=== PATIENT | female | born 1965 | race Caucasian/White ===

== ENCOUNTER 2022-08-02 10:55 | Inpatient (IN) | payer BC ==
[2022-08-02] MEDS ORDERED: CEFTRIAXONE 1000 MG/VIAL ONE (11:46)
[2022-08-02] MEDS ORDERED: NA CHLORIDE 0.9% 1,000 ML ONE (11:46)
[2022-08-02 12:02] LABS: Absolute Lymphocytes (CBC) 0.6 K/uL (0.7-4.9); Hematocrit 34.9 % (36.0-45.0); MCV 92.2 fL (80-100); MPV 7.7 fL (7.6-11.3); Protime INR 1.17; RBC Red Blood Cell Count 3.79 M/uL (3.86-4.86)
[2022-08-02] MEDS ORDERED: NA CHLORIDE 0.9% 2,000 ML ONE (12:09)
--- NOTE | 2022-08-02 12:09 | RAD REPORT ---
EXAM DESCRIPTION: RAD - Chest Single View - 08/02/2022 11:42 am CLINICAL HISTORY: CHEST PAIN COMPARISON: February 05 examination TECHNIQUE: AP portable chest image was obtained 08/02/2022 11:42 am . FINDINGS: Lung volumes are low. No peripheral mass or consolidations seen. Failure and volume overlo ad are not suspected. Heart size is magnified by shallow inspiration portable imaging. A mild cardiom egaly is suspected. No vascular engorgement seen. No measurable pleural effusion and no pneumothorax. No acute bony abnormality seen. No acute aortic findings suspected. IMPRESSION: Limited portable study without acute cardiopulmonary finding.
[2022-08-02] MEDS ORDERED: NA CHLORIDE 0.9% 100 ML IV ONE (12:10)
[2022-08-02] MEDS ORDERED: PIPERACIL/TAZO 3.375 GM VIAL IV ONE (12:10)
[2022-08-02 12:24] LABS: Urine Blood Trace-lysed (Negative); Urine Glucose Negative (Negative); Urine Protein 2+ (Negative); Urine Specific Gravity 1.025 (1.005-1.030); Urine pH 5.5 (5.0-7.0)
[2022-08-02 12:33] LABS: Blood Morphology Comment NOT SEEN (NOT SEEN); Platelet Estimate ADEQ
[2022-08-02] MEDS ORDERED: ERTAPENEM NA 1 GM in NA CHLORIDE 0.9% 100 ML IVPB ONE (13:00)
[2022-08-02 13:13] LABS: Albumin 2.3 g/dL (3.4-5.0); Bilirubin Direct 0.4 mg/dL (0-0.2); Bilirubin Total 0.7 mg/dL (0.2-1.0); Magnesium 2.3 mg/dL (1.6-2.4); Potassium 3.7 mmol/L (3.5-5.1); Protein, Total 6.6 g/dL (6.4-8.2); Troponin High Sensitivity 12.7 pg/mL (<58.9)
--- NOTE | 2022-08-02 13:28 | ER ---
Nurse's Notes [facility] Name: Marcie Da Silva Age: 57 yrs Sex: Female : 1965 Arrival Date: 08/02/2022 Time: 11:00 Bed 3 Private MD: Diagnosis: Morbid (severe) obesity with alveolar hypoventilation;Hypotension, unspecified-sepsis;Severe sepsis with septic shock;Other and unspecified ventral hernia with gangrene-and perforated viscus;Elevated white blood cell count;Acute kidney failure, unspecified Presentation: 08/02 11:20 Chief complaint: Pt's states "We saw Dr. Ricketts this morning because she's been aa5 sick since before and she was taking prednisone per the telemedicine doctor; Dr. Ricketts said to bring her in because her blood pressure was 70/40". Pt's states "she's coughing up phlegm and her stomach started hurting after having coughing episodes and the stomach pain hasn't gone away". 11:20 Coronavirus screen: cough unrelated to allergies. Ebola Screen: Patient denies travel aa5 to an Ebola-affected area in the 21 days before illness onset. Initial Sepsis Screen: Does the patient meet any 2 criteria? HR > 90 bpm. Does the patient have a suspected source of infection? Yes: Productive cough/pneumonia. Risk Assessment: Do you want to hurt yourself or someone else? Patient reports no desire to harm self or others. Onset of symptoms was 2021. 11:20 Acuity: LEISEO 3 aa5 11:20 Method Of Arrival: Wheelchair aa5 Historical: - Allergies: 11:29 PENICILLINS; aa5 - PMHx: 11:29 Hypertensive disorder; Hypercholesterolemia; Borderline Diabetes; aa5 - PSHx: 11:29 Hernia Sx; aa5 - Immunization history:: Adult Immunizations unknown. - Social history:: Smoking status: Patient denies any tobacco usage or history of. Screenin:04 [facility] ED Fall Risk Assessment (Adult) History of falling in the last 3 months, ld1 including since admission No falls in past 3 months (0 pts). Abuse screen: Denies threats or abuse. Denies injuries from another. Nutritional screening: No deficits noted. Tuberculosis screening: No symptoms or risk factors identified. Assessment: 11:48 Reassessment: Code sepsis called at 1138. General: Appears in no apparent distress. ld1 comfortable, Behavior is calm, cooperative, appropriate for age. Pain: Complains of pain in abdomen Pain does not radiate. Pain currently is 8 out of 10 on a pain scale. Quality of pain is described as sharp, throbbing. Neuro: Level of Consciousness is awake, alert, obeys commands, Oriented to person, place, time, situation. Cardiovascular: Capillary refill < 3 seconds Patient's skin is warm and dry. Cardiovascular: Rhythm is sinus tachycardia. Respiratory: Respiratory: Airway is patent Respiratory effort is even, unlabored. GI: Abdomen is round non-distended, Bowel sounds present X 4 quads. Abd is soft Abdomen is tender to palpation X 4 quads. : No signs and/or symptoms were reported regarding the genitourinary system. EENT: No signs and/or symptoms were reported regarding the EENT system. Derm: No signs and/or symptoms reported regarding the dermatologic system. Musculoskeletal: No signs and/or symptoms reported regarding the musculoskeletal system. 11:55 Reassessment: Notified ERP of VS. Pressure bag applied to fluids. 2nd line in place to ld1 left wrist. See MAR for orders. 12:10 Reassessment: ERP at bedside providing care. Patient states symptoms have not improved. ld1 12:43 Reassessment: Pt taken to CT via stretcher. chasidy 14:03 Reassessment: OR team at bedside discussing care. OR team transporting to OR. ld1 Vital Signs: 11:20 BP 93 / 53; Pulse 114; Resp 18 S; Temp 98.1(TE); Pulse Ox 98% on R/A; Weight 104.33 kg aa5 (R); Height 5 ft. 2 in. (157.48 cm) (R); 11:41 BP 72 / 53; Pulse 111; ld1 11:48 BP 67 / 49; Pulse 110; Resp 24; Pulse Ox 96% on R/A; ld1 12:45 BP 84 / 40; Pulse 109; Resp 18; Pulse Ox 97% on R/A; ld1 13:18 BP 89 / 52; Pulse 108; Resp 26; Pulse Ox 100% on R/A; mb9 13:47 BP 95 / 61; Pulse 108; Resp 28; Pulse Ox 98% on R/A; ld1 14:03 BP 104 / 67; Pulse 109; Resp 18; Pulse Ox 97% on R/A; ld1 11:20 Body Mass Index 42.07 (104.33 kg, 157.48 cm) aa5 ED Course: 11:00 Patient arrived in ED. mr 11:03 Dimitri Stinson MD is Attending Physician. sd 11:24 Arm band placed on. aa5 11:29 Triage completed. aa5 11:35 Sil Benito, ANIA is Primary Nurse. ld1 11:43 XRAY Chest (1 view) In Process Unspecified. EDMS 11:45 Patient has correct armband on for positive identification. Placed in gown. Bed in low ld1 position. Call light in reach. Side rails up X2. laboratory monitor on. Pulse ox on. NIBP on. Door closed. Noise minimized. 11:45 No provider procedures requiring assistance completed. Patient admitted, IV remains in ld1 place. 11:53 Inserted saline lock: 20 gauge in left wrist, using aseptic technique. zm 11:55 Inserted saline lock: 20 gauge in right wrist, using aseptic technique. Blood collected.zm 11:56 Lactate w/ 2H reflex if indic. Sent. zm 11:56 Lipase Sent. zm 11:56 Blood Culture Adult (2) Sent. zm 11:56 Basic Metabolic Panel Sent. zm 11:56 CBC with Diff Sent. zm 11:56 LFT's Sent. zm 11:56 Magnesium Sent. zm 11:56 NT PRO-BNP Sent. zm 11:56 PT-INR Sent. zm 11:56 Troponin HS Sent. zm 12:28 COVID-19/FLU A+B Sent. ld1 12:59 Chest Abd Pelvis Wo Con In Process Unspecified. EDMS 13:19 Kilo Bae MD is Hospitalizing Provider. [facility] Administered Medications: 11:56 Drug: NS 0.9% 1000 ml Route: IV; Rate: 1 bolus; Site: right wrist; ld1 11:56 Drug: Rocephin (cefTRIAXone) 1 grams Route: IV; Rate: per protocol; Site: left wrist; ld1 13:46 Drug: InvANZ (ertapenem) 1 grams Route: IVPB; Infused Over: 30 mins; Site: right wrist; ld1 Medication: 14:05 VIS not applicable for this client. ld1 Outcome: 13:27 Decision to Hospitalize by Provider. sd 14:04 Admitted to OR accompanied by nurse, via stretcher, with chart. ld1 14:04 Condition: stable 14:04 Instructed on the need for admit. 14:05 Patient left the ED. ld1 Signatures: Dispatcher [employer] EDDimitri Bradley MD MD cha Rivera, Mary mr Frey, Audra RN RN aa5 Sil Benito RN RN ld1 Gisselle Campa, Preethi Jara, RN RN mb9 Corrections: (The following items were deleted from the chart) 11:31 11:20 BP 93 / 53; Pulse 114bpm; Resp 18bpm; Spontaneous; Pulse Ox 98% RA; Temp 98.1F aa5 Temporal; aa5 11:31 11:29 Allergies: No Known Allergies; aa5 aa5
--- NOTE | 2022-08-02 13:28 | EDPHYS ---
Physician Documentation [facility] Name: Marcie Da Silva Age: 57 yrs Sex: Female : 1965 Arrival Date: 08/02/2022 Time: 11:00 Bed 3 Private MD: ED Physician Dimitri Stinson HPI: 08/02 12:19 This 57 yrs old Female presents to ER via Wheelchair with complaints of sd Abdominal Pain, Decreased Appetite, Shortness Of Breath, Low BP. 12:19 This 57 yrs old Female presents to ER via Wheelchair with complaints of sd Abdominal Pain, Decreased Appetite, Shortness Of Breath, Low BP. 12:19 The patient has shortness of breath at rest, with light activity. sd 12:19 Onset: The symptoms/episode began/occurred 5 day(s) ago. Duration: The symptoms are sd continuous, and are steadily getting worse. The patient's shortness of breath is aggravated by nothing, is alleviated by sitting up. Associated signs and symptoms: Pertinent positives:. 12:20 The patient presents with abdominal pain in the upper abdomen, in the lower abdomen. sd Severity of symptoms: At their worst the symptoms were moderate in the emergency department the symptoms are unchanged. The symptoms do not radiate. Associated signs and symptoms: none. The symptoms are described as constant. Historical: - Allergies: 11:29 PENICILLINS; aa5 - PMHx: 11:29 Hypertensive disorder; Hypercholesterolemia; Borderline Diabetes; aa5 - PSHx: 11:29 Hernia Sx; aa5 - Immunization history:: Adult Immunizations unknown. - Social history:: Smoking status: Patient denies any tobacco usage or history of. ROS: 12:21 Constitutional: Negative for fever, chills, and weight loss, Eyes: Negative for injury, sd pain, redness, and discharge, ENT: Negative for injury, pain, and discharge, Neck: Negative for injury, pain, and swelling, Cardiovascular: Negative for chest pain, palpitations, and edema, Back: Negative for injury and pain, : Negative for injury, bleeding, discharge, and swelling, MS/Extremity: Negative for injury and deformity, Skin: Negative for injury, rash, and discoloration, Neuro: Negative for headache, weakness, numbness, tingling, and seizure, Psych: Negative for depression, anxiety, suicide ideation, homicidal ideation, and hallucinations, Allergy/Immunology: Negative for hives, rash, and allergies, Endocrine: Negative for neck swelling, polydipsia, polyuria, polyphagia, and marked weight changes, Hematologic/Lymphatic: Negative for swollen nodes, abnormal bleeding, and unusual bruising. 12:21 Respiratory: Positive for cough, shortness of breath. 12:21 Abdomen/GI: Positive for abdominal pain, nausea and vomiting, of the right upper quadrant, left upper quadrant, right lower quadrant and left lower quadrant. Exam: 12:21 Constitutional: This is a well developed, well nourished patient who is awake, alert, sd and in no acute distress. Head/Face: Normocephalic, atraumatic. Eyes: Pupils equal round and reactive to light, extra-ocular motions intact. Lids and lashes normal. Conjunctiva and sclera are non-icteric and not injected. Cornea within normal limits. Periorbital areas with no swelling, redness, or edema. ENT: Nares patent. No nasal discharge, no septal abnormalities noted. Tympanic membranes are normal and external auditory canals are clear. Oropharynx with no redness, swelling, or masses, exudates, or evidence of obstruction, uvula midline. Mucous membranes moist. Neck: Trachea midline, no thyromegaly or masses palpated, and no cervical lymphadenopathy. Supple, full range of motion without nuchal rigidity, or vertebral point tenderness. No Meningismus. Chest/axilla: Normal chest wall appearance and motion. Nontender with no deformity. No lesions are appreciated. Cardiovascular: Regular rate and rhythm with a normal S1 and S2. No gallops, murmurs, or rubs. Normal PMI, no JVD. No pulse deficits. Respiratory: Lungs have equal breath sounds bilaterally, clear to auscultation and percussion. No rales, rhonchi or wheezes noted. No increased work of breathing, no retractions or nasal flaring. Back: No spinal tenderness. No costovertebral tenderness. Full range of motion. Female : Normal external genitalia. Skin: Warm, dry with normal turgor. Normal color with no rashes, no lesions, and no evidence of cellulitis. MS/ Extremity: Pulses equal, no cyanosis. Neurovascular intact. Full, normal range of motion. Neuro: Awake and alert, GCS 15, oriented to person, place, time, and situation. Cranial nerves II-XII grossly intact. Motor strength 5/5 in all extremities. Sensory grossly intact. Cerebellar exam normal. Normal gait. Psych: Awake, alert, with orientation to person, place and time. Behavior, mood, and affect are within normal limits. 12:21 ECG was reviewed by the Attending Physician. 12:21 Abdomen/GI: Inspection: distension, Bowel sounds: absent, Palpation: moderate abdominal tenderness, severe abdominal tenderness, in the right upper quadrant, left upper quadrant, right lower quadrant and left lower quadrant, Liver: no appreciated palpable abnormalities, Hernia: not appreciated. Vital Signs: 11:20 BP 93 / 53; Pulse 114; Resp 18 S; Temp 98.1(TE); Pulse Ox 98% on R/A; Weight 104.33 kg aa5 (R); Height 5 ft. 2 in. (157.48 cm) (R); 11:41 BP 72 / 53; Pulse 111; ld1 11:48 BP 67 / 49; Pulse 110; Resp 24; Pulse Ox 96% on R/A; ld1 12:45 BP 84 / 40; Pulse 109; Resp 18; Pulse Ox 97% on R/A; ld1 13:18 BP 89 / 52; Pulse 108; Resp 26; Pulse Ox 100% on R/A; mb9 13:47 BP 95 / 61; Pulse 108; Resp 28; Pulse Ox 98% on R/A; ld1 14:03 BP 104 / 67; Pulse 109; Resp 18; Pulse Ox 97% on R/A; ld1 11:20 Body Mass Index 42.07 (104.33 kg, 157.48 cm) aa MDM: 11:07 Patient medically screened. sd 12:22 Differential diagnosis: Anemia CHF exacerbation, Myocardial Infarction pneumonia, sd Sepsis bowel obstruction, Cholelithiasis, diverticulitis, gastritis, GI Bleed, Irritable bowel syndrome, sympomatic leaking abdominal aortic aneurysm, non-specific abd pain, pancreatitis, Peptic Ulcer Disease, Pyelonephritis, urinary tract infection. Antibiotic administration: zosyn. The patient's Wells Deep Vein Thrombosis Score was calculated as follows: Heart Rate >100 BPM (1.5 Pts) Total Score: 0-2 Pts- Low Risk. The patient's pulmonary embolism risk score was calculated as follows: the patients heart rate is greater than 100 beats per minute (1.5 Pts) Total Score: 0-2 points. This patient was found to be at low risk for a pulmonary embolism by using the Well's assessment criteria. Immunization status: Influenza vaccine: Data reviewed: vital signs, nurses notes, lab test result(s), EKG, radiologic studies, CT scan, plain films. Data interpreted: field education coordinator: rate is 110 beats/min, rhythm is regular, Pulse oximetry: on room air is 96 %. Test interpretation: by ED physician or midlevel provider: ECG, plain radiologic studies. 08/02 11:05 Order name: Basic Metabolic Panel; Complete Time: 13:16 [facility] 08/02 11:05 Order name: CBC with Diff; Complete Time: 12:48 [facility] 08/02 11:05 Order name: LFT's; Complete Time: 13:16 [facility] 08/02 11:05 Order name: Magnesium; Complete Time: 13:16 [facility] 08/02 11:05 Order name: NT PRO-BNP; Complete Time: 13:16 [facility] 08/02 11:05 Order name: PT-INR; Complete Time: 12:17 [facility] 08/02 11:05 Order name: Troponin HS; Complete Time: 13:16 [facility] 08/02 11:05 Order name: Blood Culture Adult (2) [facility] 08/02 11:05 Order name: Lipase; Complete Time: 13:16 [facility] 08/02 11:05 Order name: Lactate w/ 2H reflex if indic.; Complete Time: 12:48 [facility] 08/02 11:05 Order name: Urine Microscopic Only [facility] 08/02 12:18 Order name: COVID-19/FLU A+B; Complete Time: 13:48 [facility] 08/02 12:25 Order name: Urine Dipstick-Ancillary; Complete Time: 12:48 [facility] 08/02 12:27 Order name: Urine Dipstick-Ancillary [facility] 08/02 11:05 Order name: XRAY Chest (1 view); Complete Time: 12:17 [facility] 08/02 11:05 Order name: EKG; Complete Time: 11:06 [facility] 08/02 11:05 Order name: Cardiac monitoring; Complete Time: 11:48 [facility] 08/02 11:05 Order name: EKG - Nurse/Tech; Complete Time: 11:48 [facility] 08/02 11:05 Order name: IV Saline Lock; Complete Time: 11:48 sd 01/04 11:05 Order name: Labs collected and sent; Complete Time: 11:48 sd 08/02 11:05 Order name: O2 Per Protocol; Complete Time: 11:48 sd 08/02 11:05 Order name: O2 Sat Monitoring; Complete Time: 11:48 sd 08/02 12:33 Order name: Manual Differential; Complete Time: 12:48 EDMS 08/02 12:58 Order name: Chest Abd Pelvis Wo Con; Complete Time: 13:48 EDMS 08/02 13:15 Order name: CREATININE WHOLE BLOOD; Complete Time: 13:16 EDMS 08/02 13:49 Order name: Type And Screen; Complete Time: 02:53 bd 08/02 11:05 Order name: Urine Dipstick-Ancillary (obtain specimen); Complete Time: 12:28 sd 08/02 11:58 Order name: IV Saline Lock - Large Bore; Complete Time: 12:05 sd 08/02 12:07 Order name: Labs - recollect needed: recollect green top; Complete Time: 12:42 bd EC:21 Rate is 113 beats/min. Rhythm is regular. QRS Kevin is Normal. ND interval is normal. sd QRS interval is normal. QT interval is normal. No Q waves. T waves are Normal. No ST changes noted. Clinical impression: Sinus tachycardia. Interpreted by me. Reviewed by me. Administered Medications: 11:56 Drug: NS 0.9% 1000 ml Route: IV; Rate: 1 bolus; Site: right wrist; ld1 11:56 Drug: Rocephin (cefTRIAXone) 1 grams Route: IV; Rate: per protocol; Site: left wrist; ld1 13:46 Drug: InvANZ (ertapenem) 1 grams Route: IVPB; Infused Over: 30 mins; Site: right wrist; ld1 Disposition: 13:28 Critical Care:. sd Disposition Summary: 08/02/22 13:27 Hospitalization Ordered Hospitalization Status: Inpatient Admission sd Provider: Kilo Bae cha Location: Operating Room sd Condition: Guarded sd Problem: new sd Symptoms: have improved sd Bed/Room Type: Standard sd Room Assignment: sd Diagnosis - Morbid (severe) obesity with alveolar hypoventilation sd - Hypotension, unspecified - sepsis sd - Severe sepsis with septic shock sd - Other and unspecified ventral hernia with gangrene - and perforated viscus sd - Elevated white blood cell count sd - Acute kidney failure, unspecified sd Forms: - Medication Reconciliation Form sd - SBAR form sd Critical care time excluding procedures: 13:28 Critical care time: Bedside Care: 35 minutes, Consultation: 10 minutes, Family sd Intervention: 10 minutes. Total time: 55 minutes Signatures: Dispatcher [employer] EDMS Marcie Santiago Corey, MD MD cha Mickail, Joel, PA PA jmm Calderon, Audri RN RN aa5 [place], PATIENT SERVICE REPRESENTATIVE-C PATIENT SERVICE REPRESENTATIVE-Cla1 Sil Benito RN RN ld1 Corrections: (The following items were deleted from the chart) 11:31 11:29 Allergies: No Known Allergies; aa5 aa5 12:58 11:07 Abdomen Pelvis W Con+CT.RAD.BRZ ordered. EDMT EDMT
--- NOTE | 2022-08-02 13:33 | RAD REPORT ---
EXAM DESCRIPTION: CT - Chest Abd Pelvis Wo Con - 08/02/2022 12:58 pm CLINICAL HISTORY: Abdominal pain, acute, nonlocalized COMPARISON: Chest Single View dated 08/02/2022 TECHNIQUE: Axial 5 millimeter thick images of the chest, abdomen and pelvis were obtained without IV contrast. Oral contrast was administered. All CT scans are performed using dose optimization technique as appropriate and may include automated exposure control or mA/KV adjustment according to patient size. FINDINGS: The lungs are clear of mass and infiltrate. There is a 3.5 centimeter air-filled cystic c avity in the medial superior left upper lobe. No pneumothorax or pleural effusion. No chest wall mas s or abnormal axillary lymphadenopathy seen. Mediastinal and hilar regions show no mass or lymphaden opathy. No pericardial thickening or effusion. Heart size is upper normal to slightly enlarged. The liver, spleen and pancreas show no significant findings for non contrast imaging. Gallbladder an d biliary tree are normal. No hydronephrosis or obstructing calculus in either kidney. No nonobstructing calculi seen. There is an exophytic 2 centimeter low-density mass anterior upper pole left kidney that is probably an incide ntal cyst. Both kidneys appear mildly edematous, slightly worse on the right. There is perinephric st randing present. Right adrenal gland is unremarkable. The left adrenal gland contains a 3.0 centimete r low-density mass with a 6 HU attenuation value. There is an additional 4.6 centimeter fatty left ad renal mass with a -72 HU attenuation value. Neither is regarded as significant. Urinary bladder is co ntracted around a Huynh catheter. A 2.5 centimeter calcified uterine fibroid is present. Ovarian abno rmality is not suspected. No gastric dilatation or wall thickening. No suspicious gastric finding seen. Duodenum is normal size . Multiple dilated small bowel loops are present up to 3.7 cm in diameter from the ligament of Treitz to the approximately proximal ileum level. Distal most small bowel loops are not herniated. No dilat ion of the colon. The patient has a very complex ventral hernia with multiple abdominal wall defects from the umbilical to suprapubic region of the abdominal wall. There are numerous herniated small bow el loops in the more inferior intra umbilical portion of the hernia. The small bowel loops are not di lated. Area of greatest concern is at the superior aspect of the hernia at the level of the umbilicus . The mid transverse colon herniates through 1 of the small defects in the abdominal wall. There is a butting dilated small bowel. Moderately prominent extraluminal free air is present clustered in this area where the mid transverse colon herniates. Exact site of perforation is not seen. The colon perfo ration would be more common and a small bowel perforation. A separate mass of the small bowel is not seen. The small bowel anastomosis is present within the herniated small bowel in the inferior right p ortion of the hernia. The rutledge at the anastomosis are not thickened or edematous. No acute or pathologic bone process seen. Patient has very pronounced degenerative change near the rossy mbosacral junction. IMPRESSION: Bowel perforation is present and favored to be in the mid transverse colon where the col on herniates through 1 of the many small hernia defects in the periumbilical region. Moderate amount of free intraperitoneal air is present. Small bowel perforation is possible as well. Small bowel obstruction is present with numerous dilated small bowel loops from the ligament of Treitz to the proximal ileum level. A discrete small bowel ma ss is not seen. No disruption of the distal small bowel anastomosis identifiable. Patient has a very large and complex ventral hernia that extends from the umbilical to the suprapubic region. There are numerous defects in the abdominal wall. Inferiorly the complex hernia contains num erous nondilated small bowel loops. No hydronephrosis of either kidney. No obstructing calculi. Both kidneys do appear slightly edematous . Isodense masses and pyelonephritis are not excluded. No abscess.
[2022-08-02 13:35] LABS: SARS-COV-2 RT PCR NEGATIVE (NEGATIVE)
[2022-08-02] MEDS ORDERED: Ringers Lactate 1,000 ML IV ONE (14:06)
[2022-08-02] MEDS ORDERED: BUPIVACAINE 0.25% PF 30 ML VIAL ONE (14:11)
[2022-08-02] MEDS ORDERED: SUCCINYLCHOLINE 20 MG/ML (10 ML) IV ONE ×2 (14:34→14:39)
[2022-08-02] MEDS ORDERED: propofoL 200 MG/20 ML VIAL IV ONE (14:36)
[2022-08-02] MEDS ORDERED: FENTANYL CITR 100 MCG/2 ML ONE ×3 (14:36→18:41)
[2022-08-02] MEDS ORDERED: LIDOCAINE 2% MPF 5 ML VIAL ONE (14:37)
[2022-08-02] MEDS ORDERED: ROCURONIUM 50 MG/5 ML VIAL IV ONE ×2 (14:37→15:35)
[2022-08-02] MEDS ORDERED: ONDANSETRON 4 MG/2 ML VIAL IV PRN ×2 (14:37→20:09)
[2022-08-02] MEDS ORDERED: ONDANSETRON 4 MG/2 ML VIAL ONE (14:39)
--- NOTE | 2022-08-02 14:47 | P.HP ---
Certification for Inpatient Patient admitted to: Inpatient With expected LOS: >2 Midnights Patient will require the following post-hospital care: None Practitioner: I am a practitioner with admitting privileges, knowledge of patient current condition, hospital course, and medical plan of care. Services: Services provided to patient in accordance with Admission requirements found in Title 42 Section 412.3 of the Code of Federal Regulations <Ayan Snow - Last Filed: 08/02/22 18:01> Patient History Date of Service: 08/02/22 Reason for admission: Abdominal pain History of Present Illness: Patient is a 57-year-old female with a past medical history significant for hypertension, HLD, DM2, obesity who presents with complaint of abdominal distention and abdominal pain. Patient reported that she has been having abdominal distention for more than a year but started having generalized abdominal pain 3 days ago. Patient rated pain as 10/10 in severity and described pain as sharp in quality. Patient reported associated signs and symptoms of nausea, vomiting, shortness of breath, dizziness and generalized mal aise. Patient denies any other signs and symptoms. Patient reported that she initially went to see her PCP where her blood pressure was noted to be very low in the 70s\40s. Patient was referred to the ER for medical management by her PCP. While in the ER imaging indicated a bowel perforation. Patient was subsequently admitted to the hospital service. - Past Medical/Surgical History -: Hypertension -: Hyperlipidemia -: DM2 -: Morbid obesity Past Surgical History: Reviewed- Non-Contributory - Family History Family History: Reviewed- Non-Contributory - Social History Smoking Status: Unknown if ever smoked Alcohol use: No CD- Drugs: No Caffeine use: Yes Place of Residence: Home <Anne-MarieakshatAyan laurent John - Last Filed: 08/02/22 18:01> Date of Service: 08/02/22 <Kilo Bae - Last Filed: 08/02/22 20:10> Allergies Penicillins Allergy (Verified 08/02/22 14:16) Itching/Hives/Rash Review of Systems General: Malaise Eyes: Unremarkable ENT: Unremarkable Respiratory: Shortness of Breath Cardiovascular: Unremarkable Gastrointestinal: Nausea, Vomiting, Abdominal Pain, Distention Genitourinary: Unremarkable Musculoskeletal: Unremarkable Integumentary: Unremarkable Neurological: Other (Dizziness ) Lymphatics: Unremarkable <Ayan Snow - Last Filed: 08/02/22 18:01> Physical Examination - Vital Signs Temperature: 98.1 F Blood Pressure: 104/67 Pulse: 109 Respirations: 18 - Physical Exam General: Alert, In no apparent distress, Oriented x3, Cooperative HEENT: Atraumatic, PERRLA, Mucous membr. moist/pink, EOMI, Sclerae nonicteric Neck: Supple, 2+ carotid pulse no bruit, No LAD, Without JVD or thyroid abnormality Respiratory: Diminished Cardiovascular: No edema, Regular rate/rhythm, Normal S1 S2 Capillary refill: <2 Seconds Gastrointestinal: Hypoactive, Distended, Tenderness Musculoskeletal: No clubbing, No swelling, No contractures, No tenderness Integumentary: No rashes, No breakdown, No significant lesion Neurological: Normal speech, Normal tone, Normal affect Lymphatics: No axilla or inguinal lymphadenopathy - Studies Laboratory Data (last 24 hrs) 08/02/22 12:41: Sodium 135 L, Potassium 3.7, BUN 72 H, Creatinine 5.51 H*, Glucose 141 H, Magnesium 2.3, Total Bilirubin 0.7, AST 26, ALT 20, Alkaline Phosphatase 66, Lipase 76 08/02/22 11:49: PT 12.9 H, INR 1.17 08/02/22 11:49: WBC 30.80 H*, Hgb 11.9 L, Hct 34.9 L, Plt Count 389 <HenokAyan laurent John - Last Filed: 08/02/22 18:01> - Studies Laboratory Data (last 24 hrs) 08/02/22 12:41: Sodium 135 L, Potassium 3.7, BUN 72 H, Creatinine 5.51 H*, Glucose 141 H, Magnesium 2.3, Total Bilirubin 0.7, AST 26, ALT 20, Alkaline Phosphatase 66, Lipase 76 08/02/22 11:49: PT 12.9 H, INR 1.17 08/02/22 11:49: WBC 30.80 H*, Hgb 11.9 L, Hct 34.9 L, Plt Count 389 <Kilo Bae - Last Filed: 08/02/22 20:10> Assessment and Plan - Plan --Abdominal pain. CT imaging indicates bowel perforation in the mid transverse colon as well as small bowel obstruction and a very large and complex ventral hernia. Surgeon consulted. Surgeon plans to take patient to the OR. Continue supportive care. --Acute pain. We will manage pain on current pain medication regimen. --DM2. BS monitoring with sliding scale insulin. --Hyperlipidemia. Continue home medication when appropriate. --Hypertension. Patient currently hypotensive. We will hold off on BP meds. --Leukocytosis. Blood cultures pending. Continue antibiotics. --Sepsis POA. Blood cultures pending. Continue antibiotics. --UTI POA. Continue antibiotics. Urine cultures pending. --ARF. Nephrology consulted. Will await further recommendations. --Anemia of chronic disease. H&H pending. We will continue to monitor hemoglobin and transfuse if less than 7.0. --Class III obesity. Likely secondary to excess calories intake. Patient counseled on weight reduction, diet and exercise therapy. --DVT prophylaxis with SCDs. Discharge Plan: Home Plan to discharge in: Greater than 2 days - Advance Directives Does patient have a Living Will: No Does patient have a Durable POA for Healthcare: No - Code Status/Comfort Care Code Status Assessed: Yes Physician Review: Patient Assessed, Agree with Above Assessment and Plan Critical Care: No <Ayan Snow - Last Filed: 08/02/22 18:01> Physician Review: Patient Assessed, Agree with Above Assessment and Plan <Kilo Bae - Last Filed: 08/02/22 20:10>
[2022-08-02] MEDS: NOREPINEPHRINE BITARTRATE/D5W 4 MG/250 ML BAG IV ONE (15:10)
--- NOTE | 2022-08-02 15:38 | CON ---
Date of Consultation: 08/02/2022 Brief History Of Present Illness: Patient is a 57-year-old female known to me from previou s clinic encounters whereby she has a history of multiple ventral abdominal hernias. They are incisi onal recurrent ventral hernias from the past. She had opted to try nonoperative management at that t princess and tried to arrange surgery as an outpatient at later date. However, approximately 5 days ago, she developed worsening abdominal pain and some nausea and severe abdominal pain, which progressively got significantly worse to the point where she could not tolerate any more. They thought this was r elated to the gastrointestinal infection that she had been experiencing 2 weeks prior. However, she developed coughing, sneezing and significant abdominal pain approximately 5 days ago, as described ab alexandra, which exacerbated all of her symptoms, and as such, she came to the emergency room with the abov e-stated complaints. Past Medical History: Significant for hypertension, hypercholesterolemia, borderline diabetes. Past Surgical History: Includes a and a ventral abdominal hernia repair. Allergies: TO PENICILLIN. Social History: She denies smoking, alcohol, or recreational drug use. Review of Systems: A 10-point review of systems other than HPI, she has a subjective heat, but no objective fever. Othe rwise negative. Physical Examination: Vital Signs: At the time of my examination, her pulse is 114, respiratory rate 18, temper ature 98.1. She is saturating 98% on nasal cannula oxygen. Laboratory Data: Revealed a white blood cell count of 30.8, hemoglobin 11.9, hematocrit of 34.9, khang telet count was 389, neutrophils are 93%. Her PT was 12.9, INR 1.17. Her sodium is 135, potassium 3 .7, chloride 98, carbon dioxide 26, BUN 72, creatinine 5.51. Her whole blood creatinine was 6.3. He r glucose is 141. Her lactic acid was 2.4, direct bilirubin was 0.4, total bilirubin 0.7, AST 26, AL T 20, alkaline phosphatase 66, lipase 76. UA showed 2+ proteins, 1+ leukocyte esterase. She had a C T scan performed of the abdomen and pelvis, officially read by Dr. Elmore as bowel perforation is pr esent and favored to be in the midtransverse colon where the colon herniates through one of the many small hernia defects in the periumbilical region. Moderate amount of free intraperitoneal air is pre sent. Small bowel perforation is possible as well. Small bowel obstruction is present with numerous dilated small bowel loops from the ligament of Treitz to the proximal ileum. A discrete small bowel mass is not seen. No disruption of the distal small bowel anastomosis identifiable. Patient has a very large complex ventral hernia that extends from the umbilical to the suprapubic region. There ar e numerous defects in the abdominal wall inferiorly. The complex hernia contains numerous nondilated small bowel loops. No hydronephrosis on either kidney. No obstructing renal calculi. Both kidneys do appear slightly edematous. Isodense mass and pyelonephritis are not excluded. No abscesses. 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 There is a 3 cm low-density mass with 6 Hounsfield unit at tenuation value on the left adrenal. Assessment And Plan: This is a 57-year-old female who comes in with a complex abdominal wall hernia and evidence of perforation from an intestinal source. 1.IV fluid hydration. 2.Antibiotic coverage Invanz 1 g given. 3.Patient has evidence of septic shock with multiorgan dysfunction. 4.Continue sepsis treatment protocol with IV fluid hydration, medications. 5.I have explained that the patient has a perforated intraabdominal catastrophe likely with perforat ed colon and/or small bowel. As such, I have recommended exploratory laparotomy, possible likely bow el resection and indicated procedures including but not limited to partial colectomy and abdominal ly sis of adhesions. I have explained the risks, benefits, and alternatives including, but not limited to, bleeding, infection, damage to surrounding tissues, need for further operation and procedures. S he might have temporary abdominal closure. She might have a protracted course in the ICU. She might require multiple abdominal surgeries and perhaps her abdomen might necessitate a closure at a second janeen date due to her complex abdominal wall pathology and preexisting abdominal wall defects. 6.The patient and her agreed to proceed as indicated. We will continue critical care in the interim, and she will be followed in the ICU postoperatively. Thank you for this interesting consult. NEAL/FRANCESCO Voice ID: [id number] Report ID: [id number]
[2022-08-02 15:46] LABS: Magnesium 2.3 mg/dL (1.6-2.4); Phosphorus 5.8 mg/dL (2.5-4.9)
[2022-08-02] MEDS: Ringers Lactate 1,000 ML IV ONE ×10 (15:54→18:30)
[2022-08-02] MEDS ORDERED: GLUCAGON 1 MG/VIAL IM PRN (17:54)
[2022-08-02] MEDS ORDERED: VECURONIUM 10 MG/VIAL IV ONE (18:04)
--- NOTE | 2022-08-02 18:07 | RAD REPORT ---
EXAM DESCRIPTION: Romy Single View08/02/2022 6:00 pm CLINICAL HISTORY: Device placement/central venous catheter placement IMPRESSION: Central venous catheter with its tip in the superior vena cava No pneumothorax Endotracheal tube with its tip 1.5 centimeters above the top of the aortic arch. NG tube within the s tomach
[2022-08-02] MEDS ORDERED: MIDAZOLAM HCL 2 MG/2 ML INJ ONE (18:37)
[2022-08-02] MEDS ORDERED: D10W 250 ML BAG IV PRN (18:40)
[2022-08-02] MEDS: HETASTARCH/NACL (HESPAN) 1,000 ML IV ONE ×2 (18:45→18:57)
--- NOTE | 2022-08-02 19:19 | P.OP ---
Best Worker: Nathalia Cordero Preoperative diagnosis: Intestinal Perforation Postoperative diagnosis: Intestinal Perforation with necrosis Primary procedure: Exploratory Laparotomy, Small Bowel Resection, Partial omentectomy Secondary procedure: Primary small bowel anastamosis, Extensive Adhesiolysis >2 hours Other procedure(s): Primary abdominal closure Anesthesia: GETA Estimated blood loss: ~ 20cc Specimen: Small Bowel Findings: Multiple incarcerated hernias, strangulated necrotic small bowel Complications: None Drain(s): BERNARDINO drain (10 mm Flat BERNARDINO) Transferred to: ICU Condition: Critical
[2022-08-02] MEDS ORDERED: D5 0.45 NS 1,000 ML IV SCH (20:09)
[2022-08-02] MEDS ORDERED: ERTAPENEM SODIUM 1 GM VIAL IVPB SCH (20:09)
--- NOTE | 2022-08-02 20:44 | OP ---
Date of Procedure: 08/02/2022 Surgeon: Atilio Velasquez MD, Brief History Of Present Illness: The patient is a 57-year-old female, who presents the hospital wit h an acute surgical abdomen. CT scan was suspicious for perforation of intestines with free air. I explained the risks, benefits, alternatives of exploratory laparotomy, possible bowel resection indic ated procedure. The patient agreed to proceed as indicated. Preoperative Diagnosis: Therefore was small bowel obstruction/intestinal obstruction with intestinal perforation and free air. Postoperative Diagnosis: small bowel obstruction/intestinal obstruction with intestinal perforation and free air. Procedures Performed: 1.Exploratory laparotomy. 2.Small bowel resection. 3.Partial omentectomy. 4.Primary small bowel anastomosis. 5.Extensive adhesiolysis greater than 2 hours. 6.Primary abdominal closure. Anesthesia: General endotracheal. Estimated Blood Loss: 20 cc. Specimen: Small bowel. Findings: 1.Multiple abdominal hernias with incarcerated small bowel as well as omentum and multiple segments of the abdomen with a Burkinan cheese abdomen type appearance. 2.Strangulated necrotic small bowel contained within a hernia in the left lower quadrant of the abdo men. 3.The patient's abdominal wall was challenging due to the Burkinan cheese type consistency of the abdom inal wall due to the multiple hernias. Complications: None. Drains: 10 mm flat BERNARDINO drain. Disposition: The patient was transferred to ICU in critical condition. Procedure In Detail: After informed consent was obtained as described above, the patient was prepped and draped in the usual fashion with SCDs in place prior to induction. The patient remained supine. I then performed an upper midline laparotomy incision down to the periumbilical region down to the subcutaneous tissues with a 10 blade. I dissected down using electrocautery to enter the abdomen in the epigastric area. There were significant intraabdominal adhesions making entry to the abdomen elena y challenging and multiple abdominal hernias were encountered throughout the entire procedure. The e xtensive adhesiolysis was performed for approximately 2.5 hours to allow safe entry into the abdomen as there were multiple areas of difficulty accessing the abdomen. This was taken down using a combin ation of primarily sharp dissection with Metzenbaum scissors circumferentially down. After this was performed, loops of small bowel which were obviously necrotic were encountered in the left lower quad rant. These were firmly entrenched within hernias with a strangulated small bowel necrosis appearanc e. There was feculent material in the abdomen as well in this area consistent with perforation. In addition, there were multiple abscesses throughout the entire abdominal compartment. These were inte rloop as well as in multiple other positions. Some perihepatic, perisplenic, deep pelvis, space of r etzius and essentially throughout most of the abdominal compartment, there were multiple small absces ses encountered. Inflammatory necrotic fat liquid was encountered as well with a foul odor. After t he small bowel, finally adhesiolysis performed for an inspection of the bowel from the ligament of Tr eitz to the ileocecal valve. The distal approximately 80 cm of small bowel approximately 15 cm from the ileocecal valve was found to be concerning with ischemic changes and obvious necrosis. There wer e significant adhesions to the area and the adhesiolysis was extensive, and the bowel had an ischemic type appearance and as such I opted to remove the approximately 80 cm of small bowel in this area. I first created a mesenteric window, fired on the proximal distal sides of the 80 cm of distal small bowel. I fired a JADE 55 across the small bowel on the proximal and distal aspects. I then used the LigaSure device to take down the mesentery and take partial omentectomy which was obviously entrapped and necrotic within this same hernia and appeared to be irrecoverably necrotic. These segment of sm all bowel was sent off for pathologic examination after mesentery was ligated using the LigaSure luis ce and the omental necrosis was also sent off for pathological examination. I then copiously irrigat ed the abdomen after changing our gloves and gowns and ensuring the area was cleansed properly. I us ed approximately 3.5 to 4 L of sterile saline to irrigate all of the abdominal compartment and the pe rihepatic, perisplenic spaces posteriorly and abutting the kidneys and all the way down in the pelvis , both right and left lower quadrant as well as the pelvic structures in the space of Retzius and in the perirectal space. These were all irrigated copiously and suctioned out until completely clear. All effluent was clear after all multiple abscesses were irrigated out and cleansed properly. At thi s point, I palpated the OG tube, which was found to be in the stomach and functioning well. The [facility] thesia team was unable to pass nasogastric tube due to difficult anatomy by their description and as such, an orogastric tube remained in place and I palpated the position, which was found to be in the midportion of the stomach. At this point, no more adhesiolysis was necessary. I inspected the abdom inal wall. Multiple abscesses were encountered and multiple of these Burkinan cheese type abdominal her nias. I could not repair these abdominal hernias at this time and as such, the patient remained hemo dynamically labile throughout the procedure and I opted to perform a primary abdominal closure at thi s time as she was stable enough from a surgical standpoint at this time. I then brought the bowel in a [id number] peristaltic manner. I placed a proximal and distal 3-0 silk stay suture after aligni ng the mesenteric border of the small bowel. I then created a sterile field around this and created an enterotomy in the proximal distal aspect of the small bowel and fired the JADE 55 across this prima ry connection. The channel was patent and inspected and suctioned out. No hemostatic maneuvers were required and the channel remained widely patent. At this point, I then closed the common channel en terotomy using a running 3-0 PDS suture and a [place] type stitch. I then palpated the area once aga in and found to be good and watertight at this point. I then placed a second layer of Lembert suture s which were 3-0 silk sutures with good apposition of the tissues. I then irrigated the area locally and was found to be widely patent the anastomosis by palpation. I then closed the mesenteric defect using a 3-0 Vicryl suture in a running fashion with good closure of the mesenteric defect. I then w rapped with little omentum that was left around this area and inspected the abdomen one last time. N o hemostatic maneuvers were required and I additionally brought the 10 mm BERNARDINO drain onto the field renny ing a left upper quadrant stab incision with a 10 blade. I then passed the 10 mm flat BERNARDINO drain into the pelvic space and by the anastomosis and secured it with a 3-0 nylon suture at the skin level. At this point, I placed an abdominal fish in place and closed the abdomen in a running #1 looped PDS gordon ture stopping to place intermittent [id number] internal retention sutures of 1-0 Vicryl fashion. Approximately 4 of those were used in the entirety as I ran the #1 looped PDS suture to close the f ascia primarily. At this point, the skin level was irrigated copiously and closed with interrupted s taples and a sterile dressing placed over top. The patient tolerated the procedure well without evid ence of complication, was transferred to the ICU in serious/critical condition. All counts were pedro ect at the end of the case. NEAL/MODL Voice ID: [id number] Report ID: [id number]
[2022-08-02 20:48] LABS: Prealbumin 9.7 mg/dL (20-40)
[2022-08-02] MEDS ORDERED: INSULIN -REGULAR HUMAN 50 UNIT/0.5 ML ML SQ SCH ×2 (21:00)
[2022-08-02] MEDS: HYDROMORPHONE HCL 1 MG/ML INJ IV PRN (21:41)
[2022-08-02 23:05] LABS: Specific Gravity 1.023 (1.005-1.030); Urine Bacteria 20-50 /HPF (<20); Urine Bilirubin NEGATIVE (Negative); Urine Blood 2+ (Negative); Urine Clarity Extremely Turbid (Clear); Urine Color Yellow (Yellow); Urine Glucose NEGATIVE (Negative); Urine Mucus Slight /HPF (None Seen); Urine Protein 2+ (Negative); Urine RBC <5 /HPF (None Seen); Urine Urobilinogen 1+ (Normal); Urine pH 5.5 (5.0-7.0)
[2022-08-02 23:55] LABS: CKMB Creatine Kinase MB 4.3 ng/mL (1.0-3.6); Potassium 4.1 mmol/L (3.5-5.1); Uric Acid 7.7 mg/dL (2.6-6.0)
[2022-08-03] MEDS: NA CHLORIDE 0.9% 1,000 ML IV SCH ×4 (00:14→23:32)
[2022-08-03] MEDS: HEPARIN 5000 UNIT/ML 1 ML VIAL SQ SCH ×3 (00:14→17:25)
[2022-08-03] MEDS: INSULIN -REGULAR HUMAN 50 UNIT/0.5 ML ML SQ SCH ×5 (00:26→17:25)
[2022-08-03] MEDS ORDERED: PIPER TAZO 3.375 GM in NA CHLORIDE 0.9% 100 ML IV SCH (01:00)
[2022-08-03] MEDS: FENTANYL CITR 100 MCG/2 ML IV PRN (01:44)
[2022-08-03] MEDS: MIDAZOLAM HCL 2 MG/2 ML INJ IV PRN (02:02)
[2022-08-03] MEDS: NOREPINEPHRINE 4 MG in D5W 250 ML IV SCH ×5 (03:00→05:25)
[2022-08-03] MEDS ORDERED: NOREPINEPHRINE BITARTRATE/D5W 4 MG/250 ML BAG IV ONE (05:39)
[2022-08-03 05:53] LABS: Blood Gas Oxyhemoglobin 92.8 % (94-97); Blood O2 Saturation 95.2 % (92-98.5)
[2022-08-03 05:54] LABS: Arterial Blood Carboxyhemoglob 0.7 % (0-1.5)
[2022-08-03 06:02] LABS: Absolute Lymphocytes (CBC) 0.3 K/uL (0.7-4.9); Hematocrit 31.7 % (36.0-45.0); Lymphocytes % 1.4 % (15.3-44.8); MPV 8.4 fL (7.6-11.3); RBC Red Blood Cell Count 3.38 M/uL (3.86-4.86)
[2022-08-03 06:23] LABS: Magnesium 2.1 mg/dL (1.6-2.4); Phosphorus 7.4 mg/dL (2.5-4.9); Potassium 4.3 mmol/L (3.5-5.1)
[2022-08-03] MEDS: NOREPINEPHRINE BITARTRATE/D5W 4 MG/250 ML BAG IV ONE ×3 (06:58→12:38)
[2022-08-03] MEDS: NOREPINEPHRINE BITARTRATE/D5W 4 MG/250 ML BAG IV SCH ×3 (07:00→10:34)
--- NOTE | 2022-08-03 08:11 | RAD REPORT ---
EXAM DESCRIPTION: RAD - Chest Single View - 08/03/2022 5:23 am CLINICAL HISTORY: Tube placement COMPARISON: Chest Single View dated 08/02/2022; Chest Single View dated 08/02/2022; CHEST PA AND LAT 2 V IEW dated 02/02/2010; Chest Abd Pelvis Wo Con dated 08/02/2022 FINDINGS: Lines: Endotracheal tube in satisfactory position approximately 1 cm above the keny. The neck is also in a flexed position. Enteric tube below the diaphragm. Right IJ approach central venou s line with tip overlying the right atrium. Lungs: Decreased lung volumes with increasing bilateral interstitial airspace disease. Pleural: No significant pleural effusions or pneumothorax. Cardiac: The heart size is within normal limits. Mediastinum: Within normal limits. Bones: No acute fractures. Other: None IMPRESSION: 1. Support apparatus in satisfactory position. 2. Decreased lung volumes could reflect atelectasis, aspiration, and/or edema.
[2022-08-03] MEDS: HYDROMORPHONE HCL 1 MG/ML INJ IV PRN ×2 (10:42→19:27)
[2022-08-03] MEDS ORDERED: SODIUM CHLORIDE 0.9% 10ML INJ IV PRN (11:17)
[2022-08-03] MEDS ORDERED: VASOPRESSIN 80 UNIT in NA CHLORIDE 0.9% 250 ML IV PRN ×2 (12:02→13:48)
[2022-08-03] MEDS ORDERED: D50W 25 GM/50 ML SYRINGE IV PRN (12:16)
[2022-08-03] MEDS ORDERED: GLUCAGON 1 MG/VIAL IM PRN (12:16)
--- NOTE | 2022-08-03 12:20 | P.PN ---
Subjective Date of Service: 08/03/22 Chief Complaint: Abdominal pain Subjective: New changes (Patient remains intubated / sedation on Vent, but responsive with non-verbal responses. Denies pain or breathing issues.) Physical Examination - Vital Signs Temperature: 97 F Blood Pressure: 92/56 Pulse: 118 Respirations: 25 Pulse Ox (%): 93 - Physical Exam General: Alert, In no apparent distress, Cooperative HEENT: Other Neck: Supple Respiratory: Diminished, Crackles/rales Cardiovascular: Other (tachycardic, ) Capillary refill: Brisk Gastrointestinal: Other (soft, mild appropriate TTP, ND, jose alfredo in place, serousanguanous output, reinier in place) Musculoskeletal: Swelling Integumentary: No rashes Urinary: Fisher catheter - Studies Laboratory Data (last 24 hrs) 08/02/22 12:41: Sodium 135 L, Potassium 3.7, BUN 72 H, Creatinine 5.51 H*, Glucose 141 H, Magnesium 2.3, Total Bilirubin 0.7, AST 26, ALT 20, Alkaline Phosphatase 66, Lipase 76 08/02/22 11:49: WBC 30.80 H*, Hgb 11.9 L, Hct 34.9 L, Plt Count 389 Assessment And Plan - Plan 57 year old woman s/p Exploratory laparotomy, small bowel resection, drainage of multiple intra-abdominal abscesses, primary closure on 08-02-2022 for Small bowel obstruction with necrosis. Gen: Pain currently controlled with Fentanyl - recommend minimize dilaudid, benzodiazepines as much as possible CVS: Remains hemodynamically unstable with tachy-arrhythmia with hypotension requiring pressor support, currently on levophed, will add minimal vasopressin @ 0.02 u/min and titrate to 0.04 u/min as needed, likely all due to multiple factors including septic shock, pain, ect. Pulm: Remains ventilated, will keep ventilated today, peak pressures on vent remain elevated, but other parameters are adequate on Assist Control. recommend tidal volume 5-7cc/kg, pulmonary toilet to continue, NT suctioning, Dr. Glass consulted. Daily chest x-rays GI: await bowel function - anticipate ileus due to significant intra-abdominal pathology and surgery, NGT in place FEN: NS @ 125cc/hr, electrolyte replacement protocol, nutrition - TPN ordered, pending start ID: continue Invanz, patient is pen-allergic, has septic shock Renal: profound oliguria likely due to septic shock, Dr. Jasso following, pressors likely contributing minimally, continue to monitor acid base status / Lactate Heme: hemoglobin stable Prophylaxis: on Heparin 5k SQ, continue SCDs, will start PPI prophylaxis, NGT somewhat reddish Placement : will see how patient responds to treatment, but may need rehab Tubes / Line: Intubated, Orogastric tube, fisher catheter, central line in RIGHT IJ, JOSE ALFREDO in place in LLQ. PT/OT - will suspend consult for now, but when extubated will restart when more stable. Endo: hyperglycemia - will change to moderated dose insulin sliding scale, will likely transition to high scale and possible drip if TPN initiated. Direct Patient Critical Care Time: 45 minutes Physician Review: Patient Assessed, Agree with Above Assessment and Plan
[2022-08-03] MEDS ORDERED: INSULIN -REGULAR HUMAN 50 UNIT/0.5 ML ML SQ SCH (12:30)
[2022-08-03] MEDS: PANTOPRAZOLE 40 MG INJ IVP SCH (12:31)
[2022-08-03] MEDS: ERTAPENEM NA 0.5 GM in NA CHLORIDE 0.9% 100 ML IVPB SCH (12:32)
--- NOTE | 2022-08-03 12:33 | P.CNS ---
Date of Consult: 08/03/22 Reason for Consult: Patient on a ventilator Chief Complaint: Abdominal pain History of Present Illness: Patient is 57 years of age she just recently underwent expiratory laparotomy small bowel resection partial bowel anastomosis and lysis of adhesions is curre ntly on a ventilator. Patient's condition is stable however she appears to have a GI bleed dynamically stable Allergies Penicillins Allergy (Verified 08/02/22 14:16) Itching/Hives/Rash - Past Medical/Surgical History Diabetic: Yes -: Hypertension -: Hyperlipidemia -: DM2 -: Morbid obesity -: incarcerated Hernia repair -: x1 - Family History Mother Medical History: Heart disease, Cancer Father Medical History: Heart disease, Hypertension Sister Medical History: Cancer - Social History Alcohol use: No CD- Drugs: No Caffeine use: Yes Place of Residence: Home Review of Systems is unable to be obtained Physical Examination Temp Pulse Resp BP Pulse Ox 97 F 118 H 25 H 92/56 L 93 08/03/22 12:19 08/03/22 12:19 08/03/22 12:19 08/03/22 12:19 08/03/22 12:19 General: Alert Respiratory: Clear to auscultation bilaterally, Diminished Cardiovascular: No edema, Regular rate/rhythm Gastrointestinal: Hypoactive, Soft and benign Laboratory Data (last 24 hrs) 08/02/22 12:41: Sodium 135 L, Potassium 3.7, BUN 72 H, Creatinine 5.51 H*, Glucose 141 H, Magnesium 2.3, Total Bilirubin 0.7, AST 26, ALT 20, Alkaline Phosphatase 66, Lipase 76 08/02/22 11:49: WBC 30.80 H*, Hgb 11.9 L, Hct 34.9 L, Plt Count 389 - Problems (1) Respiratory failure Current Visit: Yes Status: Acute Plan: Patient is 57 years of age admitted with bowel per surgery done appears to have some GI bleeding NG aspirate is bloody dynamically stable oxygenation satisfactory chest x-ray shows cardiomegaly endotracheal tube in satisfactory position patient appears to have chronic renal failure count is elevated and is declining patient is on assist control FiO2 50% await for general surgery recommendations whenever patient is ready should be able to wean off and extubated patient is also hypotensive on Levophed we will also started on vas opressin patient is a Protonix IV Qualifiers: Chronicity: acute
[2022-08-03] MEDS ORDERED: FUROSEMIDE 40 MG/4 ML VIAL IV ONE (14:00)
[2022-08-03] MEDS: NOREPINEPHRINE 8 MG in Dextrose 5%-Water 500 ML IV SCH ×3 (14:02→21:05)
--- NOTE | 2022-08-03 14:16 | P.PN ---
Subjective Date of Service: 08/03/22 Chief Complaint: Abdominal pain POD # 1 from exploratory laparotomy, small bowel resection, drainage of multiple intra-abdominal abscesses, partial omentectomy, primary small bowel anastomosis, extensive adhesiolysis greater than 2 hours, primary abdominal closure. She was seen on rounds this morning. She is currently intubated and sedated. Family members at bedside. She remains tachycardic in the 110s-120s. Despite norepinephrine, her blood pressures have remained soft. Discussed with Dr. Velasquez, will start vasopressin. Review of Systems is unable to be obtained Physical Examination - Vital Signs Temperature: 97 F Blood Pressure: 92/56 Pulse: 118 Respirations: 25 Pulse Ox (%): 93 - Physical Exam General: Other (intubated, sedated) HEENT: Atraumatic, Sclerae nonicteric Neck: JVD not distended Respiratory: Clear to auscultation bilaterally, Normal air movement Cardiovascular: No gallops, No rubs, No murmurs, Other (tachycardic rate), Edema (trace BLE) Gastrointestinal: Hypoactive, Other (surgical site covered in clean surgical dressing) Musculoskeletal: No clubbing Integumentary: No rashes Neurological: Other (sedated) Assessment And Plan - Plan # Septic Shock likely secondary to Multiple Intra-Abdominal Abscesses and Possible Acute Pyelonephritis # Complex Ventral Hernia with Bowel Obstruction and Transverse Colon Perforation # Multiple Herniated Small Bowel Loops She met sepsis criteria based on HR > 90 bpm, RR > 20 breaths/min, and WBC > 12,000 and the suspected source is an intra-abdominal abscess vs pyelonephritis. Severe sepsis is suspected due to concern for tissue hypoperfusion/organ dysfunction based on acute respiratory failure requiring intubation, hypotension (SBP < 90, MAP < 65), creatinine >2.0 mg/dL (without ESRD), lactic acid > 2 mmol/L. Septic shock is suspected due to SBP < 90 mmHg , MAP <65. - Sepsis order set was initiated - Lactate trend = 2.4 -> 1.5 - Per Dr. Velasquez, obtain daily lactate levels for the purpose of monitoring for ischemia/hypoperfusion of bowel - Blood cultures drawn before antibiotics were given - Broad spectrum antibiotics started: Ertepenem - In regards to fluids: - 30 mL/kg of IV fluids was given based on patient's actual body weight - Despite fluids, she remained hypotensive - she has been started on norepinephrine and vasopression drips - Consulted General Surgery and spoke with Dr. Velasquez - recommendations appreciated - S/P Exploratory laparotomy, small bowel resection, partial omentectomy, intra-abdominal abscess drainage, primary small bowel anastomosis, extensive adhesiolysis greater than 2 hours, and primary abdominal closure (08/02/2022) # KDIGO Stage III Acute Kidney Injury # Left Renal Cyst (2 cm) Suspect acute tubular necrosis in the setting of septic shock. - Consulted Nephrology and spoke with Dr. Jasso - recommendations appreciated - Creatinine = 5.51 -> 4.90 -> 4.97 - Urinalysis = 2+ blood, 250 leukocyte esterase, >50 WBCs, 20-50 bacteria, 2+ protein - Ordered renal ultrasound - Monitor creatinine and urine output - Renally dose medications # Left Upper Lobe Cavitary Lesion (3.5 cm) - Pulmonary Medicine consulted and spoke with Dr. 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
[2022-08-03] MEDS ORDERED: FUROSEMIDE 40 MG in NA CHLORIDE 0.9% 50 ML IV ONE (15:00)
--- NOTE | 2022-08-03 15:24 | EKG ---
Test Date: 2022-08-02 Test Time: 11:40:46 Radiology Clerk: LIZ MEASUREMENT RESULTS: Intervals: Rate: 0 [place]: QRSD: 0 QT: 0 QTc: 0 [place]: P: [place]: QRS: 0 T: 0 INTERPRETIVE STATEMENTS: No QRS complexes found, no ECG analysis possible Electronically Signed On 08-03-22 15:21:56 WAIVER ANALYST by Bandar Stanton
--- NOTE | 2022-08-03 15:24 | EKG ---
Test Date: 2022-08-02 Test Time: 11:40:19 Director Global Strategic Publisher Sales: LIZ MEASUREMENT RESULTS: Intervals: Rate: 113 [place]: 144 QRSD: 88 QT: 330 QTc: 452 [place]: P: 57 [place]: 144 QRS: -35 T: 33 INTERPRETIVE STATEMENTS: Sinus tachycardia Possible Left atrial enlargement Left axis deviation Left ventricular hypertrophy Abnormal ECG Compared to ECG 02/02/2010 08:10:37 Left-axis deviation now present Left ventricular hypertrophy now present Sinus rhythm no longer present Electronically Signed On 08-03-22 15:22:01 RECOATING MACHINE OPERATOR by Bandar Stanton
[2022-08-03] MEDS ORDERED: NOREPINEPHRINE 4 MG/4 ML VIAL ONE (17:42)
--- NOTE | 2022-08-03 22:50 | CON ---
Date of Consultation: 08/03/2022 Reason For Consultation: Elevated BUN and creatinine and fluid management. History Of Present Illness: All the information has been obtained from the patient and the daughter by bedside. This is a pleasant unfortunate 57-year-old female with significant past medical history of borderline diabetes, hypertension, hyperlipidemia. The patient was in her regular state of health up to [place], around [place] the patient started feeling sick with nausea with abdominal pain. The patient started having nausea and vomiting and for that reason, reported to her primary care. U julianne arrival to the primary care's office, the patient was found to have hypotension, blood pressure w as down to the 70. For that reason, patient was referred to the hospital. Upon arrival to the [facility], the patient continued to have low blood pressure. Workup including CT found to have multiple sm all bowel perforations. CT was done without any contrast. The patient was taken to the OR emergentl y. In the ER, the patient received 2 L and then in the OR to maintain the blood pressure, the patien t received another 5 L with colloid fluid another L. In the last 24 hours, the patient had only arou nd 150 to 175 mL of urine. When we questioned the patient, the patient apparently was taking a blood pressure medication, but does not know the name. Also the patient had been taking ibuprofen 200 mg daily for the last 2 weeks. The patient denied any history of kidney disease before. Upon arrival t o the hospital, creatinine was 5.1 and today it is 4.7, but this is after giving almost 9 L. The pat ient continued to be intubated and anuric. Past Medical History: 1.Hypertension. 2.Diabetes. 3.Hyperlipidemia. 4.Obesity. Past Surgical History: Small bowel resection secondary to perforation. Family History: Positive for hypertension. Social History: Denied smoking. Denied drinking. Denied drug abuse. Allergies: PENICILLIN. Review of Systems: Head and Neck: No red eye. No ear pain. GI: Has abdominal pain. Has nausea and vomiting. : The patient anuric. Sand Conditioner Machine: No vaginal discharge. Respiratory: The patient intubated. Cardiovascular: No chest pain, but low blood pressure. Endocrine: No polydipsia. Skin: No rash. Neuro: Has neuropathy. Musculoskeletal: Generalized fatigue. Physical Examination: Vital Signs: When I saw the patient blood pressure was 92/56, pulse of 118, afebrile. Chest: Decreased entry at bilateral base. Heart: S1, S2. Regular. Abdomen: Tender with dressing. No guarding or rebound. Extremities: +2 edema. Neuro: Alert, understands, opened eyes spontaneously. No focality. Laboratory Data: CT done yesterday did not show any hydronephrosis, no obstruction, but severe perin ephric stranding. Sodium 135, potassium 4.3, bicarb 22, BUN 78, creatinine 4.9, calcium 7.9, phospho darshana 7.4, and magnesium 2.1. CK 251. Cortisol 111. Urinalysis: WBC more than 50, specific gravity 1.023, and PC ratio is 1.5. WBC 21.3, hemoglobin 10.7, and platelets 420. Current Medications: The patient on include ertapenem, Levophed, Zofran, and vasopressin. Assessment: 1.Acute kidney injury multifactorial secondary to toxic acute tubular necrosis secondary to sepsis. 2.Interstitial nephritis secondary to nonsteroidal antiinflammatory drug use including ibuprofen. 3.Poor perfusion, acute tubular necrosis secondary to shock. Currently, patient over volume anuric. The patient received enough fluid resuscitation. a.Obstructive uropathy has been ruled out. b.I am going to decrease IV fluid to 100 per hour and I am going to give the patient 40 mg of Lasix on slow infusion to try to convert the patient from oliguric to nonoliguric or normal urine output as the patient does not have any hyperkalemia or acidosis currently, except for fluid status and the pa tient already intubated. If we manage to convert that, the patient will not need any renal replaceme nt therapy, but if the patient continued to be anuric or her electrolyte balance has worsening, at th at time we will initiate renal replacement therapy. I had long discussion with the patient with the presence of the daughter by the bedside about the treatment plan and both verbalized understanding. 4.Hypertension with the presence of low blood pressure and acute kidney injury. Hold all blood pres sure medication. 5.Sepsis and septic shock. Currently patient on optimal antibiotic cover, appropriate dose. Contin ue supportive care with pressor. 6.Respiratory failure secondary to over volume. We will try with diuresis. If failed, we will star t dialysis. 7.Perforated bowel. Follow up with Surgery. Continue current antibiotic. 8.Mild rhabdomyolysis. The patient is anuric. The patient received hydration. The patient may nee d renal replacement therapy. We will follow up. Thank you Dr. Bae for allowing us to participate in the care of your patient. Time spent examining the patient, [id number], placing order, reviewing data, lab and radiology, dis cussing the case with the patient and family by bedside, discussing the case with the field marketing team leader inc amishing nursing in the ICU and hospitalist is more than 65 minutes. ANKUR Voice ID: [id number] Report ID: [id number]
[2022-08-04] MEDS: HEPARIN 5000 UNIT/ML 1 ML VIAL SQ SCH ×3 (00:33→17:02)
[2022-08-04] MEDS: INSULIN -REGULAR HUMAN 50 UNIT/0.5 ML ML SQ SCH ×5 (00:34→17:32)
[2022-08-04] MEDS: NOREPINEPHRINE 8 MG in Dextrose 5%-Water 500 ML IV SCH ×3 (04:00→21:07)
[2022-08-04] MEDS: MIDAZOLAM HCL 2 MG/2 ML INJ IV PRN ×2 (04:25→07:47)
[2022-08-04] MEDS: FENTANYL CITR 100 MCG/2 ML IV PRN ×2 (04:25→21:33)
[2022-08-04 04:51] LABS: Absolute Lymphocytes (CBC) 0.5 K/uL (0.7-4.9); Hematocrit 26.2 % (36.0-45.0); Lymphocytes % 2.6 % (15.3-44.8); MCV 92.5 fL (80-100); MPV 7.5 fL (7.6-11.3); RBC Red Blood Cell Count 2.83 M/uL (3.86-4.86)
[2022-08-04 05:08] LABS: Albumin 1.3 g/dL (3.4-5.0); Bilirubin Total 0.4 mg/dL (0.2-1.0); Magnesium 2.1 mg/dL (1.6-2.4); Phosphorus 6.3 mg/dL (2.5-4.9); Potassium 3.3 mmol/L (3.5-5.1); Protein, Total 4.8 g/dL (6.4-8.2)
[2022-08-04] MEDS: PANTOPRAZOLE 40 MG INJ IVP SCH (07:17)
[2022-08-04] MEDS: NA CHLORIDE 0.9% 1,000 ML IV SCH (07:17)
--- NOTE | 2022-08-04 07:31 | RAD REPORT ---
EXAM DESCRIPTION: RAD - Chest Single View - 08/04/2022 4:46 am CLINICAL HISTORY: intubated on MV COMPARISON: Chest Single View dated 08/03/2022; Chest Single View dated 08/02/2022; Chest Single View da bhumi 08/02/2022; CHEST PA AND LAT 2 VIEW dated 02/02/2010 FINDINGS: Lines: Endotracheal tube at the aortic arch. NG tube below the diaphragm. Right IJ approac h central line with tip overlying the right atrium. Lungs: The lung volumes are slightly improved. Bilateral hazy opacities. Pleural: Difficult to exclude small effusions. Linear atelectasis in the left upper lobe. Cardiac: Cardiomegaly. Mediastinum: Within normal limits. Bones: No acute fractures. Other: None IMPRESSION: Mild improved lung volumes but persistent hazy opacities bilaterally that could reflect combination of atelectasis, edema, and/or aspiration. Support apparatus in satisfactory position.
--- NOTE | 2022-08-04 07:55 | RAD REPORT ---
EXAM DESCRIPTION: US - Renal Ultrasound-Complete - 08/03/2022 11:52 pm CLINICAL HISTORY: PANDA COMPARISON: HEPATOBILIARY DUCTAL IMAGING dated 01/19/2010; Chest Abd Pelvis Wo Con dated 08/02/2022 FINDINGS: Both kidneys are normal in size, shape and echotexture. The right kidney measures 13.7 cm. Right-sided perinephric fluid is present. No hydronephrosis. The left kidney measures 13.2 cm. Hypoechoic structure along the upper pole of the left kidney consis tent with a cyst better characterized on the CT dated 08/02/2022. No hydronephrosis. IMPRESSION: No hydronephrosis. Small volume of right perinephric fluid. Left upper pole renal cyst.
[2022-08-04] MEDS ORDERED: NA CHLORIDE 0.9% 1,000 ML IV SCH (08:12)
[2022-08-04] MEDS ORDERED: GLUCAGON 1 MG/VIAL IM PRN ×2 (08:24→17:29)
[2022-08-04] MEDS ORDERED: D50W 25 GM/50 ML SYRINGE IV PRN ×2 (08:24→17:29)
[2022-08-04 08:58] LABS: Hepatitis B Core Ab, Total Nonreactive (Nonreactive); Hepatitis B surface AG Interp. Nonreactive (Nonreactive)
[2022-08-04 08:59] LABS: Hepatitis B Surface Ab - Quant < 3.10 mIU/mL (<8.0)
--- NOTE | 2022-08-04 09:47 | P.PN ---
Subjective Date of Service: 08/04/22 Chief Complaint: Abdominal pain Subjective: Improving (Patient remains intubated on vent, continues to have high peak pressures but trending down overall, NT suctioning performed. Pressors have weaned but not stopped @ this time, she has some continued recurrent arrhythmia, but did not coorelate with hypotension.) Physical Examination - Vital Signs Temperature: 96.9 F Blood Pressure: 87/55 Pulse: 107 Respirations: 26 Pulse Ox (%): 96 - Physical Exam General: Alert, In no apparent distress, Cooperative HEENT: Mucous membr. moist/pink Neck: Supple Respiratory: Diminished, Crackles/rales Cardiovascular: Irregular heart rate/rhythm Gastrointestinal: Other (soft, mild appropriate TTP, ND, incision clean, and dry, BERNARDINO serous today, ) Musculoskeletal: Swelling Integumentary: No rashes, No breakdown Urinary: Fisher catheter External genitalia: No edema Assessment And Plan - Plan 57 year old woman s/p Exploratory laparotomy, small bowel resection, drainage of multiple intra-abdominal abscesses, primary closure on 08-02-2022 for Small bowel obstruction with necrosis. Gen: Pain currently controlled with Fentanyl - Hold dilaudid, benzodiazepines as much as possible CVS: Remains hemodynamically unstable with tachy-arrhythmia with hypotension requiring pressor support, currently on levophed, will continue minimal vasopressin, likely all due to multiple factors including septic shock, pain, ect. Has more irregular rhythm today, I have consulted and spoken with Dr. Stanton for recommendations - had a brief 7 beat run of Ventricular Tachycardia. Levophed is weaning down. Pulm: Remains ventilated,peak pressures on vent remain elevated, but other parameters are adequate on Assist Control. recommend tidal volume 5-7cc/kg, pulmonary toilet to continue, NT suctioning, Dr. Glass consulted. Daily chest x-rays, wean to extubate as tolerated GI: await bowel function - anticipate ileus due to significant intra-abdominal pathology and surgery, NGT in place, BERNARDINO remains serous today, FEN: NS @ 100 cc/hr, electrolyte replacement protocol, nutrition - TPN ordered, pending start - will reduce IVF when TPN started. ID: continue Invanz, patient is pen-allergic, has septic shock, Renal: profound oliguria likely due to septic shock, Dr. Jasso following, pressors likely contributing minimally, continue to monitor acid base status / Lactate, patient responded to lasix, but recommend holding any further diuresis while Hemodynamically labile. Heme: hemoglobin trending down, leukocytosis continues to improve. Prophylaxis: on Heparin 5k SQ, continue SCDs, continue protonix PPI prophylaxis, OG tube improving. Placement : will see how patient responds to treatment, but may need rehab Tubes / Line: Intubated, Orogastric tube, fisher catheter, central line in RIGHT IJ, BERNARDINO in place in LLQ. PT/OT - will suspend consult for now, but when extubated will restart when more stable. Endo: hyperglycemia - will change to High dose insulin sliding scale, will likely transition to high scale and possible drip when TPN started and will add insulin to TPN as needed Direct Patient Critical Care Time: 45 minutes Physician Review: Patient Assessed, Agree with Above Assessment and Plan
[2022-08-04] MEDS ORDERED: POTASSIUM CL 40 MEQ in NA CHLORIDE 0.9% 500 ML IV SCH (12:00)
[2022-08-04] MEDS: ERTAPENEM NA 0.5 GM in NA CHLORIDE 0.9% 100 ML IVPB SCH (12:32)
--- NOTE | 2022-08-04 14:01 | P.PN ---
Subjective Date of Service: 08/04/22 Chief Complaint: Abdominal pain Subjective: Other (Remains bed bound) Physical Examination - Vital Signs Temperature: 96.9 F Blood Pressure: 112/62 Pulse: 104 Respirations: 22 Pulse Ox (%): 97 - Physical Exam General: Other (Appears as her stated age) HEENT: Atraumatic, Normocephalic Neck: Supple Respiratory: Other (Symmetric chest expansion) Cardiovascular: No rubs, No murmurs Gastrointestinal: Soft and benign, No guarding Musculoskeletal: No clubbing Integumentary: No warmth Neurological: Normal tone External genitalia: Deferred Rectal: Deferred Assessment And Plan - Plan 1. Acute kidney injury multifactorial secondary to toxic acute tubular necrosis secondary to sepsis, r/o Interstitial nephritis secondary to nonsteroidal antiinflammatory drug use including ibuprofen. SCr improving. Received IV fluids. For TPN. 2. Hx of hypertension with the presence of low blood pressure and acute kidney injury. Hold BP meds. 3. Sepsis, SBO w/ necrosis. Per surgery service. On Abx. 4. Acute respiratory failure secondary to over volume. Intubated. Keep fluid balance net even per day. 5. HyperPO4. Improving, monitor. Physician Review: Patient Assessed, Agree with Above Assessment and Plan
[2022-08-04] MEDS ORDERED: VASOPRESSIN 80 UNIT in NA CHLORIDE 0.9% 250 ML IV PRN (17:00)
[2022-08-04] MEDS ORDERED: AA 5%/D20W/ELECTROLYTES-TPN 2,000 ML, Lipids 20% 250 ML with MULTIVITAMINS INJ 10 ML IV SCH ×3 (17:00)
[2022-08-04] MEDS ORDERED: INSULIN -REGULAR HUMAN 50 UNIT/0.5 ML ML SQ SCH (17:29)
[2022-08-04] MEDS ORDERED: VASOPRESSIN 80 UNIT in NA CHLORIDE 0.9% 250 ML IV SCH (18:00)
--- NOTE | 2022-08-04 19:56 | P.PN ---
Subjective Date of Service: 08/04/22 Chief Complaint: Abdominal pain POD # 2 from exploratory laparotomy, small bowel resection, drainage of multiple intra-abdominal abscesses, partial omentectomy, primary small bowel anastomosis, extensive adhesiolysis greater than 2 hours, primary abdominal closure. She was seen on rounds this morning. She is currently intubated and sedated. Family members at bedside. She remains tachycardic, but heart rates have improved to low 100s. Blood pressures have remained stable on norepinephrine and vasopressin drips. Review of Systems is unable to be obtained Physical Examination - Vital Signs Temperature: 98.9 F Blood Pressure: 126/61 Pulse: 104 Respirations: 26 Pulse Ox (%): 96 Assessment And Plan - Plan - Physical Exam General: Other (intubated, sedated) HEENT: Atraumatic, Sclerae nonicteric Neck: JVD not distended Respiratory: Clear to auscultation bilaterally, Normal air movement Cardiovascular: No gallops, No rubs, No murmurs, Other (tachycardic rate), Edema (trace BLE) Gastrointestinal: Hypoactive, Other (surgical site covered in clean surgical dressing) Musculoskeletal: No clubbing Integumentary: No rashes Neurological: Other (sedated) # Septic Shock likely secondary to Multiple Intra-Abdominal Abscesses and Possible Acute Pyelonephritis # Complex Ventral Hernia with Bowel Obstruction and Transverse Colon Perforation # Multiple Herniated Small Bowel Loops She met sepsis criteria based on HR > 90 bpm, RR > 20 breaths/min, and WBC > 12,000 and the suspected source is an intra-abdominal abscess vs pyelonephritis. Severe sepsis is suspected due to concern for tissue hypoperfusion/organ dysfunction based on acute respiratory failure requiring intubation, hypotension (SBP < 90, MAP < 65), creatinine >2.0 mg/dL (without ESRD), lactic acid > 2 mmol/L. Septic shock is suspected due to SBP < 90 mmHg , MAP <65. - Sepsis order set was initiated - Lactate trend = 2.4 -> 1.5 - Per Dr. Velasquez, obtain daily lactate levels for the purpose of monitoring for ischemia/hypoperfusion of bowel - Blood cultures drawn before antibiotics were given - Broad spectrum antibiotics started: Ertepenem - In regards to fluids: - 30 mL/kg of IV fluids was given based on patient's actual body weight - Despite fluids, she remained hypotensive - she has been started on norepinephrine and vasopression drips - Consulted General Surgery and spoke with Dr. Velasquez - recommendations appreciated - S/P Exploratory laparotomy, small bowel resection, partial omentectomy, intra-abdominal abscess drainage, primary small bowel anastomosis, extensive adhesiolysis greater than 2 hours, and primary abdominal closure (08/02/2022) # KDIGO Stage III Acute Kidney Injury # Left Renal Cyst (2 cm) Suspect acute tubular necrosis in the setting of septic shock. - Consulted Nephrology and spoke with Dr. Jasso - recommendations appreciated - Creatinine = 5.51 -> 4.90 -> 4.97 -> 3.47 - Urinalysis = 2+ blood, 250 leukocyte esterase, >50 WBCs, 20-50 bacteria, 2+ protein - Renal ultrasound = "No hydronephrosis. Small volume of right perinephric fluid. Left upper pole renal cyst." - Monitor creatinine and urine output - Renally dose medications # Left Upper Lobe Cavitary Lesion (3.5 cm) - Pulmonary Medicine consulted and spoke with Dr. 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
--- NOTE | 2022-08-04 20:12 | CON ---
Date of Consultation: 08/04/2022 Reason For Consultation: Short runs of ventricular tachycardia and bigeminies and PVCs. History Of Present Illness: This is a 57-year-old female, history of diabetes, hypertension, dyslipi demia, morbid obesity, who presented with an ischemic bowel and status post surgical intervention. I n the post surgery course in the ICU, she has been having a monomorphic ventricular tachycardia, shor t runs and she had few episodes only. Currently is in sinus rhythm without any PVCs or bigeminies. As per family, there is no history of cardiac disease. The patient is hypotensive, requiring pressor s and no other reported problems. Past Medical History: As outlined above in the HPI. Medications: Refer reconciliation sheet for detailed list. Allergies: PENICILLIN. Family History: No premature coronary artery disease, cancer. Social History: She does not smoke or drink. Does not use any drugs. Review of Systems: All systems reviewed are negative except for mentioned in HPI. Physical Examination: Vital Signs: Reviewed. Head and Neck: Pupils are equal, reactive to light. Intact eye movements. No JVD. No cervical lym phadenopathy. Neck is supple. Thyroid is not enlarged. Lungs: Clear to auscultation bilaterally. No rhonchi, rales, or crackles. No accessory muscle use. Heart: Regular rate and rhythm, sinus, and no extra sounds. Abdomen: Soft, nontender. Bowel sounds positive. No organomegaly. No masses or hernia. No rigidi ty or rebound. Extremities: No edema, clubbing, or cyanosis. Intact pulses. Skin: No rashes. Neurologic: Alert, awake, oriented x3. No acute events appreciated. Investigations: BUN 74, creatinine 3.47, and hemoglobin is 8.9, white blood cell count is 18.5. Assessment And Recommendation: 1.Short runs of ventricular tachycardia. This is a monomorphic ventricular tachycardia. This is li samantha not ischemic in nature. Please make sure that her potassium is above 4 and magnesium is above 2 and do one set of troponin today and obtain an echocardiogram. At this point, this also can be pres sors induced. I will monitor as she had only just very short runs and like limited number of episode s. If this becomes more repetitive and gets longer periods of ventricular tachycardia episodes, then I will recommend IV amiodarone load. Obtain an echo and troponin. Further recommendations accordin gly. 2.Perforated bowel, status post surgery and on antibiotics. 3.Hypertension. Blood pressure is on the low side due to sepsis and currently is on pressors. SR/MODL Voice ID: [id number] Report ID: [id number]
[2022-08-04] MEDS ORDERED: dexAMETHasone 4 MG/ML VIAL IV ONE (20:28)
[2022-08-04] MEDS: KCL 20 MEQ/100 mL IVPB 20 MEQ/100 ML BAG IV SCH ×2 (21:49→23:40)
[2022-08-05] MEDS: HEPARIN 5000 UNIT/ML 1 ML VIAL SQ SCH ×3 (02:10→17:52)
[2022-08-05] MEDS: INSULIN -REGULAR HUMAN 50 UNIT/0.5 ML ML SQ SCH ×4 (02:10→17:52)
[2022-08-05 05:14] LABS: Absolute Lymphocytes (CBC) 0.3 K/uL (0.7-4.9); Hematocrit 23.8 % (36.0-45.0); Lymphocytes % 1.4 % (15.3-44.8); MCV 93.1 fL (80-100); MPV 7.5 fL (7.6-11.3); RBC Red Blood Cell Count 2.55 M/uL (3.86-4.86)
[2022-08-05 05:32] LABS: Albumin 1.3 g/dL (3.4-5.0); Bilirubin Total 0.3 mg/dL (0.2-1.0); Magnesium 2.3 mg/dL (1.6-2.4); Phosphorus 3.9 mg/dL (2.5-4.9); Potassium 3.8 mmol/L (3.5-5.1); Protein, Total 5.1 g/dL (6.4-8.2)
[2022-08-05 05:49] LABS: Blood Morphology Comment NOT SEEN (NOT SEEN); Platelet Estimate ADEQ; White Blood Cell Scan OK (OK)
[2022-08-05 05:50] LABS: Toxic Granulation 1+
[2022-08-05] MEDS ORDERED: KCL 20 MEQ/100 mL IVPB 20 MEQ/100 ML BAG IV SCH (06:00)
--- NOTE | 2022-08-05 07:47 | RAD REPORT ---
EXAM DESCRIPTION: RAD - Chest Single View - 08/05/2022 7:08 am CLINICAL HISTORY: intubated on MV COMPARISON: Chest Single View dated 08/04/2022; Chest Single View dated 08/03/2022; Chest Single View da bhumi 08/02/2022; Chest Single View dated 08/02/2022 FINDINGS: Lines: Endotracheal tube above the keny in satisfactory position. Enteric tube overlying the stomach. Central line in similar position at the right atrium. Lungs: Linear opacity left lung. Widespread hazy opacities but which are increasing at the right lung base. . Pleural: Small effusions difficult to exclude Cardiac: Cardiomegaly Mediastinum: Within normal limits. Bones: No acute fractures. Other: Defibrillator pad now overlies the right hemithorax. IMPRESSION: 1. Support apparatus in stable positioning. 2. Bilateral interstitial airspace disease with worsening at the right lung base. This could reflect increasing pneumonia/pneumonitis. Suspect increasing edema as well.
[2022-08-05] MEDS: PANTOPRAZOLE 40 MG INJ IVP SCH (08:13)
[2022-08-05] MEDS ORDERED: FUROSEMIDE 40 MG/4 ML VIAL IV ONE (09:46)
--- NOTE | 2022-08-05 09:51 | P.PN ---
Subjective Date of Service: 08/05/22 Chief Complaint: Respiratory failure Subjective: Improving (Patient is improving doing well very alert responsive cooperative currently just on vasopressin Levophed has been weaned off) Review of Systems is unable to be obtained Physical Examination - Vital Signs Temperature: 97 F Blood Pressure: 126/68 Pulse: 95 Respirations: 28 Pulse Ox (%): 93 - Physical Exam General: Alert, Cooperative Respiratory: Clear to auscultation bilaterally, Diminished Cardiovascular: No edema, Regular rate/rhythm Assessment And Plan - Current Problems (Diagnosis) (1) Respiratory failure Current Visit: Yes Status: Acute Plan: Patient is currently on a ventilator doing well and function is improving currently off Levophed and vasopressin plan to wean her off from vasopressors White count is still mildly elevated may be from the steroids got 1 dose of Dec adron yesterday resolved level was around 50 but pressure is more stable plan to wean off and extubate discussed with Dr. Andrew Qualifiers: Chronicity: acute Physician Review: Patient Assessed, Agree with Above Assessment and Plan
[2022-08-05] MEDS ORDERED: POTASSIUM CL 40 MEQ in NA CHLORIDE 0.9% 500 ML IV SCH (10:00)
[2022-08-05] MEDS ORDERED: FUROSEMIDE 40 MG in NA CHLORIDE 0.9% 50 ML IV ONE (10:00)
--- NOTE | 2022-08-05 10:15 | PN ---
Date of Progress Note: 08/05/2022 Subjective: The patient was admitted with acute kidney injury, small bowel perforation status post small bowel resection. The patient had septic shock, started on pressor and antibiotic. Had acute kidney injury, multifactorial, secondary to nonsteroidal use, poor perfusion, ATN, and MCKAY inhibitor, blood pressure medication. The patient did not have any hyperkalemia or significant acidosis. The patient did not require any renal replacement therapy. The patient being over volume, managed with p.r.n. Lasix. The patient started weaning from pressor. Physical Examination: Vital Signs: When I saw the patient; blood pressure 126/68, pulse of 95, afebrile. The patient had good urine output of 1900, but still positive of 900. Chest: Crackles bilateral. Heart: S1, S2. Systolic murmur. Abdomen: Dressing with wrap tenderness. No guarding or rebound. Extremities: +3 edema. Neurologic: Awake, opens eyes, responds to verbal. No focality. Laboratory Data: Chest x-ray; cardiomegaly with congestion. WBC 21, H and H 8/23.8. Sodium 137, potassium 3.8, bicarb 24, BUN 77, creatinine 1.9, calcium 8.3, phosphorus 3.9, magnesium 2.3, albumin 1.3, corrected calcium is 10.3. Current Medications: The patient on include; 1. Ertapenem half a g every day. 2. Levophed. 3. Dexamethasone, received 1 dose. 4. Vasopressin. 5. TPN. Assessment And Plan: 1. Acute kidney injury, multifactorial, toxic ATN, poor perfusion, ATN, and nonsteroidal use, superimposed with blood pressure medication, over volume, still vent dependent. I am going to go ahead and give another dose of Lasix to establish better volume control. We will follow up with the patient in the afternoon. If the patient's blood pressure stays stable, maybe we need to give another dose in the evening and we will follow up. 2. Hypokalemia. I am going to replace the potassium to avoid any cardiac arrhythmia given the history of the patient of V-tach and PVCs. 3. Hypercalcemia. Continue diuresis. We will follow up. 4. Hypertension, currently hypotension, keep holding all blood pressure medications. 5. Rhabdomyolysis, on the recovery. 6. Small bowel perforation, status post small bowel resection. The patient antibiotic. I am going to adjust the ertapenem to 1 g given the recovery of the kidney function. 7. Respiratory failure, multifactorial, secondary to pneumonia/over volume. As I mentioned, we will continue antibiotic as above and we will start Lasix to establish better volume control and we will follow up. Time spent examining the patient [id number] reviewing data lab and radiology discussing the case with the patient placing order discussing the case with the sports team manager including nursing discussing the case with the hospitalist more than 35-minute PHILIP/FRANCESCO Voice ID: [id number] Report ID: [id number] JANIA
[2022-08-05] MEDS: ERTAPENEM NA 1 GM in NA CHLORIDE 0.9% 100 ML IVPB SCH (12:37)
[2022-08-05] MEDS: FENTANYL CITR 100 MCG/2 ML IV PRN ×2 (16:30→21:37)
[2022-08-05] MEDS: AA 5%/D20W/ELECTROLYTES-TPN 2,000 ML IV SCH (17:51)
--- NOTE | 2022-08-05 18:00 | P.PN ---
Subjective Date of Service: 08/05/22 Chief Complaint: Respiratory failure POD # 3 from exploratory laparotomy, small bowel resection, drainage of multiple intra-abdominal abscesses, partial omentectomy, primary small bowel anastomosis, extensive adhesiolysis greater than 2 hours, primary abdominal closure. She was seen on rounds this morning. She is currently intubated. Family members at bedside. She continues to improve daily and is following commands. She has been weaned off of norepinephrine and vasopressin drips. Working towards extubation once cleared by Pulmonary and Surgery services. Review of Systems is unable to be obtained Physical Examination - Vital Signs Temperature: 97.9 F Blood Pressure: 141/68 Pulse: 97 Respirations: 23 Pulse Ox (%): 93 Assessment And Plan - Plan - Physical Exam General: Alert, following commands, Other (intubated) HEENT: Atraumatic, Sclerae nonicteric Neck: JVD not distended Respiratory: Clear to auscultation bilaterally, Normal air movement Cardiovascular: No gallops, No rubs, No murmurs, Other (tachycardic rate), Edema (trace BLE) Gastrointestinal: Hypoactive, Other (surgical site covered in clean surgical dressing) Musculoskeletal: No clubbing Integumentary: No rashes Neurological: Alert, following commands, intubated # Septic Shock likely secondary to Multiple Intra-Abdominal Abscesses and Possible Acute Pyelonephritis # Complex Ventral Hernia with Bowel Obstruction and Transverse Colon Perforation # Multiple Herniated Small Bowel Loops She met sepsis criteria based on HR > 90 bpm, RR > 20 breaths/min, and WBC > 12,000 and the suspected source is an intra-abdominal abscess vs pyelonephritis. Severe sepsis is suspected due to concern for tissue hypoperfusion/organ dysfunction based on acute respiratory failure requiring intubation, hypotension (SBP < 90, MAP < 65), creatinine >2.0 mg/dL (without ESRD), lactic acid > 2 mmol/L. Septic shock is suspected due to SBP < 90 mmHg , MAP <65. - Sepsis order set was initiated - Lactate trend = 2.4 -> 1.5 - Per Dr. Velasquez, obtain daily lactate levels for the purpose of monitoring for ischemia/hypoperfusion of bowel - Blood cultures drawn before antibiotics were given - Broad spectrum antibiotics started: Ertepenem - In regards to fluids: - 30 mL/kg of IV fluids was given based on patient's actual body weight - Despite fluids, she remained hypotensive - she has been started on norepinephrine and vasopression drips - Vasopressors weaned off this morning - Consulted General Surgery and spoke with Dr. Velasquez - recommendations appreciated - S/P Exploratory laparotomy, small bowel resection, partial omentectomy, intra-abdominal abscess drainage, primary small bowel anastomosis, extensive adhesiolysis greater than 2 hours, and primary abdominal closure (08/02/2022) # KDIGO Stage III Acute Kidney Injury # Left Renal Cyst (2 cm) Suspect acute tubular necrosis in the setting of septic shock. - Consulted Nephrology and spoke with Dr. Jasso - recommendations appreciated - Creatinine = 5.51 -> 4.90 -> 4.97 -> 3.47 -> 1.96 - Urinalysis = 2+ blood, 250 leukocyte esterase, >50 WBCs, 20-50 bacteria, 2+ protein - Renal ultrasound = "No hydronephrosis. Small volume of right perinephric fluid. Left upper pole renal cyst." - Monitor creatinine and urine output - Renally dose medications # Left Upper Lobe Cavitary Lesion (3.5 cm) - Pulmonary Medicine consulted and spoke with Dr. 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
--- NOTE | 2022-08-05 22:40 | PN ---
Date of Progress Note: 08/05/2022 Subjective: Seen by bedside. Doing clinically the same. She is breathing comfortably on the vent, having some trigeminies, but there is no ventricular tachycardia anymore. Review of Systems: No ventricular tachycardia episodes. She is intubated. No diarrhea or skin rash. No fever. All ot her systems reviewed are negative. Physical Examination: Vital Signs: Temperature is 98.4, pulse is 103, breathing at 30, blood pressure is 126/59, saturatin g 94% on the ventilator. General: This is a middle-aged female, obese, in no apparent distress. Head and Neck: Pupils are reactive to light bilaterally. No cervical lymphadenopathy. Neck is supp le. Thyroid is not enlarged. Lungs: Bilateral air entry with rhonchi. No accessory muscle use or muscle retraction. Heart: Irregular. No extra sounds. Abdomen: Slightly distended. No rigidity or rebound. Extremities: Trace edema bilaterally. No clubbing, cyanosis. Intact pulses. Skin: No rash. Neurologic: Sedated on the vent. Lymph nodes: No cervical or axillary lymphadenopathy. Investigations: BUN 77, creatinine is 1.96. Assessment And Recommendations: 1.Short runs of monomorphic ventricular tachycardia and frequent premature ventricular contractions. She is off the pressors. She was septic which was likely the cause of cardiac rhythm abnormalities . At this point, I will monitor her clinically as she is hemodynamically stable. If further runs of ventricular tachycardia happen, then we might consider amiodarone drip, but at this point, I do not see any necessity to do it. I will plan to maintain potassium above 4 and magnesium above 2 and plan to introduce beta-heidi through the intravenous form to control her frequent premature ventricular contractions. 2.Acute renal failure. She is diuresing, now responding. Lasix was given to facilitate diuresis. Continue current management. 3.Small bowel perforation, status post surgical intervention, resection of small bowel, doing well c linically off the pressors. 4.Septic shock and she is off the pressors and doing better. SR/MODL Voice ID: [id number] Report ID: [id number]
[2022-08-06] MEDS: INSULIN -REGULAR HUMAN 50 UNIT/0.5 ML ML SQ SCH ×4 (00:17→18:06)
[2022-08-06] MEDS: HEPARIN 5000 UNIT/ML 1 ML VIAL SQ SCH ×3 (00:18→17:03)
[2022-08-06 05:30] LABS: Absolute Lymphocytes (CBC) 0.8 K/uL (0.7-4.9); Hematocrit 24.1 % (36.0-45.0); Lymphocytes % 4.7 % (15.3-44.8); MCV 93.8 fL (80-100); MPV 7.4 fL (7.6-11.3); RBC Red Blood Cell Count 2.57 M/uL (3.86-4.86)
[2022-08-06] MEDS: FENTANYL CITR 100 MCG/2 ML IV PRN (05:30)
[2022-08-06 05:51] LABS: Albumin 1.4 g/dL (3.4-5.0); Bilirubin Total 0.3 mg/dL (0.2-1.0); Magnesium 1.9 mg/dL (1.6-2.4); Phosphorus 2.3 mg/dL (2.5-4.9); Potassium 3.6 mmol/L (3.5-5.1); Protein, Total 5.2 g/dL (6.4-8.2)
[2022-08-06] MEDS: PANTOPRAZOLE 40 MG INJ IVP SCH (08:17)
[2022-08-06] MEDS ORDERED: FUROSEMIDE 40 MG/4 ML VIAL IV ONE (12:00)
[2022-08-06] MEDS: ERTAPENEM NA 1 GM in NA CHLORIDE 0.9% 100 ML IVPB SCH (12:33)
[2022-08-06] MEDS ORDERED: FUROSEMIDE 40 MG in NA CHLORIDE 0.9% 50 ML IV ONE (13:00)
--- NOTE | 2022-08-06 13:49 | PN ---
Date of Progress Note: 08/06/2022 Subjective: Patient was admitted with acute kidney injury secondary to poor perfusion, ATN, superimposed with blood pressure medication and nonsteroidal use. Patient also was admitted with perforated small bowel, status post small bowel resection. Patient tolerated the procedure. Patient did not require any renal replacement therapy. Had fluid resuscitation and pressor. Then we started aggressive diuresis. Patient stabilized. Patient extubated today. Physical Examination: Vital Signs: Blood pressure 132/72, pulse of 108. Patient had good urine output of yesterday of 3500, patient negative of 900. Chest: Decreased entry, bilateral base. Heart: S1, S2. Regular. Abdomen: Dressing. No guarding or rebound. Extremities: +2 edema. Neuro: Alert and oriented x3. No focal. Laboratory Data: WBC 17.9, H and H 8.1/24.1. Sodium 145, potassium 3.6, bicarb 27, BUN 69, creatinine 1.1, GFR of 59, calcium 8.5, phosphorus 2.3, magnesium 1.9, albumin 1.4, corrected calcium is 10.5. Current Medications: Patient on, it includes: 1. Ertapenem. 2. Heparin. 3. Lasix. 4. Pantoprazole. 5. Fentanyl. Assessment And Plan: 1. Acute kidney injury secondary to poor perfusion, acute tubular necrosis, recovered, resolved. Patient still overvolume. I am going to give another dose of Lasix today and we will continue to monitor the patient. 2. Rhabdomyolysis, resolved. 3. Hypokalemia. We will supplement. 4. Hypercalcemia, mostly secondary to the TPN, immobilization. Patient is going to be started on oral feeding. We will follow up. PTH within normal limit. Serum protein electrophoresis is still pending. 5. Anemia, possible component of dilutional. I am going to send for the anemia workup and we will follow up. 6. Respiratory failure secondary to overvolume. I am going to continue current antibiotic. We will diurese the patient. Patient was extubated today. We will follow up with the Pulmonary. 7. Perforated bowel, status post resection. We will follow up with the Surgery. 8. Septic shock, recovering. Follow up with Critical Care. Time spent examining the patient [id number] reviewing data lab and radiology discussing the case with the patient placing order discussing the case with the manufacturing team member including nursing discussing the case with the hospitalist more than 35-minute ANKUR Voice ID: [id number] Report ID: [id number] MTDVineet
--- NOTE | 2022-08-06 15:23 | P.PN ---
Subjective Date of Service: 08/06/22 Chief Complaint: Respiratory failure POD # 4 from exploratory laparotomy, small bowel resection, drainage of multiple intra-abdominal abscesses, partial omentectomy, primary small bowel anastomosis, extensive adhesiolysis greater than 2 hours, primary abdominal closure. She was seen on rounds this morning. She is currently intubated. Family members at bedside. She continues to improve daily and is following commands. She is breathing on her own. Plan to extubate today if cleared by Pulmonary and Surgery services. Review of Systems is unable to be obtained Physical Examination - Vital Signs Temperature: 98.0 F Blood Pressure: 145/78 Pulse: 98 Respirations: 32 Pulse Ox (%): 97 Assessment And Plan - Plan - Physical Exam General: Alert, following commands, Other (intubated) HEENT: Atraumatic, Sclerae nonicteric Neck: JVD not distended Respiratory: Clear to auscultation bilaterally, Normal air movement Cardiovascular: No gallops, No rubs, No murmurs, Other (tachycardic rate), Edema (trace BLE) Gastrointestinal: Hypoactive, Other (surgical site covered in clean surgical dressing) Musculoskeletal: No clubbing Integumentary: No rashes Neurological: Alert, following commands, intubated # Septic Shock likely secondary to Multiple Intra-Abdominal Abscesses and Possible Acute Pyelonephritis # Complex Ventral Hernia with Bowel Obstruction and Transverse Colon Perforation # Multiple Herniated Small Bowel Loops She met sepsis criteria based on HR > 90 bpm, RR > 20 breaths/min, and WBC > 12,000 and the suspected source is an intra-abdominal abscess vs pyelonephritis. Severe sepsis is suspected due to concern for tissue hypoperfusion/organ dysfunction based on acute respiratory failure requiring intubation, hypotension (SBP < 90, MAP < 65), creatinine >2.0 mg/dL (without ESRD), lactic acid > 2 mmol/L. Septic shock is suspected due to SBP < 90 mmHg , MAP <65. - Sepsis order set was initiated - Lactate trend = 2.4 -> 1.5 - Per Dr. Velasquez, obtain daily lactate levels for the purpose of monitoring for ischemia/hypoperfusion of bowel - Blood cultures drawn before antibiotics were given - Broad spectrum antibiotics started: Ertepenem - In regards to fluids: - 30 mL/kg of IV fluids was given based on patient's actual body weight - Despite fluids, she remained hypotensive - she has been started on norepinephrine and vasopression drips - Vasopressors weaned off on 08/05/2022 - Consulted General Surgery and spoke with Dr. Velasquez - recommendations appreciated - S/P Exploratory laparotomy, small bowel resection, partial omentectomy, intra-abdominal abscess drainage, primary small bowel anastomosis, extensive adhesiolysis greater than 2 hours, and primary abdominal closure (08/02/2022) - Extubate today if okay with Drs. Velasquez and Keyon # KDIGO Stage III Acute Kidney Injury # Left Renal Cyst (2 cm) Suspect acute tubular necrosis in the setting of septic shock. - Consulted Nephrology and spoke with Dr. Jasso - recommendations appreciated - Creatinine = 5.51 -> 4.90 -> 4.97 -> 3.47 -> 1.96 -> 1.10 - Urinalysis = 2+ blood, 250 leukocyte esterase, >50 WBCs, 20-50 bacteria, 2+ protein - Renal ultrasound = "No hydronephrosis. Small volume of right perinephric fluid. Left upper pole renal cyst." - Monitor creatinine and urine output - Renally dose medications # Left Upper Lobe Cavitary Lesion (3.5 cm) - Pulmonary Medicine consulted and spoke with Dr. 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
[2022-08-06] MEDS: AA 5%/D20W/ELECTROLYTES-TPN 2,000 ML IV SCH (17:03)
--- NOTE | 2022-08-06 20:37 | PN ---
Date of Progress Note: 08/06/2022 Subjective: Seen at bedside, doing clinically well. She was extubated successfully. Heart rate sta bilized. No further PVCs. Review of Systems: No chest pain, shortness of breath. No vomiting. No diarrhea. No skin rash or fever. All other sy stems reviewed are negative. Physical Examination: Vital Signs: Temperature is 98.0, pulse 98, breathing at 32, blood pressure is 145/78, saturating 97 % with oxygen. General: Pleasant middle-aged female, in no apparent distress. Head and Neck: Pupils are equal, reactive to light. Intact eye movements. No JVD. No cervical lym phadenopathy. Neck is supple. Thyroid is not enlarged. Lungs: Clear to auscultation bilaterally. No rhonchi, rales, or crackles. No accessory muscle use. Heart: Regular rate and rhythm. No extra sounds. Abdomen: Soft. Bowel sounds diminished. Extremities: No clubbing, cyanosis. Intact pulses. Skin: No rash. Neurologic: Alert, awake, oriented x3. No acute focal deficits appreciated. Investigations: BUN 69, creatinine 1.1. Assessment And Recommendation: 1.Frequent premature ventricular contractions and short runs of ventricular tachycardia, was monomor phic. This was likely to the acute sepsis condition that she was in. At this point, it has resolved . I recommend to initiate metoprolol 25 mg twice a day once feasible to take medications by mouth. 2.Elevated troponin. This is due to demand ischemia. Obtain an echocardiogram tomorrow to further assess, and this patient will need further ischemia evaluation which can be done as an outpatient when her overall condition is sta ble. SR/MODL Voice ID: [id number] Report ID: [id number]
[2022-08-07] MEDS: INSULIN -REGULAR HUMAN 50 UNIT/0.5 ML ML SQ SCH ×4 (00:23→18:20)
[2022-08-07] MEDS: HEPARIN 5000 UNIT/ML 1 ML VIAL SQ SCH ×3 (00:24→17:00)
[2022-08-07 05:05] LABS: Absolute Lymphocytes (CBC) 1.8 K/uL (0.7-4.9); Hematocrit 24.8 % (36.0-45.0); Lymphocytes % 9.8 % (15.3-44.8); MCV 93.7 fL (80-100); MPV 7.4 fL (7.6-11.3); RBC Red Blood Cell Count 2.65 M/uL (3.86-4.86)
[2022-08-07 05:29] LABS: Albumin 1.6 g/dL (3.4-5.0); Bilirubin Total 0.3 mg/dL (0.2-1.0); Magnesium 1.7 mg/dL (1.6-2.4); Phosphorus 2.7 mg/dL (2.5-4.9); Protein, Total 5.4 g/dL (6.4-8.2)
[2022-08-07] MEDS ORDERED: HYDROCODONE/APAP 5/325 MG TAB PO PRN (08:38)
[2022-08-07] MEDS: D5W 1,000 ML IV SCH ×3 (09:18→21:28)
[2022-08-07] MEDS: PANTOPRAZOLE 40 MG INJ IVP SCH (09:18)
[2022-08-07 10:59] LABS: Specific Gravity 1.015 (1.005-1.030); Urine Bacteria <20 /HPF (<20); Urine Bilirubin NEGATIVE (Negative); Urine Blood Trace (Negative); Urine Clarity Clear (Clear); Urine Color Light-Yellow (Yellow); Urine Glucose 4+ (Over) (Negative); Urine Mucus Slight /HPF (None Seen); Urine Protein NEGATIVE (Negative); Urine RBC <5 /HPF (None Seen); Urine Urobilinogen Normal (Normal)
[2022-08-07] MEDS: ERTAPENEM NA 1 GM in NA CHLORIDE 0.9% 100 ML IVPB SCH (12:56)
[2022-08-07] MEDS ORDERED: D5W 1,000 ML IV ONE (14:07)
[2022-08-07 15:23] LABS: Potassium 3.9 mmol/L (3.5-5.1)
--- NOTE | 2022-08-07 20:31 | PN ---
Date of Progress Note: 08/07/2022 Subjective: There is no chest pain, shortness of breath, orthopnea, or cough. No nausea, vomiting, or diarrhea. All other systems reviewed and they were negative. Physical Examination: Vital Signs: Reviewed. Head And Neck: Pupils are equal and reactive to light. Intact eye movements. No JVD. No cervical lymphadenopathy. Neck is supple. Thyroid is not enlarged. Lungs: Clear to auscultation bilaterally. No rhonchi, wheezing, or crackles. No accessory muscle u se. Heart: Regular rate and rhythm. No extra sounds. Abdomen: Soft. Bowel sounds positive. Extremities: No clubbing or cyanosis. Intact pulses. Skin: No rash. Neurologic: Alert, awake, and oriented x3. No acute focal deficits appreciated. Investigations: BUN 52, creatinine is 0.83, sodium is 151, and potassium is 4. Hemoglobin is 8.2. Assessment/recommendation: Frequent premature ventricular contractions, resolved. Monitor on teleme try and recommend to start metoprolol 25 mg by mouth twice a day when she is able to tolerate medicat ions by mouth. We will obtain an echocardiogram on her now and plan for further ischemia evaluation as an outpatient. SR/MODL Voice ID: [id number] Report ID: [id number]
--- NOTE | 2022-08-08 00:28 | PN ---
Date of Progress Note: 08/07/2022 Chief Complaint: Acute kidney injury and hypernatremia. Subjective: The patient has multiple medical problems. She was admitted to the hospital with acute kidney injury secondary to renal hypoperfusion and ATN secondary to blood pressure medication and non steroidal antiinflammatory medication. The patient was admitted with perforated small bowel and stat us post small bowel resection. The patient remains lethargic, although she denies vision changes or headache. She denies nausea or vomiting. Physical Examination: Lungs: Clear to auscultation bilaterally. Heart: S1, S2. Abdomen: Soft. Extremities: 2+ edema. Impression And Plan: 1.Acute kidney injury secondary to renal hypoperfusion and acute tubular necrosis. Renal function h as improved. There is ongoing hyperazotemia secondary to hypercatabolic state and Lasix. 2.Rhabdomyolysis, resolved. Monitor electrolytes and continue to replace hypophosphatemia. 3.Hypercalcemia secondary to TPN and immobilization. The patient will continue physical therapy as tolerated. PTH is within normal limits. 4.Anemia, possibly secondary to dilutional effect of fluid overload. Monitor hemoglobin level. EB/MODL Voice ID: [id number] Report ID: [id number]
[2022-08-08] MEDS: HEPARIN 5000 UNIT/ML 1 ML VIAL SQ SCH ×3 (00:37→16:27)
[2022-08-08] MEDS: INSULIN -REGULAR HUMAN 50 UNIT/0.5 ML ML SQ SCH ×4 (06:00→17:30)
[2022-08-08 07:11] LABS: Albumin 1.7 g/dL (3.4-5.0); Phosphorus 2.9 mg/dL (2.5-4.9); Potassium 3.8 mmol/L (3.5-5.1)
[2022-08-08 07:18] LABS: Magnesium 1.3 mg/dL (1.6-2.4)
[2022-08-08] MEDS: D5W 1,000 ML IV SCH (07:42)
[2022-08-08] MEDS: PANTOPRAZOLE 40 MG INJ IVP SCH (07:45)
[2022-08-08 07:53] LABS: Absolute Lymphocytes (CBC) 2.4 K/uL (0.7-4.9); Hematocrit 26.1 % (36.0-45.0); MCV 93.5 fL (80-100); MPV 7.1 fL (7.6-11.3); RBC Red Blood Cell Count 2.79 M/uL (3.86-4.86)
[2022-08-08] MEDS ORDERED: Magnesium Sulfate 2gm IVPB 2 G/50 ML BAG IV ONE ×2 (08:00→17:00)
[2022-08-08] MEDS ORDERED: POTASSIUM CL SA 10 MEQ TAB PO ONE (08:00)
[2022-08-08] MEDS ORDERED: FLUCONAZOLE 100 MG TAB PO ONE (10:00)
[2022-08-08] MEDS: FLUCONAZOLE 200mg IVPB 200 MG/100 ML BAG IV SCH (10:09)
[2022-08-08 11:00] LABS: Specific Gravity 1.017 (1.005-1.030); Urine Bacteria <20 /HPF (<20); Urine Bilirubin NEGATIVE (Negative); Urine Blood Negative (Negative); Urine Clarity Clear (Clear); Urine Color Light-Yellow (Yellow); Urine Glucose 3+ (Negative); Urine Protein NEGATIVE (Negative); Urine RBC <5 /HPF (None Seen); Urine Urobilinogen Normal (Normal); Urine pH 5.5 (5.0-7.0)
[2022-08-08 12:37] LABS: Platelet Estimate ADEQ
[2022-08-08 12:38] LABS: Blood Morphology Comment NOT SEEN (NOT SEEN)
[2022-08-08] MEDS ORDERED: ERTAPENEM NA 1 GM in NA CHLORIDE 0.9% 50 ML IVPB SCH (13:00)
[2022-08-08] MEDS ORDERED: FUROSEMIDE 40 MG/4 ML VIAL IV ONE (14:15)
--- NOTE | 2022-08-08 14:49 | PN ---
Date of Progress Note: 08/08/2022 Subjective: The patient was admitted with small bowel perforation, status post small bowel resection. Patient was started on oral liquid diet, started tolerating. Patient when she was admitted had acute kidney injury with GFR below 10. Patient was oliguric. Patient was diuresed, converted to nonoliguric gradually. Kidney function started being improved. Physical Examination: Vital Signs: When I saw the patient; blood pressure of 135/72, pulse of 92. Chest: Clear to auscultation. Heart: S1, S2. Systolic murmur. Abdomen: Soft, tender, dressing on the midline. No guarding. Extremities: +1 edema. Neuro: Alert. No focality. Laboratory Data: WBC 23.8, H and H 8.7/26.1. Sodium 143, potassium 3.8, bicarb 29, BUN 33, creatinine 0.5, calcium 8.2, phosphorus 2.9, magnesium 1.3, albumin 1.7, corrected calcium 10.2. Current Medications: The patient on, it include: 1. Ertapenem. 2. Fluconazole. 3. Zofran. 4. Pantoprazole. 5. D5. Assessment And Plan: 1. Acute kidney injury secondary to poor perfusion, acute tubular necrosis, recovered, resolved. Still has peripheral edema. We will continue p.r.n. Lasix. I am going to give her Lasix dose today and we will follow up. 2. Hypertension, controlled, optimal. Keep holding all blood pressure medications for the time being. 3. Hypernatremia. Continue D5. 4. Hypomagnesemia. We will supplement. 5. Hypocalcemia secondary to immobility. We will follow up. Continue hydration. Time spent examining the patient [id number] reviewing data lab and radiology discussing the case with the patient placing order discussing the case with the customer care team coach including nursing discussing the case with the hospitalist more than 35-minute PHILIP/FRANCESCO Voice ID: [id number] Report ID: [id number] JANIA
--- NOTE | 2022-08-08 16:13 | PN ---
Date of Progress Note: 08/08/2022 Subjective: Seen by bedside. Doing well. Review of Systems: No chest pain or shortness of breath, orthopnea, cough. No nausea, vomiting, diarrhea. She has lowe r extremity edema. All other systems reviewed and they were negative. Physical Examination: Vital Signs: Temperature is 97.4, pulse 92, breathing at 18, blood pressure 135/72, saturating 97% o n room air. General: Pleasant middle-aged female, in no apparent distress. Head and Neck: Pupils are equal, reactive to light. Intact eye movements. No JVD. No cervical lym phadenopathy. Neck is supple. Thyroid is not enlarged. Lungs: Clear to auscultation bilaterally. No rhonchi, wheezing, or crackles. No accessory muscle u se. Heart: Irregular. No extra sounds. Abdomen: Soft, nontender. Bowel sounds positive. No organomegaly. No masses or hernia. No rigidi ty or rebound. Extremities: 1 to 2+ pedal edema bilaterally. No clubbing or cyanosis. Intact pulses. Skin: No rash. Neurologic: Alert, awake, oriented x3. No acute focal deficits appreciated. Investigations: BUN is 33, creatinine 0.52, and hemoglobin is 8.7. Assessment And Recommendations: 1.Frequent PVC and ventricular tachycardia, likely due to the metabolic disturbance due to the acute sepsis. The patient is doing well now. Was started on metoprolol 25 mg twice a day. 2.Elevated troponin, normal ejection fraction on echo. We will plan for stress test as an outpatien t. /FRANCESCO Voice ID: [id number] Report ID: [id number]
[2022-08-08] MEDS: LACTOSE-REDUCED FOOD 330 ML LIQUID PO SCH (20:40)
[2022-08-09] MEDS: D5W 1,000 ML IV SCH (00:09)
[2022-08-09] MEDS: HEPARIN 5000 UNIT/ML 1 ML VIAL SQ SCH (00:09)
[2022-08-09 05:44] LABS: Magnesium 1.6 mg/dL (1.6-2.4); Phosphorus 3.3 mg/dL (2.5-4.9); Potassium 3.9 mmol/L (3.5-5.1)
[2022-08-09] MEDS: INSULIN -REGULAR HUMAN 50 UNIT/0.5 ML ML SQ SCH ×4 (06:00→17:39)
--- NOTE | 2022-08-09 06:50 | ECHO ---
HEIGHT: 5 ft 2 in WEIGHT: 247 lb 5 oz DATE OF STUDY: 08/08/[address]: Bandar Stanton 2-DIMENSIONAL: YES M.MODE: YES DOPPLER: YES COLOR FLOW: YES TDS: PORTABLE: YES DEFINITY: BUBBLE STUDY: DIAGNOSIS: SHORTNESS OF BREATH CARDIAC HISTORY: CATHERIZATION: SURGERY: PROSTHETIC VALVE: PACEMAKER: MEASUREMENTS (cm) DIASTOLIC (NORMALS) SYSTOLIC (NORMALS) IVSd 1.1 (0.6-1.2) LA Diam 3.1 (1.9-4.0) LVEF 52% LVIDd 4.4 (3.5-5.7) LVIDs 3.2 (2.0-3.5) %FS 26% LVPWd 1.2 (0.6-1.2) Ao Diam 3.2 (2.0-3.7) 2 DIMENSIONAL ASSESSMENT: RIGHT ATRIUM: NORMAL LEFT ATRIUM: NORMAL RIGHT VENTRICLE: NORMAL LEFT VENTRICLE: NORMAL TRICUSPID VALVE: NORMAL MITRAL VALVE: MILD MITRAL REGURGITATION PULMONIC VALVE: NORMAL AORTIC VALVE: THICKENED, NO AORTIC STENOSIS PERICARDIAL EFFUSION: NONE AORTIC ROOT: NORMAL LEFT VENTRICULAR WALL MOTION: NORMAL DOPPLER/COLOR FLOW: MILD MITRAL REGURGITATION, MILD AORTIC INSUFFICIENCY COMMENTS: 1. NORMAL LEFT VENTRICULAR EJECTION FRACTION 55-60% 2. MILD MITRAL REGURGITATION 3. THICKENED AORTIC VALVE, NO AORTIC STENOSIS 4. MILD AORTIC INSUFFICIENCY 5. DIASTOLIC DYSFUNCTION TECHNOLOGIST: JUANITA ARREAGA
[2022-08-09] MEDS ORDERED: METOPROLOL TAR 25 MG TAB PO ONE (07:30)
--- NOTE | 2022-08-09 08:16 | P.PN ---
Subjective Date of Service: 08/09/22 Chief Complaint: Respiratory failure Subjective: Improving (Ambulatory, tolerating full luquid diet, pain and tenderness almost completely resolved, + gas + BM no nausea, no bloating.) Physical Examination - Vital Signs Temperature: 97 F Blood Pressure: 133/71 Pulse: 92 Respirations: 19 Pulse Ox (%): 95 - Physical Exam General: Alert, In no apparent distress, Cooperative Respiratory: Clear to auscultation bilaterally, Normal air movement Cardiovascular: Regular rate/rhythm Gastrointestinal: Other (soft, mild appropriate TTP, ND, incision clean and dry, BERNARDINO serous, reinier in place.) Assessment And Plan - Plan 57 year old woman s/p Exploratory laparotomy, small bowel resection, drainage of multiple intra-abdominal abscesses, primary closure on 08-02-2022 for Small bowel obstruction with necrosis. Gen: Pain currently controlled with PO norco PRN, DC Fentanyl CVS: Remains hemodynamically stable for several days, off pressors for days. Pulm: continue incentive spirometry Q15 min GI: NGT out with extubation, tolerating diet well, + bowel function, BERNARDINO remains serous today, FEN: wean off IVF, electrolyte replacement protocol to continue ID: DC Invanz, patient is pen-allergic, continues to have leukocytosis of uncertain etiology will start levaquin, flagyl, DC invanz Renal: renal function returning to normal, fisher out Heme: HGB stable, leukocytosis may be reactive vs multifactorial, workup pending. Prophylaxis: DC heparin as patient is now ambulatory, SCDs in place, will DC protonix Placement : likely DC home soon Tubes / Line: central line in RIGHT IJ, BERNARDINO in place in LLQ. likely DC BERNARDINO in AM, DC central line when peripheral access secured PT/OT - ambulate with assist Endo:returing to normal Physician Review: Patient Assessed, Agree with Above Assessment and Plan
--- NOTE | 2022-08-09 08:27 | RAD REPORT ---
EXAM DESCRIPTION: RAD - Chest Single View - 08/09/2022 5:40 am CLINICAL HISTORY: pneumonia Chest pain. COMPARISON: Chest Single View dated 08/05/2022; Chest Single View dated 08/04/2022; Chest Single View da bhumi 08/03/2022; Chest Single View dated 08/02/2022 FINDINGS: Portable technique limits examination quality. The lungs are grossly clear. The heart is mildly enlarged in size. No displaced fractures.Right-sided venous catheter its tip in the right atrium. IMPRESSION: No acute intrathoracic process suspected.
[2022-08-09] MEDS: FLUCONAZOLE 200mg IVPB 200 MG/100 ML BAG IV SCH (08:58)
[2022-08-09] MEDS: levoFLOXacin 750 MG TAB PO SCH (08:59)
[2022-08-09] MEDS ORDERED: MAGNESIUM SULFATE 1 gm IVPB 1 GM/100 ML BAG IV ONE (09:00)
[2022-08-09] MEDS: LACTOSE-REDUCED FOOD 330 ML LIQUID PO SCH ×2 (09:00→21:00)
--- NOTE | 2022-08-09 10:09 | P.PN ---
Date of Service: 08/07/22 Subjective Clinically doing well. Patient denies any new complaints. Doing much better. Patient was extubated and is doing really well. Physical Examination - Vital Signs Reviewed - Physical Exam General: Alert, following commands; oriented to person and place and time Respiratory: Clear to auscultation bilaterally, Normal air movement Cardiovascular: No gallops, No rubs, No murmurs, Other (tachycardic rate), Edema (trace BLE) Gastrointestinal: Hypoactive, Other (surgical site covered in clean surgical dressing) Neurological: No focal deficits Assessment And Plan - Assessment 1. Septic Shock likely secondary to Multiple Intra-Abdominal Abscesses and Possible Acute Pyelonephritis 2. Complex Ventral Hernia with Bowel Obstruction and Transverse Colon Perforation 3. Multiple Herniated Small Bowel Loops 4. KDIGO Stage III Acute Kidney Injury 5. Left Renal Cyst (2 cm) 6. Left Upper Lobe Cavitary Lesion (3.5 cm) 7. Hyperglycemia in Type II Diabetes Mellitus 8. Hypertension 9. Dyslipidemia 10. Left Adrenal Mass (3 cm) 11. 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 Uterine Fibroid (2.5 cm) 13. Morbid Obesity - BMI 43.1 kg/m2 - Plan -IV hydration -IV antibiotics -further management per General surgery -pain controlled -monitor labs -strict blood pressure and blood sugar control
[2022-08-09] MEDS ORDERED: Magnesium Sulfate 2gm IVPB 2 G/50 ML BAG IV ONE (11:14)
--- NOTE | 2022-08-09 11:52 | PN ---
Date of Progress Note: 08/09/2022 Subjective: The patient was admitted with small bowel perforation, status post resection. The patie nt had acute kidney injury secondary to poor perfusion, ATN, superimposed with nonsteroidal use. The patient did not require any renal replacement therapy. The patient recovered very well. Physical Examination: Vital Signs: Blood pressure 133/71, pulse of 92, afebrile. Chest: Decreased entry bilateral base. Heart: S1, S2. Systolic murmur. Abdomen: Soft, mild tenderness. No guarding or rebound. Extremities: Plus edema. Neurologic: Alert. No focality. Laboratory Data: Chest x-ray; cardiomegaly, left-sided pleural effusion. Hemoglobin 8.7, WBC 23. S odium 138, potassium 3.9, bicarb 27, BUN 26, creatinine 0.5, calcium 8.1, phosphorus 3.3, magnesium 1 .6. Current Medications: The patient on include; 1.Fluconazole. 2.Levofloxacin. 3.Metronidazole. 4.Metoprolol 25. 5.Lasix yesterday. 6.D5 at 75 per hour. Assessment And Plan: 1.Acute kidney injury secondary to poor perfusion ATN/nonsteroidal use, recovered, resolved. Karina quijano looked to me on the normal volume side. I am going to discontinue IV fluid and we will continue to monitor. 2.Rhabdomyolysis, resolved. 3.Hypokalemia. We will monitor. We will supplement. 4.Hypomagnesemia. I am going to go ahead and supplement. 5.Perforated bowel, status post resection. We will follow up with Surgery and primary. 6.Hypertension, controlled, optimal. Continue current medications. 7.Tachycardia. Continue beta-heidi. 8.Hypernatremia, resolved. Discontinue D5. PHILIP/CITLALYL Voice ID: [id number] Report ID: [id number]
[2022-08-09] MEDS ORDERED: KCL 20 MEQ/100 mL IVPB 20 MEQ/100 ML BAG IV SCH (12:00)
[2022-08-09] MEDS: metroNIDAZOLE 500 MG TABLET PO SCH ×2 (12:13→17:07)
[2022-08-09 13:00] LABS: Absolute Lymphocytes (CBC) 2.2 K/uL (0.7-4.9); Hematocrit 27.1 % (36.0-45.0); Lymphocytes % 9.4 % (15.3-44.8); MCV 93.6 fL (80-100)
[2022-08-09] MEDS: METOPROLOL TAR 25 MG TAB PO SCH ×2 (14:00→17:07)
--- NOTE | 2022-08-09 16:22 | PN ---
Date of Progress Note: 08/09/2022 Subjective: Seen by bedside. Clinically doing well. She still has significant lower extremity chintan a, but no shortness of breath. Review of Systems: No chest pain, shortness of breath, orthopnea, cough. No nausea, vomiting, diarrhea. No abdominal p ain. No dysuria, polyuria, or urinary urgency. No skin rash, headache. All other systems reviewed and they were negative. Physical Examination: Vital Signs: Reviewed. Head and Neck: Pupils are equal, reactive to light. Intact eye movements. No JVD. No cervical lym phadenopathy. Neck is supple. Thyroid is not enlarged. Lungs: Clear to auscultation bilaterally. No rhonchi, wheezing, or crackles. No accessory muscle u se. Heart: Irregular. No extra sounds. Abdomen: Soft, nontender. Bowel sounds positive. No organomegaly. No masses or hernia. No rigidi ty or rebound. Extremities: No clubbing or cyanosis. 3+ pedal edema bilaterally. Neurologic: Alert, awake, oriented x3. No acute focal deficits appreciated. Lymph Nodes: No cervical or axillary lymphadenopathy. Investigations: Labs were reviewed. Assessment And Recommendations: 1.Frequent PVCs and short runs of ventricular tachycardia, monomorphic and this is likely due to shirin ctrolyte abnormalities. The patient did very well after extubation and she is hemodynamically stable and has no symptoms. Continue metoprolol 25 mg twice a day by mouth. 2.Fluid overload status. Recommend gentle diuresis, Lasix 40 mg at least once a day if the blood pr essure allows and low-sodium diet. 3.Elevated troponin. This patient needs an ischemia workup with stress test, which we will arrange for an outpatient. Cardiology will sign off from the case. Thank you for the consult. SR/MODL Voice ID: [id number] Report ID: [id number]
[2022-08-09] MEDS ORDERED: VANCOMYCIN 1.5 GM in NA CHLORIDE 0.9% 500 ML IVPB ONE (19:03)
[2022-08-09] MEDS ORDERED: VANCOMYCIN 1 GM/VIAL ONE (21:02)
[2022-08-09] MEDS ORDERED: NA CHLORIDE 0.9% 500 ML ONE (21:03)
[2022-08-09] MEDS ORDERED: VANCOMYCIN 500 MG/VIAL ONE (21:03)
[2022-08-09] MEDS: D5 0.45 NS 1,000 ML IV SCH (21:16)
[2022-08-10] MEDS: metroNIDAZOLE 500 MG TABLET PO SCH ×5 (00:19→23:09)
[2022-08-10 05:11] LABS: Absolute Lymphocytes (CBC) 2.5 K/uL (0.7-4.9); Hematocrit 27.1 % (36.0-45.0); Lymphocytes % 8.8 % (15.3-44.8); MCV 93.8 fL (80-100); MPV 8.1 fL (7.6-11.3); RBC Red Blood Cell Count 2.89 M/uL (3.86-4.86)
[2022-08-10 05:18] VITALS: BMI 45.1
[2022-08-10 05:38] LABS: Blood Morphology Comment NOTED (NOT SEEN); Platelet Estimate ADEQ; Polychromasia 1+
[2022-08-10] MEDS: INSULIN -REGULAR HUMAN 50 UNIT/0.5 ML ML SQ SCH ×5 (05:59→21:31)
[2022-08-10] MEDS: METOPROLOL TAR 25 MG TAB PO SCH ×2 (06:00→17:24)
[2022-08-10] MEDS: LACTOSE-REDUCED FOOD 330 ML LIQUID PO SCH ×2 (09:00→21:30)
[2022-08-10] MEDS: D5 0.45 NS 1,000 ML IV SCH ×2 (10:03→22:40)
[2022-08-10] MEDS: FLUCONAZOLE 200mg IVPB 200 MG/100 ML BAG IV SCH (10:04)
[2022-08-10] MEDS: levoFLOXacin 750 MG TAB PO SCH (10:04)
--- NOTE | 2022-08-10 12:31 | RAD REPORT ---
EXAM DESCRIPTION: CTChest Abdomen Pelvis W Cont - 08/10/2022 9:11 am CLINICAL HISTORY: follow up SB perforation COMPARISON: Chest Abd Pelvis Wo Con dated 08/02/2022 TECHNIQUE: CT of the chest, abdomen, and pelvis was performed with IV and oral contrast. All CT scans are performed using dose optimization technique as appropriate and may include automated exposure control or mA/KV adjustment according to patient size. FINDINGS: Thorax: Chest Wall: No abnormal mass Lungs: Scarring versus subsegmental atelectasis present in the left lower lobe. 6 seconds structure m edially in the left upper lobe is unchanged. Pleura: Trace bilateral pleural effusions. Addis/Mediastinum: No lymphadenopathy. Aorta/Pulmonary Arteries: Unremarkable Heart: Normal size. Abdomen/Pelvis: Liver: Hepatic steatosis. Biliary: No biliary ductal dilatation. Stomach: No significant focal abnormality. Duodenum: No significant focal abnormality. Pancreas: No significant abnormality. Spleen: No significant abnormality. Adrenal: Left adrenal nodule which is consistent with an adenoma is unchanged. There is also a left-s ided fat containing adrenal lesion consistent with a myelolipoma. Kidney/ureter: No hydronephrosis. Left upper pole renal cyst. Retroperitoneum: No retroperitoneal adenopathy. Vascular: No aneurysm. Bowel: Partial small bowel resection.. Distended small bowel with multiple air-fluid levels but no ev idence of a bowel obstruction. Contrast has not yet reached the colon to assess for a possible leak. Enteric contrast reaches the distal small bowel . Peritoneum: Increasing enhancing fluid present within several of the ventral hernias. For example, th ere is a ventral hernia just left of midline with a gas containing fluid collection measuring 6.7 x 4 .5 cm. 4 other pockets of enhancing fluid are noted. Small volume of free air is again noted which ma y be postsurgical. . Skin thickening in the ventral abdominal wall. Bladder: Grossly unremarkable. Reproductive: Calcified uterine fibroid. Bones: No acute fracture. Multilevel degenerative changes are present in the spine. Other: n/a IMPRESSION: Interval laparotomy. Decreased free air however there are now several enhancing fluid co llections concerning for abscesses. The collections are located within the ventral hernias. There are least 5 separate collections. No bowel obstruction. Trace pleural effusions with likely underlying atelectasis.
--- NOTE | 2022-08-10 18:40 | PN ---
Date of Progress Note: 08/10/2022 Subjective: The patient was admitted with acute kidney injury, perforated bowel. The patient had fl uid resuscitation, acute kidney injury, oliguric, converted to nonoliguric, started recovering. Did not require any renal replacement therapy. Physical Examination: Vital Signs: Blood pressure 107/54, pulse 106. Chest: Clear to auscultation. Heart: S1, S2. Regular. Abdomen: Soft, nontender. Dressing. Extremity: Trace edema. Neurologic: Alert. No focality. Laboratory Data: WBC 28.5, H and H 9/27.1. Sodium 140, potassium 4, bicarb 26, BUN 24, creatinine 0 .5, calcium 7.9. Current Medications: The patient on include fluconazole, Levaquin, metronidazole, vancomycin, metopr olol 25, lactulose, Zofran. Assessment And Plan: 1.Acute kidney injury, multifactorial, secondary to poor perfusion ATN, toxic ATN, superimposed with nonsteroidal use, recovered, resolved. Normal volume. We will continue to monitor. 2.Hypertension, controlled, optimal. 3.Atrial fibrillation as by Cardiology. Continue beta-heidi. 4.Perforated bowel. Continue current antibiotic. Follow up with Surgery. 5.Hypernatremia, resolved. PHILIP/FRANCESCO Voice ID: [id number] Report ID: [id number]
[2022-08-11] MEDS: D5 0.45 NS 1,000 ML IV SCH ×3 (03:32→21:57)
[2022-08-11 03:52] LABS: Absolute Lymphocytes (CBC) 2.2 K/uL (0.7-4.9); Hematocrit 26.5 % (36.0-45.0); Lymphocytes % 9.9 % (15.3-44.8); MCV 93.8 fL (80-100); MPV 7.2 fL (7.6-11.3); RBC Red Blood Cell Count 2.83 M/uL (3.86-4.86)
[2022-08-11 04:05] LABS: Magnesium 1.5 mg/dL (1.6-2.4); Potassium 3.7 mmol/L (3.5-5.1)
[2022-08-11] MEDS: metroNIDAZOLE 500 MG TABLET PO SCH ×4 (05:16→23:47)
[2022-08-11] MEDS: METOPROLOL TAR 25 MG TAB PO SCH ×2 (05:16→16:57)
[2022-08-11] MEDS ORDERED: Magnesium Sulfate 2gm IVPB 2 G/50 ML BAG IV ONE (07:00)
--- NOTE | 2022-08-11 07:17 | P.PN ---
Date of Service: 08/08/22 Subjective patient denies any new complaints. Clinical symptoms continued to improve. She is feeling much better and getting out of bed and ambulating. She is working well with physical therapy so will downgrade her to the general medical floor. Physical Examination - Vital Signs Reviewed - Physical Exam General: Alert, following commands; oriented to person and place and time Respiratory: Clear to auscultation bilaterally, Normal air movement Cardiovascular: No gallops, No rubs, No murmurs, Other (tachycardic rate), Edema (trace BLE) Gastrointestinal: Hypoactive, BERNARDINO drain in place; Other (surgical site covered in clean surgical dressing) Neurological: No focal deficits Assessment And Plan - Assessment 1. Septic Shock likely secondary to Multiple Intra-Abdominal Abscesses and Possible Acute Pyelonephritis 2. Complex Ventral Hernia with Bowel Obstruction and Transverse Colon Perforation 3. Multiple Herniated Small Bowel Loops 4. KDIGO Stage III Acute Kidney Injury 5. Left Renal Cyst (2 cm) 6. Left Upper Lobe Cavitary Lesion (3.5 cm) 7. Hyperglycemia in Type II Diabetes Mellitus 8. Hypertension 9. Dyslipidemia 10. Left Adrenal Mass (3 cm) 11. 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 Uterine Fibroid (2.5 cm) 13. Morbid Obesity - BMI 43.1 kg/m2 - Plan continue with plan of care as mentioned below. Advanced diet as tolerated. -IV hydration -IV antibiotics -further management per General surgery -pain controlled -monitor labs ; patient with leukocytosis. Continue monitoring white blood cell count. Panculture as well. -strict blood pressure and blood sugar control
--- NOTE | 2022-08-11 07:20 | P.PN ---
Date of Service: 08/09/22 Subjective White blood cell count continues to grow up but patient is clinically stable. One of the bottles of the blood cultures came back positive and will review this. Most likely contamination. Per go ahead and give 1 dose of vancomycin. Mental status is improved. She feels better and working well with physical therapy. Physical Examination - Vital Signs Reviewed - Physical Exam General: Alert, following commands; oriented to person and place and time Respiratory: Clear to auscultation bilaterally, Normal air movement Cardiovascular: No gallops, No rubs, No murmurs, Other (tachycardic rate), Edema (trace BLE) Gastrointestinal: Hypoactive, BERNARDINO drain in place; Other (surgical site covered in clean surgical dressing) Neurological: No focal deficits Assessment And Plan - Assessment 1. Septic Shock likely secondary to Multiple Intra-Abdominal Abscesses and Possible Acute Pyelonephritis 2. Complex Ventral Hernia with Bowel Obstruction and Transverse Colon Perforation 3. Multiple Herniated Small Bowel Loops 4. KDIGO Stage III Acute Kidney Injury 5. Left Renal Cyst (2 cm) 6. Left Upper Lobe Cavitary Lesion (3.5 cm) 7. Hyperglycemia in Type II Diabetes Mellitus 8. Hypertension 9. Dyslipidemia 10. Left Adrenal Mass (3 cm) 11. 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 Uterine Fibroid (2.5 cm) 13. Morbid Obesity - BMI 43.1 kg/m2 - Plan continue with plan of care as mentioned below. Advanced diet as tolerated. -IV hydration ; advancing diet as tolerated. If continues to tolerate diet will help lock IV. -IV antibiotics ; will give 1 dose of IV vancomycin. Awaiting blood culture results -further management per General surgery -pain controlled -monitor labs; white blood cell count worsen. Will discuss with surgery. May need repeat CT scan.. Continue monitoring white blood cell count. -strict blood pressure and blood sugar control
--- NOTE | 2022-08-11 07:22 | P.PN ---
Date of Service: 08/11/22 Subjective BERNARDINO drain placement today; change antibiotics; encourage OOB and ambulate Physical Examination - Vital Signs Reviewed - Physical Exam General: Alert, following commands; oriented to person and place and time Respiratory: Clear to auscultation bilaterally, Normal air movement Cardiovascular: No gallops, No rubs, No murmurs, Other (tachycardic rate), Edema (trace BLE) Gastrointestinal: Hypoactive, BERNARDINO drain in place; incision clean dry and intact Neurological: No focal deficits Assessment And Plan - Assessment 1. Septic Shock likely secondary to Multiple Intra-Abdominal Abscesses and Possible Acute Pyelonephritis 2. Complex Ventral Hernia with Bowel Obstruction and Transverse Colon Perforation; s/p exploratory Laparotomy, Small Bowel Resection, Partial omentectomy(08/02/2022) 3. Multiple Herniated Small Bowel Loops 4. KDIGO Stage III Acute Kidney Injury 5. Left Renal Cyst (2 cm) 6. Left Upper Lobe Cavitary Lesion (3.5 cm) 7. Hyperglycemia in Type II Diabetes Mellitus 8. Hypertension 9. Dyslipidemia 10. Left Adrenal Mass (3 cm) 11. 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 Uterine Fibroid (2.5 cm) 13. Morbid Obesity - BMI 43.1 kg/m2 - Plan Continue with plan of care as mentioned below. Advanced diet as tolerated. -IV hydration ; advancing diet as tolerated. If continues to tolerate diet will help lock IV. -IV antibiotics ; will give 1 dose of IV vancomycin. Awaiting blood culture results -interventional radiology for CT-guided abscess drainage -pain controlled -monitor labs; white blood cell count worsen. Will discuss with surgery. repeat CT scan revealed intra-abdominal abscesses. -strict blood pressure and blood sugar control
--- NOTE | 2022-08-11 07:22 | P.PN ---
Date of Service: 08/10/[address] scan repeated. Patient with abdominal abscess. Spoke with Interventional Radiology and patient to have intraabdominal abscess drained. Physical Examination - Vital Signs Reviewed - Physical Exam General: Alert, following commands; oriented to person and place and time Respiratory: Clear to auscultation bilaterally, Normal air movement Cardiovascular: No gallops, No rubs, No murmurs, Other (tachycardic rate), Edema (trace BLE) Gastrointestinal: Hypoactive, BERNARDINO drain removed; incision clean dry and intact Neurological: No focal deficits Assessment And Plan - Assessment 1. Septic Shock likely secondary to Multiple Intra-Abdominal Abscesses and Possible Acute Pyelonephritis 2. Complex Ventral Hernia with Bowel Obstruction and Transverse Colon Perforation 3. Multiple Herniated Small Bowel Loops 4. KDIGO Stage III Acute Kidney Injury 5. Left Renal Cyst (2 cm) 6. Left Upper Lobe Cavitary Lesion (3.5 cm) 7. Hyperglycemia in Type II Diabetes Mellitus 8. Hypertension 9. Dyslipidemia 10. Left Adrenal Mass (3 cm) 11. 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 Uterine Fibroid (2.5 cm) 13. Morbid Obesity - BMI 43.1 kg/m2 - Plan continue with plan of care as mentioned below. Advanced diet as tolerated. -IV hydration ; advancing diet as tolerated. If continues to tolerate diet will help lock IV. -IV antibiotics ; will give 1 dose of IV vancomycin. Awaiting blood culture r esults -interventional radiology for CT-guided abscess drainage -pain controlled -monitor labs; white blood cell count worsen. Will discuss with surgery. repeat CT scan revealed intra-abdominal abscesses. -strict blood pressure and blood sugar control
[2022-08-11] MEDS: INSULIN -REGULAR HUMAN 50 UNIT/0.5 ML ML SQ SCH ×4 (07:30→21:00)
[2022-08-11] MEDS: levoFLOXacin 750 MG TAB PO SCH (07:44)
[2022-08-11] MEDS: LACTOSE-REDUCED FOOD 330 ML LIQUID PO SCH ×2 (07:44→21:15)
[2022-08-11] MEDS ORDERED: KCL 20 MEQ/100 mL IVPB 20 MEQ/100 ML BAG IV SCH (09:00)
[2022-08-11] MEDS: FLUCONAZOLE 200mg IVPB 200 MG/100 ML BAG IV SCH (10:08)
--- NOTE | 2022-08-11 12:01 | RAD REPORT ---
EXAM DESCRIPTION: US - Puncture Aspiration Of Abscess - 08/11/2022 9:35 am CLINICAL HISTORY: Abdominal Abscess Drainage COMPARISON: Puncture Aspiration Of Abcess dated 08/11/2022 TECHNIQUE: Informed consent was obtained. The patient was brought to the ultrasound suite and placed in the supine position. The patient was prepped and draped in sterile fashion. Using ultrasound, a t otal of five subcutaneous fluid collections were identified and which corresponded with the collectio ns on CT. Attention was first paid to the larger collection in the left lower abdomen. Under continuous ultraso und guidance, an 8.2 Fr pigtail drainage catheter was advanced under continuous ultrasound guidance i nto the collection. The catheter was deployed. Approximately 40 cc of serosanguinous fluid was aspira bhumi. The catheter was attached to a BERNARDINO drain and affixed to the skin. A sample was sent to the lab fo r gram stain and culture. The second collection in the left upper abdomen was contiguous with the collection noted above and wa s also drained. Attention was then paid to the smaller collection in the right abdomen located more superiorly. Under ultrasound guidance, this was punctured with an 18 gauge needle and and approximately 5-10 cc of flu id was aspirated. The collection was completely aspirated. Attention was then paid to the more middle fluid collection location in the right abdominal wall. Und er continuous ultrasound guidance, an 8.2 Fr pigtail drainage catheter was advanced under continuous ultrasound guidance into the collection. The catheter was deployed. Approximately 40 cc of serosangui nous fluid was aspirated. The catheter was attached to a BERNARDINO drain and affixed to the skin. Attention was then paid to the more lower fluid collection location in the right abdominal wall. Unde r continuous ultrasound guidance, an 10.2 Fr pigtail drainage catheter was advanced under continuous ultrasound guidance into the collection. The catheter was deployed. Approximately 10 cc of serosangui nous fluid was aspirated. The catheter was attached to a BERNARDINO drain and affixed to the skin. IMPRESSION: 1. Technically successful ultrasound-guided placement of 3 drainage catheters into 3 sep arate abdominal wall fluid collections. 2. Successful aspiration of a fourth collection.
--- NOTE | 2022-08-11 12:03 | RAD REPORT ---
EXAM DESCRIPTION: US - Puncture Aspiration Of Abscess - 08/11/2022 9:35 am EXAM DESCRIPTION: US - Puncture Aspiration Of Abscess - 08/11/2022 9:35 am CLINICAL HISTORY: N CLINICAL HISTORY: Abdominal abscessDrainage COMPARISON: Puncture Aspiration Of Abscess dated 08/11/2022 TECHNIQUE: Informed consent was obtained. The patient was brought to the ultrasound suite and placed in the supine position. The patient was prepped and draped in sterile fashion. Using ultrasound, a t otal of five subcutaneous fluid collections were identified and which corresponded with the collectio ns on CT. Attention was first paid to the larger collection in the left lower abdomen. Under continuous ultraso und guidance, an 8.2 Fr pigtail drainage catheter was advanced under continuous ultrasound guidance i nto the collection. The catheter was deployed. Approximately 40 cc of serosanguinous fluid was aspira bhumi. The catheter was attached to a BERNARDINO drain and affixed to the skin. A sample was sent to the lab fo r gram stain and culture. The second collection in the left upper abdomen was contiguous with the collection noted above and wa s also drained. Attention was then paid to the smaller collection in the right abdomen located more superiorly. Under ultrasound guidance, this was punctured with an 18 gauge needle and and proximally 5-10 cc of fluid was aspirated. The collection was completely aspirated. Attention was then paid to the more middle fluid collection location in the right abdominal wall. Und er continuous ultrasound guidance, an 8.2 Fr pigtail drainage catheter was advanced under continuous ultrasound guidance into the collection. The catheter was deployed. Approximately 40 cc of serosangui nous fluid was aspirated. The catheter was attached to a BERNARDINO drain and affixed to the skin. Attention was then paid to the more lower fluid collection location in the right abdominal wall. Unde r continuous ultrasound guidance, an 10.2 Fr pigtail drainage catheter was advanced under continuous ultrasound guidance into the collection. The catheter was deployed. Approximately 10 cc of serosangui nous fluid was aspirated. The catheter was attached to a BERNARDINO drain and affixed to the skin. IMPRESSION: 1. Technically successful ultrasound-guided placement of 3 drainage catheters into 3 sep arate abdominal wall fluid collections. 2. Successful aspiration of a fourth collection.
--- NOTE | 2022-08-11 13:39 | RAD REPORT ---
EXAM DESCRIPTION: RAD - Chest Single View - 08/11/2022 1:30 pm CLINICAL HISTORY: Device placement PICC line placement IMPRESSION: Left PICC line with its tip in the distal superior vena cava Right PICC line with its tip 2 centimeters into the right atrium
--- NOTE | 2022-08-11 14:50 | P.PN ---
Subjective Date of Service: 08/11/22 Chief Complaint: Respiratory failure Subjective: No new changes Physical Examination - Vital Signs Temperature: 97.2 F Blood Pressure: 134/60 Pulse: 97 Respirations: 16 Pulse Ox (%): 97 - Physical Exam General: Other (appears as her stated age) HEENT: Atraumatic, Normocephalic Neck: Supple, JVD not distended Respiratory: Other (symmetric chest expansion) Cardiovascular: No rubs, No murmurs Gastrointestinal: Soft and benign Musculoskeletal: No clubbing Integumentary: No warmth Neurological: Normal tone Urinary: Other (No bladder distention) External genitalia: Deferred Rectal: Deferred Assessment And Plan - Plan 1. Acute kidney injury multifactorial secondary to toxic acute tubular necrosis secondary to sepsis, r/o Interstitial nephritis secondary to nonsteroidal antiinflammatory drug use including ibuprofen. PANDA resolved. Monitor renal panel. 2. Htn. BP controlle, monitor. 3. Sepsis, SBO w/ necrosis. Per surgery service. Received abx. 4. Acute respiratory failure secondary to over volume. Improved. Per other services. 5. HypoMg. Mg repletion prn. 6. Afib. Per Cardiology. Physician Review: Patient Assessed, Agree with Above Assessment and Plan
[2022-08-11] MEDS ORDERED: MAGNESIUM SULFATE 1 gm IVPB 1 GM/100 ML BAG IV ONE (15:13)
[2022-08-12 04:41] LABS: Absolute Lymphocytes (CBC) 1.8 K/uL (0.7-4.9); Hematocrit 25.1 % (36.0-45.0); Lymphocytes % 9.1 % (15.3-44.8); MCV 94.8 fL (80-100); MPV 7.4 fL (7.6-11.3); RBC Red Blood Cell Count 2.65 M/uL (3.86-4.86)
[2022-08-12 04:54] LABS: Potassium 3.8 mmol/L (3.5-5.1)
[2022-08-12] MEDS ORDERED: MAGNESIUM SULFATE 1 gm IVPB 1 GM/100 ML BAG IV ONE (06:00)
[2022-08-12] MEDS: metroNIDAZOLE 500 MG TABLET PO SCH ×4 (06:01→23:49)
[2022-08-12] MEDS: METOPROLOL TAR 25 MG TAB PO SCH ×2 (06:01→17:56)
[2022-08-12] MEDS: INSULIN -REGULAR HUMAN 50 UNIT/0.5 ML ML SQ SCH ×4 (07:30→20:47)
[2022-08-12] MEDS ORDERED: POTASSIUM CL SA 10 MEQ TAB PO SCH (09:00)
[2022-08-12] MEDS: LACTOSE-REDUCED FOOD 330 ML LIQUID PO SCH ×2 (09:00→20:47)
[2022-08-12] MEDS: levoFLOXacin 750 MG TAB PO SCH (09:42)
[2022-08-12] MEDS: FLUCONAZOLE 200mg IVPB 200 MG/100 ML BAG IV SCH (09:43)
--- NOTE | 2022-08-12 11:19 | P.PN ---
Subjective Date of Service: 08/12/22 Chief Complaint: Intra-abdominal abscess Subjective: Improving (Patient is improving doing well feeling better tolerating a little little soft diet) Review of Systems Unremarkable General: Weakness Physical Examination - Vital Signs Temperature: 97.2 F Blood Pressure: 134/60 Pulse: 97 Respirations: 16 Pulse Ox (%): 97 - Physical Exam General: Alert, In no apparent distress, Oriented x3 Respiratory: Clear to auscultation bilaterally Cardiovascular: No edema, Regular rate/rhythm Assessment And Plan - Current Problems (Diagnosis) (1) Intra-abdominal abscess Current Visit: Yes Status: Acute Plan: Patient was initially admitted with respiratory failure shock that resolved recently had abdominal abscesses percutaneously drained patient's white count is declining cussed with Dr. Andrew recommend IV meropenem for at least 2 weeks via PICC line DC metronidazole vital signs oxygenation stable patient is on IV fluids hemodynamically stable renal function is now normal Physician Review: Patient Assessed, Agree with Above Assessment and Plan
--- NOTE | 2022-08-12 11:40 | P.PN ---
Subjective Date of Service: 08/12/22 Chief Complaint: Intra-abdominal abscess Subjective: Improving (tolerating normal diet, normal bowel function, no abdominal pain, she had Percutaneous drains x 3 placed yesterday, no new issues. ambulatory) Physical Examination - Vital Signs Temperature: 97.2 F Blood Pressure: 134/60 Pulse: 97 Respirations: 16 Pulse Ox (%): 97 - Physical Exam General: Alert, In no apparent distress, Cooperative Respiratory: Clear to auscultation bilaterally, Normal air movement Cardiovascular: Regular rate/rhythm Gastrointestinal: Soft and benign, Non-distended, No ascites, No tenderness, No masses, No rebound, No guarding, Other (hernias remain present, no dehiscence, 3 perc drains all serous with BERNARDINO bulbs) Assessment And Plan - Plan 57 year old woman s/p Exploratory laparotomy, small bowel resection, drainage of multiple intra-abdominal abscesses, primary closure on 08-02-2022 for Small bowel obstruction with necrosis. Gen: Pain currently controlled with PO norco PRN, CVS: Remains hemodynamically stable for several days, off pressors for days. Pulm: continue incentive spirometry Q15 min GI: NGT out with extubation, tolerating diet well, + bowel function,surgical BERNARDINO removed, percutaneous placed drains x [address] with serous output FEN: wean off IVF, electrolyte replacement protocol to continue ID: DC current antibiotics, start merropenem via PICC line, central line removed Renal: renal function returning to normal, fisher out Heme: HGB stable, leukocytosis may be reactive and due to intra-abdominal collections, will continue to monitor Prophylaxis: DC heparin as patient is now ambulatory, SCDs in place, will DC protonix Placement : likely DC home soon Tubes / Line: Perc drains in place x 3 in abdomen. PICC line LEFT arm PT/OT - ambulate with assist Endo:returing to normal Physician Review: Patient Assessed, Agree with Above Assessment and Plan
[2022-08-12] MEDS: D5 0.45 NS 1,000 ML IV SCH (12:37)
--- NOTE | 2022-08-12 16:04 | P.PN ---
Subjective Date of Service: 08/12/22 Chief Complaint: Intra-abdominal abscess Subjective Pt with Sepsis, bowel obstruction, cr 5.4 on admission today No overnight events WBC trending down edema on exam , will dc iVF Physical exam General: AAOx3, NAD, obese HEENT PERRLA, moist mucose membrane neck: supple, no elevated JVD CHEST; CTAB, no wheezes or rales HEART : RRR. Normal S1,2 no murmur or rub Abd: soft, Nt Ext: edema Skin : No rash A/p 1. Acute kidney injury multifactorial secondary to toxic acute tubular necrosis secondary to sepsis, r/o Interstitial nephritis secondary to nonsteroidal antiinflammatory drug use including ibuprofen. PANDA resolved. Monitor renal panel., will dc IVF 2. Htn. BP controlle, monitor. 3. Sepsis, SBO w/ necrosis. Per surgery service. Received abx. 4. Acute respiratory failure secondary to over volume. Improved. Per other services. 5. HypoMg. Mg repletion prn. 6. Afib. Per Cardiology. Physical Examination - Vital Signs Temperature: 97.8 F Blood Pressure: 109/54 Pulse: 97 Respirations: 18 Pulse Ox (%): 99 Assessment And Plan Physician Review: Patient Assessed, Agree with Above Assessment and Plan
[2022-08-12] MEDS: Meropenem 1,000 MG in NA CHLORIDE 0.9% 100 ML IV SCH (20:46)
[2022-08-13 04:38] LABS: Hematocrit 24.1 % (36.0-45.0); Lymphocytes % 11.4 % (15.3-44.8); MCV 94.8 fL (80-100); MPV 7.2 fL (7.6-11.3); RBC Red Blood Cell Count 2.54 M/uL (3.86-4.86)
[2022-08-13 04:54] LABS: Magnesium 1.6 mg/dL (1.6-2.4); Potassium 3.8 mmol/L (3.5-5.1)
[2022-08-13] MEDS ORDERED: POTASSIUM CL SA 10 MEQ TAB PO ONE (06:00)
[2022-08-13] MEDS ORDERED: MAGNESIUM SULFATE 1 gm IVPB 1 GM/100 ML BAG IV ONE (06:00)
[2022-08-13] MEDS: METOPROLOL TAR 25 MG TAB PO SCH ×2 (06:01→17:15)
[2022-08-13] MEDS: metroNIDAZOLE 500 MG TABLET PO SCH ×4 (06:02→23:40)
[2022-08-13] MEDS: INSULIN -REGULAR HUMAN 50 UNIT/0.5 ML ML SQ SCH ×4 (07:30→20:21)
[2022-08-13] MEDS: FLUCONAZOLE 100 MG TAB PO SCH (08:17)
[2022-08-13] MEDS: LACTOSE-REDUCED FOOD 330 ML LIQUID PO SCH ×2 (08:17→20:20)
[2022-08-13] MEDS: Meropenem 1,000 MG in NA CHLORIDE 0.9% 100 ML IV SCH ×2 (08:17→20:22)
--- NOTE | 2022-08-13 13:41 | P.PN ---
Subjective Date of Service: 08/13/22 Chief Complaint: Intra-abdominal abscess Subjective Pt with Sepsis, bowel obstruction, cr 5.4 on admission today No overnight events WBC trending down cont to hold IVF Physical exam General: AAOx3, NAD, obese HEENT PERRLA, moist mucose membrane neck: supple, no elevated JVD CHEST; CTAB, no wheezes or rales HEART : RRR. Normal S1,2 no murmur or rub Abd: soft, Nt Ext: edema Skin : No rash A/p 1. Acute kidney injury multifactorial secondary to toxic acute tubular necrosis secondary to sepsis, r/o Interstitial nephritis secondary to nonsteroidal antiinflammatory drug use including ibuprofen. PANDA resolved. Monitor renal panel., off IVF 2. Htn. BP controlle, monitor. 3. Sepsis, SBO w/ necrosis. Per surgery service. Received abx. 4. Acute respiratory failure secondary to over volume. Improved. Per other services. 5. HypoMg. Mg repletion prn. 6. Afib. Per Cardiology. Physical Examination - Vital Signs Temperature: 97.9 F Blood Pressure: 98/59 Pulse: 101 Respirations: 19 Pulse Ox (%): 96 Assessment And Plan Physician Review: Patient Assessed, Agree with Above Assessment and Plan
--- NOTE | 2022-08-13 17:50 | P.PN ---
Date of Service: 08/12/22 Subjective Patient's BERNARDINO drainage decreased today. Significant improvement. Continue with IV antibiotic therapy. Remove BERNARDINO drains once output is minimal. Physical Examination - Vital Signs Reviewed - Physical Exam General: Alert, following commands; oriented to person and place and time Respiratory: Clear to auscultation bilaterally, Normal air movement Cardiovascular: No gallops, No rubs, No murmurs, Other (tachycardic rate), Edema (trace BLE) Gastrointestinal: Hypoactive, BERNARDINO drain x 3; incision clean dry and intact Neurological: No focal deficits Assessment And Plan - Assessment 1. Septic Shock likely secondary to Multiple Intra-Abdominal Abscesses and Possible Acute Pyelonephritis 2. Complex Ventral Hernia with Bowel Obstruction and Transverse Colon Perforation 3. Multiple Herniated Small Bowel Loops 4. KDIGO Stage III Acute Kidney Injury 5. Left Renal Cyst (2 cm) 6. Left Upper Lobe Cavitary Lesion (3.5 cm) 7. Hyperglycemia in Type II Diabetes Mellitus 8. Hypertension 9. Dyslipidemia 10. Left Adrenal Mass (3 cm) 11. 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 Uterine Fibroid (2.5 cm) 13. Morbid Obesity - BMI 43.1 kg/m2 - Plan continue with plan of care as mentioned below. Advanced diet as tolerated. -gentle IV hydration ; advancing diet as tolerated. -IV antibiotics ; meropenem; continue IV Invanz at discharge. May consult infectious disease -interventional radiology for CT-guided abscess drainage Dr. Mcgee. We will continue with BERNARDINO drainage x3. -pain controlled -monitor labs; white blood cell count improved. Will discuss with surgery. -strict blood pressure and blood sugar control
--- NOTE | 2022-08-13 18:03 | P.PN ---
Date of Service: 08/13/22 Subjective Patient with prolonged hospitalization. Patient is a 57-year-old female who came to the hospital with history of ventral hernias. At this junction she had transverse colon perforation. She was taken to the operating room August 02, 2022 and had a exploratory laparotomy with small bowel resection and partial omentectomy. Patient has been slow to recover. She was extubated August 07. She has done well postextubation. She has been participating with physical therapy and she has been building her strength. We are working on discharging slowly afterwards; however, her white blood cell count was increasing. Repeat CT imaging after pancultures were negative. CT imaging revealed multiple intra-abdominal infections/abscesses. Patient had CT-guided catheter placement into the abscesses on Sunday. Patient has had significant drainage on BERNARDINO drain labeled #1 which is on the left side of the abdomen. This has decreased over the last 24 hours. Patient with minimal drainage in all 3 BERNARDINO drains at this time. We may be able to remove them tomorrow. White count is coming down. Arranging for outpatient IV antibiotics. PICC line has been placed. Pulmonary recommended meropenem. Will discuss with infectious disease regarding discharge planning. At this time anticipate discharge over the next 48 hours. Patient will continue working with physical therapy. We will probably remove BERNARDINO drains are low. And we will arrange for outpatient IV antibiotics once we get further recommendations from infectious disease. Right now we are arranging for Invanz IVPB at discharge. Patient is clinically doing well and she is anxious to go home. Physical Examination - Vital Signs Reviewed - Physical Exam General: Alert, following commands; oriented to person and place and time Respiratory: Clear to auscultation bilaterally, Normal air movement Cardiovascular: No gallops, No rubs, No murmurs, Other (tachycardic rate), Edema (trace BLE) Gastrointestinal: Hypoactive, BERNARDINO drain in place(x3); incision clean dry and intact Neurological: No focal deficits Assessment And Plan - Assessment 1. Septic Shock likely secondary to Multiple Intra-Abdominal Abscesses and Possible Acute Pyelonephritis 2. Complex Ventral Hernia with Bowel Obstruction and Transverse Colon Perforation; s/p exploratory Laparotomy, Small Bowel Resection, Partial omentectomy(08/02/2022) 3. Multiple Herniated Small Bowel Loops 4. KDIGO Stage III Acute Kidney Injury 5. Left Renal Cyst (2 cm) 6. Left Upper Lobe Cavitary Lesion (3.5 cm) 7. Hyperglycemia in Type II Diabetes Mellitus 8. Hypertension 9. Dyslipidemia 10. Left Adrenal Mass (3 cm) 11. 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 Uterine Fibroid (2.5 cm) 13. Morbid Obesity - BMI 43.1 kg/m2 - Plan Continue with plan of care as mentioned below. Advanced diet as tolerated. -IV antibiotics -Wound care -Remove BERNARDINO drain in 24-48hrs -pain controlled -monitor labs; white blood cell count improved. -strict blood pressure and blood sugar control -arrange for outpt IV abx - arrangements -ID consult for further recc re: IV abx; currently plan to DC on Invanz pending final cx from drains
[2022-08-14] MEDS: METOPROLOL TAR 25 MG TAB PO SCH ×2 (05:28→17:14)
[2022-08-14] MEDS: metroNIDAZOLE 500 MG TABLET PO SCH ×3 (05:28→17:00)
[2022-08-14 06:12] LABS: Absolute Lymphocytes (CBC) 2.1 K/uL (0.7-4.9); Lymphocytes % 15.2 % (15.3-44.8); MCV 94.8 fL (80-100); MPV 7.4 fL (7.6-11.3); RBC Red Blood Cell Count 2.53 M/uL (3.86-4.86)
[2022-08-14 06:25] LABS: Bilirubin Total 0.2 mg/dL (0.2-1.0); Magnesium 1.6 mg/dL (1.6-2.4); Phosphorus 3.2 mg/dL (2.5-4.9); Potassium 3.9 mmol/L (3.5-5.1); Protein, Total 5.2 g/dL (6.4-8.2)
[2022-08-14] MEDS ORDERED: POTASSIUM CL SA 10 MEQ TAB PO ONE (07:00)
[2022-08-14] MEDS: INSULIN -REGULAR HUMAN 50 UNIT/0.5 ML ML SQ SCH ×4 (07:30→20:30)
[2022-08-14 08:22] LABS: Blood Morphology Comment NOT SEEN (NOT SEEN); Platelet Estimate ADEQ
[2022-08-14] MEDS: Meropenem 1,000 MG in NA CHLORIDE 0.9% 100 ML IV SCH ×2 (08:27→17:00)
[2022-08-14] MEDS: MAGNESIUM CHLORIDE 64 MG TAB PO SCH (08:28)
[2022-08-14] MEDS: FLUCONAZOLE 100 MG TAB PO SCH (08:28)
[2022-08-14] MEDS: LACTOSE-REDUCED FOOD 330 ML LIQUID PO SCH ×2 (08:29→20:30)
[2022-08-14] MEDS ORDERED: MAGNESIUM SULFATE 1 gm IVPB 1 GM/100 ML BAG IV ONE (09:00)
[2022-08-14 09:56] LABS: Hepatitis C Virus RNA (PCR)log <1.18 log IU/mL
[2022-08-14 09:57] LABS: Albumin, (SPE) 1.6 g/dL (L)
[2022-08-14 09:58] LABS: Alpha-1-Globulins 0.7 g/dL (H); Alpha-2-Globulins 0.9 g/dL
[2022-08-14 10:00] LABS: Gamma Globulins 0.3 g/dL (L)
[2022-08-14 10:01] LABS: INTERPRETATION REPORT
--- NOTE | 2022-08-14 10:09 | P.PN ---
Subjective Date of Service: 08/14/22 Chief Complaint: Intra-abdominal abscess Patient was sitting in the chair watching TV with daughter at the bedside. No signs of cardiopulmonary distress. Physical Examination - Vital Signs Temperature: 98.0 F Blood Pressure: 106/56 Pulse: 86 Respirations: 16 Pulse Ox (%): 95 - Physical Exam General: Alert, In no apparent distress, Oriented x3 Respiratory: Clear to auscultation bilaterally Cardiovascular: Other (3rd heart sound heard), Edema (+2 bilateral legs edema), Irregular heart rate/rhythm (patient is aware and will follow up as outpatient ) Gastrointestinal: Hypoactive, Other (three BERNARDINO drains in place with serous and serosanguinous drainage) Musculoskeletal: Swelling (+1 pitting edema bilateral legs) Integumentary: Other (Abdominal midline surgical incision dry and clean; three BERNARDINO drains in place; #1 with mild erythema in the insertion site) Neurological: Normal speech, Normal tone - Studies Current Medications: Dextrose (D10w 250 Ml Bag) 125 ml IV PRN PRN PRN Reason: HYPOGLYCEMIA Glucagon (Glucagon 1 Mg/Vial) 1 mg IM 1X PRN PRN Reason: HYPOGLYCEMIA Meropenem 1,000 mg/ Sodium (Chloride) 100 mls @ 200 mls/hr IV Q8HR [facility] Stop: 08/27/22 17:01 Last Admin: 08/14/22 17:00 Dose: 100 mls Insulin Human Regular (Insulin -Regular Human 50 Unit/0.5 Ml Ml) 0 unit SQ ACHS [facility]; Protocol Last Admin: 08/14/22 16:30 Dose: Not Given Magnesium Chloride (Magnesium Chloride 64 Mg Tab) 64 mg PO DAILY [facility] Last Admin: 08/14/22 08:28 Dose: 64 mg Metoprolol Tartrate (Metoprolol Tar 25 Mg Tab) 25 mg PO BID 6AM 6PM [facility] Last Admin: 08/14/22 17:14 Dose: 25 mg Metronidazole (Metronidazole 500 Mg Tablet) 500 mg PO Q6HR [facility]; Protocol Stop: 08/27/22 12:01 Last Admin: 08/14/22 17:00 Dose: 500 mg Ondansetron HCl (Ondansetron 4 Mg/2 Ml Vial) 4 mg IV Q6HP PRN PRN Reason: NAUSEA / VOMITING Sodium Chloride (Flush Normal Saline 10 Ml) 10 ml IV BID [facility] Last Admin: 08/14/22 08:29 Dose: 10 ml Sodium Chloride (Sodium Chloride 0.9% 10ml Inj) 10 ml IV UD PRN PRN Reason: Diluant Imagings Data: 08/02 CT - Abd/Pel: IMPRESSION: Bowel perforation is present and favored to be in the mid transverse colon where the colon herniates through 1 of the many small hernia defects in the periumbilical region. Moderate amount of free intraperitoneal air is present. Small bowel perforation is possible as well. Small bowel obstruction is present with numerous dilated small bowel loops from the ligament of Treitz to the proxi mal ileum level. A discrete small bowel mass is not seen. No disruption of the distal small bowel anastomosis identifiable. Patient has a very large and complex ventral hernia that extends from the u mbilical to the suprapubic region. There are numerous defects in the abdominal wall. Inferiorly the complex hernia contains numerous nondilated small bowel loops. No hydronephrosis of either kidney. No obstructing calculi. Both kidneys do appear slightly edematous. Isodense masses and pyelonephritis are not excluded. No abscess. Assessment And Plan - Current Problems (Diagnosis) (1) Intra-abdominal abscess Current Visit: Yes Status: Acute Plan: Cultures: - 08/02 Wound abdomen: Positive Enterobacter Aerogenes (Multi-drug Resistant) - 08/08 UC: Kriss albicans positive - 08/08 BC: Negative - 08/11 Wound abdomen: Negative - 08/11 Wound abdomen Fungal: Pending Antibiotics: 1. IV Metronidazole, 08/09 to present 2. IV Meropenem, 08/12 to present 3. PO Fluconazole, 08/13 to present Recommendation: - Continue current IV antibiotic ID will keep monitoring signs of infection with fever and WBC trends. (2) Leukocytosis Current Visit: Yes Status: Acute Plan: - Likely due to intra-abdominal abscess - WBC: 13.6, trending down. ID will keep monitoring the trends (3) Severe protein-calorie malnutrition Current Visit: Yes Status: Acute Plan: Encourage to increase protein oral intake as tolerated and recommend to have supplemental protein drinks for supporting adequate immunity - Plan Intra-abdominal abscess: Recommend to continue current IV antibiotics Leukocytosis: Trending down today and will keep monitoring WBC trends Severe protein calorie malnutrition Septic Shock likely secondary to Multiple Intra-Abdominal Abscesses and Possible Acute Pyelonephritis Complex Ventral Hernia with Bowel Obstruction and Transverse Colon Perforation Multiple Herniated Small Bowel Loops KDIGO Stage III Acute Kidney Injury Left Renal Cyst Left Upper Lobe Cavitary Lesion Hyperglycemia in Type II Diabetes Mellitus Hypertension Dyslipidemia Left Adrenal Mass Fatty Left Adrenal Mass Uterine Fibroid Morbid Obesity - BMI 43.1 kg/m2 Case has been discussed with Litzy Ernst Physician Review: Patient Assessed, Agree with Above Assessment and Plan
[2022-08-14] MEDS ORDERED: DOXYCYCLINE 100 MG CAP PO SCH (13:00)
--- NOTE | 2022-08-14 17:30 | P.PN ---
Subjective Date of Service: 08/14/22 Chief Complaint: Intra-abdominal abscess No acute events overnight. She appears to be doing very well and is eager to be discharged home. Spoke with Dr. Velasquez and Dr. Pugh, who are okay with her being discharged with 14 days of ertapenem, doxycycline, and metrondazole. Her pain is well-controlled. Plan to discharge once Home Health arrangements are secured. Review of Systems 10-point ROS is otherwise unremarkable General: Weakness (generalized, improving) Physical Examination - Vital Signs Temperature: 98.3 F Blood Pressure: 105/58 Pulse: 104 Respirations: 17 Pulse Ox (%): 98 - Physical Exam General: Alert, In no apparent distress, Oriented x3 HEENT: Atraumatic, Mucous membr. moist/pink, EOMI, Sclerae nonicteric Neck: JVD not distended Respiratory: Clear to auscultation bilaterally, Normal air movement Cardiovascular: No edema, Regular rate/rhythm, Normal S1 S2, No gallops, No rubs, No murmurs Gastrointestinal: Normal bowel sounds, Soft and benign, Non-distended, No tenderness, No rebound, No guarding, Other (3 BERNARDINO drains noted, with minimal output) Musculoskeletal: No clubbing Integumentary: No rashes Neurological: Normal speech, Cranial nerves 3-12 intact, Normal affect Assessment And Plan - Plan # Septic Shock likely secondary to Multiple Intra-Abdominal Abscesses and Possible Acute Pyelonephritis # Multiple Post-Operative Intra-Abdominal Abscess s/p CT-guided IR Drain Placement # Wound Culture positive for Enterobacter Aerogenes # Possible Aspiration Pneumonia (noted on CXR from 08/05/2022) # Complex Ventral Hernia with Bowel Obstruction and Transverse Colon Perforation # Multiple Herniated Small Bowel Loops She initially met sepsis criteria based on HR > 90 bpm, RR > 20 breaths/min, and WBC > 12,000 and the suspected source was an intra-abdominal abscess vs pyelonephritis. Severe sepsis was suspected due to concern for tissue hypoperfusion/organ dysfunction based on acute respiratory failure requiring intubation, hypotension (SBP < 90, MAP < 65), creatinine >2.0 mg/dL (without ESRD), lactic acid > 2 mmol/L. Septic shock was suspected due to SBP < 90 mmHg , MAP <65. - Sepsis order set was initiated - Lactate trend = 2.4 -> 1.5 - Blood cultures drawn before antibiotics were given - Broad spectrum antibiotics started: Ertapenem - In regards to fluids: - 30 mL/kg of IV fluids was given based on patient's actual body weight - Despite fluids, she remained hypotensive - she had been started on norepinephrine and vasopression drips - Vasopressors weaned off on 08/05/2022 - Repeat CT (08/10/2022) = "Interval laparotomy. Decreased free air however there are now several enhancing fluid collections concerning for abscesses. The collections are located within the ventral hernias. There are least 5 separate collections. No bowel obstruction. Trace pleural effusions with likely underlying atelectasis" - S/P CT-guided IR drain placement on 08/11/2022 - Consulted General Surgery and spoke with Dr. Velasquez - recommendations appreciated - S/P Exploratory laparotomy, small bowel resection, partial omentectomy, intra-abdominal abscess drainage, primary small bowel anastomosis, extensive adhesiolysis greater than 2 hours, and primary abdominal closure (08/02/2022) - Consulted Infectious Diseases and spoke with Dr. Pugh - recommendations appreciated - Recommended 14 additional days of doxycycline, metronidazole, and ertapenem - Appreciate CM assistance with arranging Home Health - Per Dr. Pugh, Kriss Albicans in urine is likely a contaminant - recommended discontinuing fluconazole # KDIGO Stage III Acute Kidney Injury (resolved) # Left Renal Cyst (2 cm) Suspect acute tubular necrosis in the setting of septic shock. - Consulted Nephrology - recommendations appreciated - Creatinine = 5.51 -> 4.90 -> 4.97 -> 3.47 -> 1.96 -> 1.10 - Urinalysis = 2+ blood, 250 leukocyte esterase, >50 WBCs, 20-50 bacteria, 2+ protein - Renal ultrasound = "No hydronephrosis. Small volume of right perinephric fluid. Left upper pole renal cyst." - Monitor creatinine and urine output - Renally dose medications # Left Upper Lobe Cavitary Lesion (3.5 cm) - Pulmonary Medicine consulted and spoke with Dr. 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
--- NOTE | 2022-08-14 20:07 | P.CNS ---
Chief Complaint: Intra-abdominal abscess History of Present Illness: Patient is a 57-year-old female with a past medical history significant for hypertension, HLD, DM2, obesity who presents with complaint of abdominal distention and abdominal pain. Patient reported that she has been having abdominal distention for more than a year but started having generalized abdominal pain 3 days ago. Patient rated pain as 10/10 in severity and described pain as sharp in quality. Patient reported associated signs and symptoms of nausea, vomiting, shortness of breath, dizziness and generalized malaise. Patient denies any other signs and symptoms. Patient reported that she initially went to see her PCP where her blood pressure was noted to be very low in the 70s\40s. Patient was referred to the ER for medical management by her PCP. While in the ER imaging indicated a bowel perforation. Patient was subsequently admitted to the hospital service. Per 08/02 Wound abdomen: Positive Enterobacter Aerogenes (Multi-drug Resistant). ID has been consulted for further recommendation of IV antibiotics and management. Allergies Penicillins Allergy (Verified 08/02/22 14:16) Itching/Hives/Rash Home Medications: Allopurinol 300 mg PO DAILY 08/03/22 Atorvastatin Calcium 10 mg PO DAILY 08/03/22 Metformin HCl 500 mg PO BID 08/03/22 Naproxen 220 mg PO BID 08/03/22 hydroCHLOROthiazide [Hydrochlorothiazide] 25 mg PO DAILY 08/03/22 lisinopriL [Lisinopril] 20 mg PO DAILY 08/03/22 - Past Medical/Surgical History Diabetic: Yes -: Hypertension -: Hyperlipidemia -: DM2 -: Morbid obesity -: incarcerated Hernia repair -: x1 - Family History Mother Medical History: Heart disease, Cancer Father Medical History: Heart disease, Hypertension Sister Medical History: Cancer - Social History Alcohol use: No CD- Drugs: No Caffeine use: Yes Place of Residence: Home Review of Systems Gastrointestinal: As per HPI Physical Examination Temp Pulse Resp BP Pulse Ox 98.0 F 86 16 106/56 L 95 08/14/22 20:07 08/14/22 20:07 08/14/22 20:07 08/14/22 20:07 08/14/22 20:07 General: Alert, In no apparent distress, Oriented x3 Respiratory: Clear to auscultation bilaterally Cardiovascular: Other (3rd heart sound heard), Edema (+2 bilateral legs edema), Irregular heart rate/rhythm (patient is aware and will follow up as outpatient ) Gastrointestinal: Hypoactive, Other (three BERNARDINO drains in place with serous and serosanguinous drainage) Musculoskeletal: Swelling (+2 bilateral legs edema) Integumentary: Other (Abdominal midline surgical incision dry and clean; three BERNARDINO drains in place; #1 with mild erythema in the insertion site) Neurological: Normal speech, Normal tone Current Medications: Dextrose (D10w 250 Ml Bag) 125 ml IV PRN PRN PRN Reason: HYPOGLYCEMIA Glucagon (Glucagon 1 Mg/Vial) 1 mg IM 1X PRN PRN Reason: HYPOGLYCEMIA Meropenem 1,000 mg/ Sodium (Chloride) 100 mls @ 200 mls/hr IV Q8HR [facility] Stop: 08/27/22 17:01 Last Admin: 08/14/22 17:00 Dose: 100 mls Insulin Human Regular (Insulin -Regular Human 50 Unit/0.5 Ml Ml) 0 unit SQ ACHS [facility]; Protocol Last Admin: 08/14/22 16:30 Dose: Not Given Magnesium Chloride (Magnesium Chloride 64 Mg Tab) 64 mg PO DAILY [facility] Last Admin: 08/14/22 08:28 Dose: 64 mg Metoprolol Tartrate (Metoprolol Tar 25 Mg Tab) 25 mg PO BID 6AM 6PM [facility] Last Admin: 08/14/22 17:14 Dose: 25 mg Metronidazole (Metronidazole 500 Mg Tablet) 500 mg PO Q6HR [facility]; Protocol Stop: 08/27/22 12:01 Last Admin: 08/14/22 17:00 Dose: 500 mg Ondansetron HCl (Ondansetron 4 Mg/2 Ml Vial) 4 mg IV Q6HP PRN PRN Reason: NAUSEA / VOMITING Sodium Chloride (Flush Normal Saline 10 Ml) 10 ml IV BID [facility] Last Admin: 08/14/22 08:29 Dose: 10 ml Sodium Chloride (Sodium Chloride 0.9% 10ml Inj) 10 ml IV UD PRN PRN Reason: Diluant Imagings Data: 08/02 CT - Abd/Pel: IMPRESSION: Bowel perforation is present and favored to be in the mid transverse colon where the colon herniates through 1 of the many small hernia defects in the periumbilical region. Moderate amount of free intraperitoneal air is present. Small bowel perforation is possible as well. Small bowel obstruction is present with numerous dilated small bowel loops from the ligament of Treitz to the proximal ileum level. A discrete small bowel mass is not seen. No disruption of the distal small bowel anastomosis identifiable. Patient has a very large and complex ventral hernia that extends from the umbilical to the suprapubic region. There are numerous defects in the abdominal wall. Inferiorly the complex hernia contains numerous nondilated small bowel loops. No hydronephrosis of either kidney. No obstructing calculi. Both kidneys do appear slightly edematous. Isodense masses and pyelonephritis are not excluded. No abscess. - Problems (1) Intra-abdominal abscess Current Visit: Yes Status: Acute Plan: Cultures: - 08/02 Wound abdomen: Positive Enterobacter Aerogenes (Multi-drug Resistant) - 08/08 UC: Kriss albicans positive - 08/08 BC: Negative - 08/11 Wound abdomen: Negative - 08/11 Wound abdomen Fungal: Pending Antibiotics: Recommend to continue current IV Metronidazole (08/09 to 08/27) and IV Meropenem (08/12 to 08/27) 3. PO Fluconazole, 08/13 and 08/14, completed ID will keep monitoring signs of infection with fever and WBC trends. Conclusions/Impression: Septic Shock likely secondary to Multiple Intra-Abdominal Abscesses and Possible Acute Pyelonephritis Complex Ventral Hernia with Bowel Obstruction and Transverse Colon Perforation Multiple Herniated Small Bowel Loops KDIGO Stage III Acute Kidney Injury Left Renal Cyst (2 cm) Left Upper Lobe Cavitary Lesion (3.5 cm) Hyperglycemia in Type II Diabetes Mellitus Hypertension Dyslipidemia Left Adrenal Mass (3 cm) Fatty Left Adrenal Mass (4.6 cm) Uterine Fibroid (2.5 cm) Morbid Obesity - BMI 43.1 kg/m2 Case has been discussed with Litzy Ernst Thank you Dr. Storey for consult
--- NOTE | 2022-08-14 22:19 | PN ---
Date of Progress Note: 08/14/2022 Chief Complaint: Acute kidney injury, severe. Subjective: The patient was found to have acute kidney injury secondary to ATN, prerenal azotemia in setting of sepsis. Creatinine level was 5.4 on admission. The patient was treated with IV fluids a nd antibiotics. She was found to have small bowel obstruction with necrosis and underwent surgery. The patient received antibiotics. The patient has atrial fibrillation, rate is currently controlled. Review of Systems: Denies fever or chills. Physical Examination: Lungs: Clear to auscultation bilaterally. Heart: S1, S2. Abdomen: Soft. Extremities: No edema. Impression And Plan: 1.Acute kidney injury, multifactorial secondary to acute tubular necrosis in setting of sepsis. The patient previously was taking ibuprofen. Differential diagnosis includes interstitial nephritis sec ondary to nonsteroidal antiinflammatory medication. Currently, renal function has improved to baseli ne. 2.Sepsis. Small bowel obstruction with necrosis. Further recommendations per Surgery Service. The patient received antibiotics. 3.Acute respiratory failure secondary to volume overload, improved. 4.Hypomagnesemia. Continue to monitor and adjust treatment with magnesium sulfate IV or magnesium o xide by mouth, as tolerated. EB/MODL Voice ID: [id number] Report ID: [id number]
[2022-08-15] MEDS: metroNIDAZOLE 500 MG TABLET PO SCH ×5 (00:01→23:50)
[2022-08-15] MEDS: Meropenem 1,000 MG in NA CHLORIDE 0.9% 100 ML IV SCH ×3 (00:01→16:24)
[2022-08-15] MEDS: METOPROLOL TAR 25 MG TAB PO SCH ×2 (05:43→16:23)
[2022-08-15 05:44] LABS: Magnesium 1.6 mg/dL (1.6-2.4)
[2022-08-15] MEDS: INSULIN -REGULAR HUMAN 50 UNIT/0.5 ML ML SQ SCH ×4 (07:30→20:50)
[2022-08-15] MEDS: MAGNESIUM CHLORIDE 64 MG TAB PO SCH (08:21)
[2022-08-15] MEDS: LACTOSE-REDUCED FOOD 330 ML LIQUID PO SCH ×2 (08:22→20:49)
[2022-08-15] MEDS ORDERED: MAGNESIUM SULFATE 1 gm IVPB 1 GM/100 ML BAG IV ONE (09:00)
--- NOTE | 2022-08-15 09:22 | P.PN ---
Subjective Date of Service: 08/15/22 Chief Complaint: Intra-abdominal abscess Patient was sitting in the chair chatting with her sister and reported feeling better. 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 No signs of cardiopulmonary distress. Physical Examination - Vital Signs Temperature: 98.3 F Blood Pressure: 124/63 Pulse: 88 Respirations: 17 Pulse Ox (%): 97 - Physical Exam General: Alert, In no apparent distress, Oriented x3 Respiratory: Clear to auscultation bilaterally Cardiovascular: Other (3rd heart sound heard), Edema (+2 bilateral legs edema), Irregular heart rate/rhythm (patient aware and will follow up as outpatient) Gastrointestinal: Hypoactive, Other (three BERNARDINO drains in place with serous fluid color) Musculoskeletal: Swelling (Bilateral legs 2+ edema) Integumentary: Other (Mid abdomen surgical incision with reinier in place, dry and clean. Three BERNARDINO drains in place. #1 insertion site with mild redness) Neurological: Normal speech, Normal tone - Studies Current medications: Dextrose (D10w 250 Ml Bag) 125 ml IV PRN PRN PRN Reason: HYPOGLYCEMIA Glucagon (Glucagon 1 Mg/Vial) 1 mg IM 1X PRN PRN Reason: HYPOGLYCEMIA Meropenem 1,000 mg/ Sodium (Chloride) 100 mls @ 200 mls/hr IV Q8HR [facility] Stop: 08/27/22 17:01 Last Admin: 08/15/22 08:21 Dose: 100 mls Magnesium Sulfate/Dextrose (Magnesium Sulfate 1gm/D5w Ivpb (Premix)) 1 gm in 100 mls @ 100 mls/hr IV 1X ONE Stop: 08/15/22 09:59 Last Admin: 08/15/22 08:21 Dose: 100 mls Insulin Human Regular (Insulin -Regular Human 50 Unit/0.5 Ml Ml) 0 unit SQ ACHS [facility]; Protocol Last Admin: 08/15/22 07:30 Dose: Not Given Magnesium Chloride (Magnesium Chloride 64 Mg Tab) 64 mg PO DAILY [facility] Last Admin: 08/15/22 08:21 Dose: 64 mg Metoprolol Tartrate (Metoprolol Tar 25 Mg Tab) 25 mg PO BID 6AM 6PM [facility] Last Admin: 08/15/22 05:43 Dose: 25 mg Metronidazole (Metronidazole 500 Mg Tablet) 500 mg PO Q6HR [facility]; Protocol Stop: 08/27/22 12:01 Last Admin: 08/15/22 05:43 Dose: 500 mg Ondansetron HCl (Ondansetron 4 Mg/2 Ml Vial) 4 mg IV Q6HP PRN PRN Reason: NAUSEA / VOMITING Sodium Chloride (Flush Normal Saline 10 Ml) 10 ml IV BID [facility] Last Admin: 08/15/22 08:22 Dose: 10 ml Sodium Chloride (Sodium Chloride 0.9% 10ml Inj) 10 ml IV UD PRN PRN Reason: Diluant Assessment And Plan - Current Problems (Diagnosis) (1) Intra-abdominal abscess Current Visit: Yes Status: Acute Plan: Cultures: - 08/02 Wound abdomen: Positive Enterobacter Aerogenes (Multi-drug Resistant) - 08/08 UC: Kriss albicans positive - 08/08 BC: Negative - 08/11 Wound abdomen: Negative - 08/11 Wound abdomen Fungal: Pending Antibiotics: 1. IV Metronidazole, 08/09 to 08/27 2. IV Meropenem, 08/12 to 08/27 3. PO Fluconazole, 08/13 to 08/14, completed Recommendation: - Continue current IV antibiotic Meropenem and Metronidazole ID will keep monitoring signs of infection with fever and WBC trends. (2) Leukocytosis Current Visit: Yes Status: Acute Plan: - Likely due to intra-abdominal abscess - WBC: 08/14 13.6, trending down. ID will keep monitoring the trends (3) Severe protein-calorie malnutrition Current Visit: Yes Status: Acute Plan: Encourage to increase protein oral intake as tolerated and recommend to have supplemental protein drinks for supporting adequate immunity - Plan Intra-abdominal abscess: Recommend to continue current IV antibiotics Leukocytosis: Trending down today and will keep monitoring WBC trends Severe protein calorie malnutrition Septic Shock likely secondary to Multiple Intra-Abdominal Abscesses and Possible Acute Pyelonephritis Complex Ventral Hernia with Bowel Obstruction and Transverse Colon Perforation Multiple Herniated Small Bowel Loops KDIGO Stage III Acute Kidney Injury Left Renal Cyst Left Upper Lobe Cavitary Lesion Hyperglycemia in Type II Diabetes Mellitus Hypertension Dyslipidemia Left Adrenal Mass Fatty Left Adrenal Mass Uterine Fibroid Morbid Obesity - BMI 43.1 kg/m2 Case has been discussed with Dr. Pugh, N Physician Review: Patient Assessed, Agree with Above Assessment and Plan
--- NOTE | 2022-08-15 10:14 | P.PN ---
Subjective Date of Service: 08/15/22 Chief Complaint: Intra-abdominal abscess Subjective Pt with Sepsis, bowel obstruction, cr 5.4 on admission today No overnight events WBC trending down will give lasix X1 Physical exam General: AAOx3, NAD, obese HEENT PERRLA, moist mucose membrane neck: supple, no elevated JVD CHEST; CTAB, no wheezes or rales HEART : RRR. Normal S1,2 no murmur or rub Abd: soft, Nt Ext: edema Skin : No rash A/p 1. Acute kidney injury multifactorial secondary to toxic acute tubular necrosis secondary to sepsis, r/o Interstitial nephritis secondary to nonsteroidal antiinflammatory drug use including ibuprofen. PANDA resolved. Monitor renal panel., off IVF 2. Htn. BP controlle, monitor. 3. Sepsis, SBO w/ necrosis. Per surgery service. Received abx. 4. Acute respiratory failure secondary to over volume. Improved. Per other services. 5. HypoMg. Mg repletion prn. 6. Afib. Per Cardiology. Physical Examination - Vital Signs Temperature: 98.3 F Blood Pressure: 124/63 Pulse: 88 Respirations: 17 Pulse Ox (%): 97 Assessment And Plan Physician Review: Patient Assessed, Agree with Above Assessment and Plan
[2022-08-15] MEDS ORDERED: FUROSEMIDE 40 MG/4 ML VIAL IV ONE (10:30)
--- NOTE | 2022-08-15 17:44 | P.PN ---
Subjective Date of Service: 08/15/22 Chief Complaint: Intra-abdominal abscess No acute events overnight. She is doing well clinically. We are awaiting for Home Health to be secured prior to discharge. She denies any particular concerns this morning. Review of Systems 10-point ROS is otherwise unremarkable Physical Examination - Vital Signs Temperature: 98.3 F Blood Pressure: 124/63 Pulse: 88 Respirations: 17 Pulse Ox (%): 97 Assessment And Plan - Plan - Physical Exam General: Alert, In no apparent distress, Oriented x3 HEENT: Atraumatic, Mucous membr. moist/pink, Sclerae nonicteric Neck: JVD not distended Respiratory: Clear to auscultation bilaterally, Normal air movement Cardiovascular: No edema, Regular rate/rhythm, No murmurs Gastrointestinal: Normal bowel sounds, Soft and benign, Non-distended, No tenderness, No rebound, No guarding, Other (3 BERNARDINO drains noted, with minimal output) Musculoskeletal: No clubbing Integumentary: No rashes Neurological: Normal speech, Normal affect # Septic Shock likely secondary to Multiple Intra-Abdominal Abscesses and Possible Acute Pyelonephritis # Multiple Post-Operative Intra-Abdominal Abscess s/p CT-guided IR Drain Placement # Wound Culture positive for Enterobacter Aerogenes # Possible Aspiration Pneumonia (noted on CXR from 08/05/2022) # Complex Ventral Hernia with Bowel Obstruction and Transverse Colon Perforation # Multiple Herniated Small Bowel Loops She initially met sepsis criteria based on HR > 90 bpm, RR > 20 breaths/min, and WBC > 12,000 and the suspected source was an intra-abdominal abscess vs pyelonephritis. Severe sepsis was suspected due to concern for tissue hypoperfusion/organ dysfunction based on acute respiratory failure requiring intubation, hypotension (SBP < 90, MAP < 65), creatinine >2.0 mg/dL (without ESRD), lactic acid > 2 mmol/L. Septic shock was suspected due to SBP < 90 mmHg , MAP <65. - Sepsis order set was initiated - Lactate trend = 2.4 -> 1.5 - Blood cultures drawn before antibiotics were given - Broad spectrum antibiotics started: Ertapenem - In regards to fluids: - 30 mL/kg of IV fluids was given based on patient's actual body weight - Despite fluids, she remained hypotensive - she had been started on norepinephrine and vasopression drips - Vasopressors weaned off on 08/05/2022 - Repeat CT (08/10/2022) = "Interval laparotomy. Decreased free air however there are now several enhancing fluid collections concerning for abscesses. The collections are located within the ventral hernias. There are least 5 separate collections. No bowel obstruction. Trace pleural effusions with likely underlying atelectasis" - S/P CT-guided IR drain placement on 08/11/2022 - Consulted General Surgery and spoke with Dr. Velasquez - recommendations appreciated - S/P Exploratory laparotomy, small bowel resection, partial omentectomy, intra-abdominal abscess drainage, primary small bowel anastomosis, extensive adhesiolysis greater than 2 hours, and primary abdominal closure (08/02/2022) - Consulted Infectious Diseases and spoke with Dr. Pugh - recommendations appreciated - Recommended 14 additional days of doxycycline, metronidazole, and ertapenem - Appreciate CM assistance with arranging Home Health - Per Dr. Pugh, Kriss Albicans in urine is likely a contaminant - recommended discontinuing fluconazole # KDIGO Stage III Acute Kidney Injury (resolved) # Left Renal Cyst (2 cm) Suspect acute tubular necrosis in the setting of septic shock. - Consulted Nephrology - recommendations appreciated - Creatinine = 5.51 -> 4.90 -> 4.97 -> 3.47 -> 1.96 -> 1.10 - Urinalysis = 2+ blood, 250 leukocyte esterase, >50 WBCs, 20-50 bacteria, 2+ protein - Renal ultrasound = "No hydronephrosis. Small volume of right perinephric fluid. Left upper pole renal cyst." - Monitor creatinine and urine output - Renally dose medications # Left Upper Lobe Cavitary Lesion (3.5 cm) - Pulmonary Medicine consulted and spoke with Dr. 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 Kilo Bae M.D.
[2022-08-16] MEDS: Meropenem 1,000 MG in NA CHLORIDE 0.9% 100 ML IV SCH ×2 (00:21→08:32)
[2022-08-16 04:43] LABS: Absolute Lymphocytes (CBC) 1.5 K/uL (0.7-4.9); Hematocrit 21.9 % (36.0-45.0); Lymphocytes % 13.3 % (15.3-44.8); MCV 93.9 fL (80-100); MPV 7.2 fL (7.6-11.3); RBC Red Blood Cell Count 2.33 M/uL (3.86-4.86)
[2022-08-16 05:40] LABS: Magnesium 1.6 mg/dL (1.6-2.4); Potassium 3.7 mmol/L (3.5-5.1)
[2022-08-16] MEDS: metroNIDAZOLE 500 MG TABLET PO SCH ×4 (05:54→23:32)
[2022-08-16] MEDS: METOPROLOL TAR 25 MG TAB PO SCH ×2 (05:54→17:07)
[2022-08-16] MEDS: INSULIN -REGULAR HUMAN 50 UNIT/0.5 ML ML SQ SCH ×4 (07:30→20:39)
[2022-08-16] MEDS: MAGNESIUM CHLORIDE 64 MG TAB PO SCH (08:32)
[2022-08-16] MEDS ORDERED: POTASSIUM CL SA 10 MEQ TAB PO ONE (09:00)
[2022-08-16] MEDS: LACTOSE-REDUCED FOOD 330 ML LIQUID PO SCH ×2 (09:00→20:25)
[2022-08-16] MEDS ORDERED: MAGNESIUM SULFATE 1 gm IVPB 1 GM/100 ML BAG IV ONE (09:00)
--- NOTE | 2022-08-16 11:28 | P.PN ---
Subjective Date of Service: 08/16/22 Chief Complaint: Intra-abdominal abscess Patient was sitting in the chair with daughter at the bedside. 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 No signs of cardiopulmonary distress. Physical Examination - Vital Signs Temperature: 98.3 F Blood Pressure: 121/66 Pulse: 97 Respirations: 16 Pulse Ox (%): 93 - Physical Exam General: Alert, In no apparent distress, Oriented x3 Respiratory: Clear to auscultation bilaterally Cardiovascular: Other (3nd heart sound heard), Edema (2+ legs), Irregular heart rate/rhythm (patient aware and will follow up as outpatient) Gastrointestinal: Hypoactive, Other ([address]) Musculoskeletal: Swelling (2+ legs) Integumentary: Other (Mid abdomen surgical incision with reinier in place, dry and clean. Three BERNARDINO drains in place. #1 insertion site with mild redness) Neurological: Normal speech, Normal tone, Normal affect - Studies Dextrose (D10w 250 Ml Bag) 125 ml IV PRN PRN PRN Reason: HYPOGLYCEMIA Glucagon (Glucagon 1 Mg/Vial) 1 mg IM 1X PRN PRN Reason: HYPOGLYCEMIA Meropenem 1,000 mg/ Sodium (Chloride) 100 mls @ 200 mls/hr IV Q8HR [facility] Stop: 08/27/22 17:01 Last Admin: 08/16/22 08:32 Dose: 100 mls Insulin Human Regular (Insulin -Regular Human 50 Unit/0.5 Ml Ml) 0 unit SQ ACHS [facility]; Protocol Last Admin: 08/16/22 07:30 Dose: Not Given Magnesium Chloride (Magnesium Chloride 64 Mg Tab) 64 mg PO DAILY [facility] Last Admin: 08/16/22 08:32 Dose: 64 mg Metoprolol Tartrate (Metoprolol Tar 25 Mg Tab) 25 mg PO BID 6AM 6PM [facility] Last Admin: 08/16/22 05:54 Dose: 25 mg Metronidazole (Metronidazole 500 Mg Tablet) 500 mg PO Q6HR [facility]; Protocol Stop: 08/27/22 12:01 Last Admin: 08/16/22 05:54 Dose: 500 mg Ondansetron HCl (Ondansetron 4 Mg/2 Ml Vial) 4 mg IV Q6HP PRN PRN Reason: NAUSEA / VOMITING Sodium Chloride (Flush Normal Saline 10 Ml) 10 ml IV BID [facility] Last Admin: 08/16/22 08:32 Dose: 10 ml Sodium Chloride (Sodium Chloride 0.9% 10ml Inj) 10 ml IV UD PRN PRN Reason: Diluant Assessment And Plan - Current Problems (Diagnosis) (1) Intra-abdominal abscess Current Visit: Yes Status: Acute Plan: Cultures: - 08/02 Wound abdomen: Positive Enterobacter Aerogenes (Multi-drug Resistant) - 08/08 UC: Kriss albicans positive - 08/08 BC: Negative - 08/11 Wound abdomen: Negative - 08/11 Wound abdomen Fungal: Pending Antibiotics: 1. PO Metronidazole, 08/09 to 08/27 2. IV Meropenem, 08/12 to 08/27 3. PO Fluconazole, 08/13 to 08/14, completed Recommendation: - Continue current PO Metronidazole - Switch IV Meropenem to PO Ciprofloxacin ID will keep monitoring signs of infection with fever and WBC trends. (2) Severe protein-calorie malnutrition Current Visit: Yes Status: Acute Plan: Encourage to increase protein oral intake as tolerated and recommend to have supplemental protein drinks for supporting adequate immunity (3) Leukocytosis Current Visit: Yes Status: Acute Plan: - Likely due to intra-abdominal abscess - WBC: Resolved. - Plan Intra-abdominal abscess: Recommend to continue current IV antibiotics Leukocytosis: Resolved, and ID will keep monitoring WBC trends Severe protein calorie malnutrition Septic Shock likely secondary to Multiple Intra-Abdominal Abscesses and Possible Acute Pyelonephritis Complex Ventral Hernia with Bowel Obstruction and Transverse Colon Perforation Multiple Herniated Small Bowel Loops KDIGO Stage III Acute Kidney Injury Left Renal Cyst Left Upper Lobe Cavitary Lesion Hyperglycemia in Type II Diabetes Mellitus Hypertension Dyslipidemia Left Adrenal Mass Fatty Left Adrenal Mass Uterine Fibroid Morbid Obesity - BMI 43.1 kg/m2 Case has been discussed with Litzy Ernst Physician Review: Patient Assessed, Agree with Above Assessment and Plan
[2022-08-16 12:09] LABS: Hematocrit 25.9 % (36.0-45.0)
[2022-08-16] MEDS: CIPROFLOXACIN HCL 500 MG TAB PO SCH ×2 (13:33→20:25)
--- NOTE | 2022-08-16 18:58 | P.PN ---
Subjective Date of Service: 08/16/22 Chief Complaint: Intra-abdominal abscess No acute events overnight. She is doing well clinically and is eager to be discharged home. Despite our case management team contacting multiple Home Health agencies, we have been unsuccessful with finding one in network with her insurance. Will consult Infectious Diseases regarding the possibility of PO alternative antibiotics. She denies any particular concerns this morning. Review of Systems 10-point ROS is otherwise unremarkable Physical Examination - Vital Signs Temperature: 99.4 F Blood Pressure: 110/54 Pulse: 108 Respirations: 16 Pulse Ox (%): 97 Assessment And Plan - Plan - Physical Exam General: Alert, In no apparent distress, Oriented x3 HEENT: Atraumatic, Mucous membr. moist/pink, Sclerae nonicteric Neck: JVD not distended Respiratory: Clear to auscultation bilaterally, Normal air movement Cardiovascular: No edema, Regular rate/rhythm, No murmurs Gastrointestinal: Normal bowel sounds, Soft and benign, Non-distended, No tenderness, No rebound, No guarding, Other (3 BERNARDINO drains noted, with minimal output) Musculoskeletal: No clubbing Integumentary: No rashes Neurological: Normal speech, Normal affect # Septic Shock likely secondary to Multiple Intra-Abdominal Abscesses and Possible Acute Pyelonephritis # Multiple Post-Operative Intra-Abdominal Abscess s/p CT-guided IR Drain Placement # Wound Culture positive for Enterobacter Aerogenes # Possible Aspiration Pneumonia (noted on CXR from 08/05/2022) # Complex Ventral Hernia with Bowel Obstruction and Transverse Colon Perforation # Multiple Herniated Small Bowel Loops She initially met sepsis criteria based on HR > 90 bpm, RR > 20 breaths/min, and WBC > 12,000 and the suspected source was an intra-abdominal abscess vs pyelonephritis. Severe sepsis was suspected due to concern for tissue hypoperfusion/organ dysfunction based on acute respiratory failure requiring intubation, hypotension (SBP < 90, MAP < 65), creatinine >2.0 mg/dL (without ESRD), lactic acid > 2 mmol/L. Septic shock was suspected due to SBP < 90 mmHg , MAP <65. - Sepsis order set was initiated - Lactate trend = 2.4 -> 1.5 - Blood cultures drawn before antibiotics were given - Broad spectrum antibiotics started: Ertapenem - In regards to fluids: - 30 mL/kg of IV fluids was given based on patient's actual body weight - Despite fluids, she remained hypotensive - she had been started on norepinephrine and vasopression drips - Vasopressors weaned off on 08/05/2022 - Repeat CT (08/10/2022) = "Interval laparotomy. Decreased free air however there are now several enhancing fluid collections concerning for abscesses. The collections are located within the ventral hernias. There are least 5 separate collections. No bowel obstruction. Trace pleural effusions with likely underlying atelectasis" - S/P CT-guided IR drain placement on 08/11/2022 - Consulted General Surgery and spoke with Dr. Velasquez - recommendations appreciated - S/P Exploratory laparotomy, small bowel resection, partial omentectomy, intra-abdominal abscess drainage, primary small bowel anastomosis, extensive adhesiolysis greater than 2 hours, and primary abdominal closure (08/02/2022) - Consulted Infectious Diseases and spoke with Dr. Pugh - recommendations appreciated - Recommended 14 additional days of doxycycline, metronidazole, and ertapenem - Doxycycline was discontinued due to flushing - Appreciate ID recommendations regarding the possibility of a PO alternative to her current antibiotic regimen - Appreciate CM assistance with arranging Home Health - Per Dr. Pugh, Kriss Albicans in urine is likely a contaminant - recommended discontinuing fluconazole # KDIGO Stage III Acute Kidney Injury (resolved) # Left Renal Cyst (2 cm) Suspect acute tubular necrosis in the setting of septic shock. - Consulted Nephrology - recommendations appreciated - Creatinine = 5.51 -> 4.90 -> 4.97 -> 3.47 -> 1.96 -> 1.10 - Urinalysis = 2+ blood, 250 leukocyte esterase, >50 WBCs, 20-50 bacteria, 2+ protein - Renal ultrasound = "No hydronephrosis. Small volume of right perinephric fluid. Left upper pole renal cyst." - Monitor creatinine and urine output - Renally dose medications # Left Upper Lobe Cavitary Lesion (3.5 cm) - Pulmonary Medicine consulted and spoke with Dr. 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
--- NOTE | 2022-08-16 19:45 | PN ---
Date of Progress Note: 08/16/2022 Subjective: The patient was admitted with intestinal perforation status post resection. The patient developed acute kidney injury secondary to poor perfusion ATN, toxic ATN. The patient did not require any dialysis or renal replacement therapy. The patient's kidney function normalized. Physical Examination: Vital Signs: When I saw the patient, blood pressure 110/54, pulse of 100, afebrile. Chest: Decreased entry bilateral base. Heart: S1, S2 regular. Abdomen: Soft, nontender. Extremities: +1 edema. Neurologic: Alert. No focality. Laboratory Data: Hemoglobin 8.6. Sodium 142, potassium 3.7, bicarb 26, BUN 15, creatinine 0.4. Calcium 7.7, magnesium 1.6. Assessment And Plan: 1. Acute kidney injury secondary to poor perfusion ATN, toxic ATN, recovered, resolved. Currently has peripheral edema. I am going to give single dose of Lasix. 2. Hypokalemia. We will supplement. 3. Hypomagnesemia. We will supplement. 4. Edema secondary to malnourished. We will diurese. Continue to encourage calorie intake. 5. Small bowel perforation status post resection. We will follow up with Surgery. Time spent examining the patient [id number] reviewing data lab and radiology discussing the case with the patient placing order discussing the case with the hospice team lead including nursing discussing the case with the hospitalist more than 35-minute [email or web address] Voice ID: [id number] Report ID: [id number] MTDD
[2022-08-17] MEDS: metroNIDAZOLE 500 MG TABLET PO SCH (06:12)
[2022-08-17] MEDS: METOPROLOL TAR 25 MG TAB PO SCH (06:12)
[2022-08-17] MEDS ORDERED: MAGNESIUM SULFATE 1 gm IVPB 1 GM/100 ML BAG IV ONE (06:49)
[2022-08-17] MEDS: INSULIN -REGULAR HUMAN 50 UNIT/0.5 ML ML SQ SCH (07:30)
[2022-08-17] MEDS: CIPROFLOXACIN HCL 500 MG TAB PO SCH (08:20)
[2022-08-17] MEDS: LACTOSE-REDUCED FOOD 330 ML LIQUID PO SCH (08:20)
[2022-08-17] MEDS: MAGNESIUM CHLORIDE 64 MG TAB PO SCH (08:20)
--- NOTE | 2022-08-17 08:26 | P.DS ---
Admission Date: 08/02/22 Discharge Date: 08/17/22 Disposition: ROUTINE DISCHARGE Discharge Condition: GOOD Reason for Admission: Intra-abdominal abscess Consultations: 1. General Surgery 2. Pulmonary Medicine 3. Nephrology 4. Cardiology 5. Interventional Radiology 6. Infectious Diseases Procedures: - 08/02/2022 - Exploratory Laparotomy, Small Bowel Resection, Partial Omentectomy, Intra-Abdominal Abscess Drainage, Primary Small Bowel Anastomosis, Extensive Adhesiolysis, and Primary Abdominal Closure - 08/11/2022 - 1. Technically successful ultrasound-guided placement of 3 drainage catheters into 3 separate abdominal wall fluid collections. 2. Successful aspiration of a fourth collection. Hospital Course: DIAGNOSES: # Septic Shock likely secondary to Multiple Intra-Abdominal Abscesses and Possible Acute Pyelonephritis # Multiple Post-Operative Intra-Abdominal Abscess s/p CT-guided IR Drain Placement # Wound Culture positive for Enterobacter Aerogenes # Possible Aspiration Pneumonia (noted on CXR from 08/05/2022) # Complex Ventral Hernia with Bowel Obstruction and Transverse Colon Perforation # Multiple Herniated Small Bowel Loops # KDIGO Stage III Acute Kidney Injury (resolved) # Left Renal Cyst (2 cm) # Left Upper Lobe Cavitary Lesion (3.5 cm) - not felt to be Infectious per Pulmonary # Hyperglycemia in Type II Diabetes Mellitus # Hypertension # Dyslipidemia # Left Adrenal Mass (3 cm) # 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 Marcie Da Silva is a pleasant 57 year old female with a past medical history significant for type 2 diabetes mellitus, hypertension, and dyslipidemia who was admitted to the [facility] on 08/02/2022 for septic shock secondary to multiple intra-abdominal abscesses. She was admitted to the Medicine service. Upon further evaluation, her CT abdomen/pelvis revealed, "bowel perforation is present and favored to be in the mid transverse colon where the colon herniates through 1 of the many small hernia defects in the periumbilical region. Moderate amount of free intraperitoneal air is present. Small bowel perforation is possible as well. Small bowel obstruction is present with numerous dilated small bowel loops from the ligament of Treitz to the proximal ileum level. A discrete small bowel mass is not seen. No disruption of the distal small bowel anastomosis identifiable. Patient has a very large and complex ventral hernia that extends from the umbil ical to the suprapubic region. There are numerous defects in the abdominal wall. Inferiorly the complex hernia contains numerous nondilated small bowel loops. No hydronephrosis of either kidney. No obstructing calculi. Both kidneys do appear slightly edematous. Isodense masses and pyelonephritis are not excluded. No abscess." General Surgery was consulted and she was evaluated by Dr. Velasquez. She was taken to the operating room emergently, and underwent exploratory laparotomy, small bowel resection, partial omentectomy, intra-abdominal abscess drainage, primary small bowel anastomosis, extensive adhesiolysis greater than 2 hours, and primary abdominal closure. Post-operatively, she was admitted to the intensive care unit and required vasopressor therapy and mechanical ventilation. While in the intensive care unit, Pulmonary Medicine was consulted and her care was managed by Dr. Ta. Additionally, she was found to have a KDIGO stage III acute kidney injury likely due to her septic shock. Nephrology was consulted and Dr. Jasso evaluated her for this. Over the course of her hospitalization, her vasopressor therapy was weaned and she was extubated. She was downgraded out of the ICU and continued to improve daily. Despite her clinical improvement, her leukocytosis persisted. On 08/10/2022, a repeat CT chest/abdomen/pelvis was obtained, which revealed, "interval laparotomy. Decreased free air however there are now several enhancing fluid collections concerning for abscesses. The collections are located within the ventral hernias. There are least 5 separate collections. No bowel obstruction. Trace pleural effusions with likely underlying atelectasis." Interventional Radiology was consulted and she was evaluated by Dr. Mcgee. On 08/11/2022, she underwent an ultrasound-guided placement of 3 drainage catheters into 3 separate abdominal wall fluid collections, and successful aspiration of a fourth collection. Her wound culture would return positive for Enterobacter Aerogenes. Infectious Diseases was consulted and she was evaluated by Dr. Pugh. His initial recommendation was for doxycycline, metronidazole, and ertapenem. Doxycycline was discontinued due to her experiencing flushing after taking it. Despite multiple attempts from our case management team to secure Home Health arrangements, we were unable to find one in-network with her insurance. After re-evaluation, Dr. Pugh recommended that she be discharged on ciprofloxacin and metronidazole. She will be discharged with the three BERNARDINO drains and both she and her daughter have been provided with extensive teaching on how to manage her drains. Dr. Velasquez will manage her drains as an outpatient. In regards to her incidental findings (adrenal mass, renal cyst, cavitary lung lesion, and uterine fibroid), she will follow this up with her PCP. Of note, while intubated in the intensive care unit, she had demonstrated bigeminy on telemetry. Cardiology was consulted and she was seen by Dr. Stanton. She was started on metoprolol per his recommendations. Her rhythm has since resolved, and she will follow-up with him as an outpatient. On 08/17/2022, she was seen on morning rounds and deemed medically stable for discharge. She was discharged with instructions to schedule follow-up appointments with her PCP (Dr. Siegel), with Cardiology (Dr. Stanton), and with General Surgery (Dr. Velasquez). She was provided prescriptions for ciprofloxacin, metronidazole, and metoprolol. She and her daughter were given the opportunity to ask questions and reported no further questions. Furthermore, all questions were answered to the best of my ability. A copy of this discharge summary will be sent to the above providers to facilitate continuity of care. Today, I personally spent 35 minutes on her case, of which greater than 50% of the time was spent in patient education, counseling, and coordination of care as described above. - Physical Exam General: Alert, In no apparent distress, Oriented x3 HEENT: Atraumatic, Mucous membr. moist/pink, Sclerae nonicteric Neck: JVD not distended Respiratory: Clear to auscultation bilaterally, Normal air movement Cardiovascular: No edema, Regular rate/rhythm, No murmurs Gastrointestinal: Normal bowel sounds, Soft and benign, Non-distended, No tenderness, No rebound, No guarding, Other (3 BERNARDINO drains noted, with minimal output) Musculoskeletal: No clubbing Integumentary: No rashes Neurological: Normal speech, Normal affect Vital Signs/Physical Exam: Temp Pulse Resp BP Pulse Ox 98.5 F 101 H 20 102/53 L 100 08/17/22 08:00 08/17/22 08:00 08/17/22 08:00 08/17/22 08:00 08/17/22 08:00 Laboratory Data at Discharge: WBC 10.90 K/uL (4.3-10.9) 08/16/22 04:15 Hgb 8.6 g/dL (12.0-15.0) L D 08/16/22 11:55 Hct 25.9 % (36.0-45.0) L 08/16/22 11:55 Plt Count 373 K/uL (152-406) 08/16/22 04:15 PT 12.9 SECONDS (9.5-12.5) H 08/02/22 11:49 INR 1.17 08/02/22 11:49 Sodium 142 mmol/L (136-145) 08/16/22 04:15 Potassium 3.7 mmol/L (3.5-5.1) 08/16/22 04:15 BUN 15 mg/dL (7-18) 08/16/22 04:15 Creatinine 0.41 mg/dL (0.55-1.02) L 08/16/22 04:15 Glucose 129 mg/dL (74-106) H 08/16/22 04:15 Uric Acid 7.7 mg/dL (2.6-6.0) H 08/02/22 23:24 Phosphorus 3.2 mg/dL (2.5-4.9) 08/14/22 05:45 Magnesium 1.6 mg/dL (1.6-2.4) 08/17/22 04:40 Total Bilirubin 0.2 mg/dL (0.2-1.0) 08/14/22 05:45 AST 11 U/L (15-37) L 08/14/22 05:45 ALT 19 U/L (13-56) 08/14/22 05:45 Alkaline Phosphatase 45 U/L (45-117) 08/14/22 05:45 Lipase 76 U/L (73-393) 08/02/22 12:41 Home Medications: Allopurinol 300 mg PO DAILY 08/03/22 Atorvastatin Calcium 10 mg PO DAILY 08/03/22 Metformin HCl 500 mg PO BID 08/03/22 lisinopriL [Lisinopril] 20 mg PO DAILY 08/03/22 Ciprofloxacin HCl [Cipro] 500 mg PO BID 10 Days #20 tab 08/17/22 Metoprolol Tartrate [Lopressor*] 25 mg PO BID 6AM 6PM #60 tab 08/17/22 metroNIDAZOLE [Flagyl*] 500 mg PO Q6HR 10 Days #40 tab 08/17/22 New Medications: metroNIDAZOLE [Flagyl*] 500 mg PO Q6HR 10 Days #40 tab Ciprofloxacin HCl [Cipro] 500 mg PO BID 10 Days #20 tab Metoprolol Tartrate [Lopressor*] 25 mg PO BID 6AM 6PM #60 tab Physician Discharge Instructions: 1. Please call and schedule a follow-up appointment with your PCP (Dr. Siegel) in 3-5 days 2. Please call and schedule a follow-up appointment with General Surgery (Dr. Velasquez) in 3-5 days 3. Please call and schedule a follow-up appointment with Cardiology (Dr. Stanton) in 5-7 days Diet: AHA Activity: Ad virginie Followup: Atilio Velasquez MD [ACTIVE - CAN ADMIT] - Bandar Stanton MD [ACTIVE - CAN ADMIT] - Blake Siegel MD [OUTSIDE PHYSICIAN] - Time spent managing pt's care (in minutes): 35
[2022-08-17 08:29] VITALS: BP 102/53; TEMP 98.5
[2022-08-17 08:45] VITALS: O2SAT 100
--- NOTE | 2022-08-17 09:23 | P.PN ---
Subjective Date of Service: 08/17/22 Chief Complaint: Intra-abdominal abscess Patient lying in bed with bedside RN to change abdominal dressing. The three BERNARDINO drains in place with no signs of infection in the insertion sites. No signs of cardiopulmonary distress. Physical Examination - Vital Signs Temperature: 98.5 F Blood Pressure: 102/53 Pulse: 101 Respirations: 20 Pulse Ox (%): 95 - Physical Exam General: Alert, In no apparent distress, Oriented x3 Respiratory: Clear to auscultation bilaterally Cardiovascular: Other (3rd heart sound heard), Irregular heart rate/rhythm (patient will follow up as outpatient) Gastrointestinal: Hypoactive, Other ([address] with no signs of infection) Musculoskeletal: Swelling (2+ edema in legs, dependent in left arm) Integumentary: Other ([address] with no signs of infection. [place] surgical incision clean and dry) Neurological: Normal speech, Normal tone, Normal affect - Studies Current medications: Ciprofloxacin (Ciprofloxacin Hcl 500 Mg Tab) 500 mg PO BID [facility]; Protocol Last Admin: 08/17/22 08:20 Dose: 500 mg Dextrose (D10w 250 Ml Bag) 125 ml IV PRN PRN PRN Reason: HYPOGLYCEMIA Glucagon (Glucagon 1 Mg/Vial) 1 mg IM 1X PRN PRN Reason: HYPOGLYCEMIA Insulin Human Regular (Insulin -Regular Human 50 Unit/0.5 Ml Ml) 0 unit SQ [facility]; Protocol Last Admin: 08/17/22 07:30 Dose: Not Given Magnesium Chloride (Magnesium Chloride 64 Mg Tab) 64 mg PO DAILY [facility] Last Admin: 08/17/22 08:20 Dose: 64 mg Metoprolol Tartrate (Metoprolol Tar 25 Mg Tab) 25 mg PO BID 6AM 6PM [facility] Last Admin: 08/17/22 06:12 Dose: 25 mg Metronidazole (Metronidazole 500 Mg Tablet) 500 mg PO Q6HR [facility]; Protocol Stop: 08/27/22 12:01 Last Admin: 08/17/22 06:12 Dose: 500 mg Ondansetron HCl (Ondansetron 4 Mg/2 Ml Vial) 4 mg IV Q6HP PRN PRN Reason: NAUSEA / VOMITING Sodium Chloride (Flush Normal Saline 10 Ml) 10 ml IV BID [facility] Last Admin: 08/17/22 08:20 Dose: 10 ml Sodium Chloride (Sodium Chloride 0.9% 10ml Inj) 10 ml IV UD PRN PRN Reason: Diluant Microbiology 08/02/22 12:27 Blood - Blood Aerobic Blood Culture - Final No growth in 5 days. 08/02/22 12:27 Blood - Blood Anaerobic Blood Culture - Final No growth in 5 days. 08/02/22 11:49 Blood - Blood Aerobic Blood Culture - Final No growth in 5 days. 08/02/22 11:49 Blood - Blood Anaerobic Blood Culture - Final No growth in 5 days. Assessment And Plan - Current Problems (Diagnosis) (1) Intra-abdominal abscess Status: Acute Plan: Cultures: - 08/02 Wound abdomen: Positive Enterobacter Aerogenes (Multi-drug Resistant) - 08/08 UC: Kriss albicans positive - 08/08 BC: Negative - 08/11 Wound abdomen: Negative - 08/11 Wound abdomen Fungal: Pending Antibiotics: 1. PO Metronidazole, 08/09 to 08/27 2. IV Meropenem, 08/12 to 08/16 3. PO Ciprofloxacin 08/16 to 4. PO Fluconazole, 08/13 to 08/14, completed Recommendation: - Continue current PO Metronidazole and Ciprofloxacin for total of 2 more weeks ID will keep monitoring signs of infection with fever and WBC trends. (2) Severe protein-calorie malnutrition Status: Acute Plan: Encourage to increase protein oral intake as tolerated and recommend to have supplemental protein drinks for supporting adequate immunity (3) Leukocytosis Status: Acute Plan: - Likely due to intra-abdominal abscess - WBC: Resolved. - Plan Intra-abdominal abscess: Recommend to continue current PO Metronidazole and Ciprofloxacin for total of 2 more weeks Leukocytosis: Resolved, and ID will keep monitoring WBC trends Severe protein calorie malnutrition Septic Shock likely secondary to Multiple Intra-Abdominal Abscesses and Possible Acute Pyelonephritis Complex Ventral Hernia with Bowel Obstruction and Transverse Colon Perforation Multiple Herniated Small Bowel Loops KDIGO Stage III Acute Kidney Injury Left Renal Cyst Left Upper Lobe Cavitary Lesion Hyperglycemia in Type II Diabetes Mellitus Hypertension Dyslipidemia Left Adrenal Mass Fatty Left Adrenal Mass Uterine Fibroid Morbid Obesity - BMI 43.1 kg/m2 Case has been discussed with Dr. Pugh N Physician Review: Patient Assessed, Agree with Above Assessment and Plan
[2022-08-17] MEDS ORDERED: FUROSEMIDE 40 MG/4 ML VIAL IV ONE (10:53)
[2022-08-17] MEDS ORDERED: Magnesium Sulfate 2gm IVPB 2 G/50 ML BAG IV ONE (10:53)
--- NOTE | 2022-08-17 13:15 | PN ---
Date of Progress Note: 08/17/2022 Subjective: The patient was admitted with small bowel perforation, status post resection. The patie nt had acute kidney injury required no renal replacement therapy, all fluid resuscitation. It was se condary to toxic ATN, poor perfusion, ATN, recovered. The patient is still on the over volume. Physical Examination: Vital Signs: Blood pressure 102/53, pulse of 101, afebrile. Chest: Decreased entry bilateral base. Heart: S1, S2. Regular. Abdomen: Soft, nontender. No guarding or rebound. Dressing clean. Extremities: Plus edema. Neurologic: Alert. No focality. Laboratory Data: Hemoglobin 8.6. Sodium 142, potassium 3.7, bicarb 26, BUN 15, creatinine 0.4, calc ium 7.7, magnesium 1.6. Current Medications: The patient on include Cipro, metronidazole, Flagyl, metoprolol 25 b.i.d., magn esium sulfate. Assessment And Plan: 1.Acute kidney injury secondary to poor perfusion, ATN, toxic ATN, recovered, resolved. Looked to m mehran on the over volume side. I am going to go ahead and give the patient a single dose of Lasix to est ablish better volume control. 2.Hypokalemia. We will supplement. 3.Hypomagnesemia. We will supplement. 4.Anasarca secondary to malnourish. We will diurese. 5.Small bowel perforation, status post resection. We will follow up with Surgery. Continue current antibiotic. PHILIP/FRANCESCO Voice ID: [id number] Report ID: [id number]
== END 2022-08-17 10:58 | disposition home or self-care (01) | DRG 853 ==
LOC: ER 10:55 → ERHOLD 14:33 → 3RD-ICU 16:18 → 4TH 08-07 14:17
PROVIDERS: ADMIT Internal Medicine; ATTEND Internal Medicine
PROC: 0DBU0ZZ Excision of Omentum, Open Approach (ICD-10-PCS; 2022-08-02)
PROC: 0DNW0ZZ Release Peritoneum, Open Approach (ICD-10-PCS; 2022-08-02)
PROC: 0DN80ZZ Release Small Intestine, Open Approach (ICD-10-PCS; 2022-08-02)
PROC: 5A1945Z Respiratory Ventilation, 24-96 Consecutive Hours (ICD-10-PCS; 2022-08-02)
PROC: 0BH17EZ Insertion of Endotracheal Airway into Trachea, Via Natural or Artificial Opening (ICD-10-PCS; 2022-08-02)
PROC: 3E0336Z Introduction of Nutritional Substance into Peripheral Vein, Percutaneous Approach (ICD-10-PCS; 2022-08-02)
PROC: 0DB80ZZ Excision of Small Intestine, Open Approach (ICD-10-PCS; principal; 2022-08-02 13:30)
PROC: 02HV33Z Insertion of Infusion Device into Superior Vena Cava, Percutaneous Approach (ICD-10-PCS; 2022-08-11)
DX: A41.9 Sepsis, unspecified organism (principal); E43 Unspecified severe protein-calorie malnutrition; J69.0 Pneumonitis due to inhalation of food and vomit; R65.21 Severe sepsis with septic shock; K43.7 Other and unspecified ventral hernia with gangrene; K65.1 Peritoneal abscess; K63.1 Perforation of intestine (nontraumatic); J96.00 Acute respiratory failure, unspecified whether with hypoxia or hypercapnia; N17.0 Acute kidney failure with tubular necrosis; B37.41 Candidal cystitis and urethritis; E66.2 Morbid (severe) obesity with alveolar hypoventilation; I47.20 Ventricular tachycardia, unspecified; I24.8 Other forms of acute ischemic heart disease; M62.82 Rhabdomyolysis; Z68.41 Body mass index [BMI] 40.0-44.9, adult; Z16.24 Resistance to multiple antibiotics; I10 Essential (primary) hypertension; E78.5 Hyperlipidemia, unspecified; D63.8 Anemia in other chronic diseases classified elsewhere; N28.1 Cyst of kidney, acquired; E11.65 Type 2 diabetes mellitus with hyperglycemia; J98.4 Other disorders of lung; I49.3 Ventricular premature depolarization; E83.39 Other disorders of phosphorus metabolism; E27.9 Disorder of adrenal gland, unspecified; D25.9 Leiomyoma of uterus, unspecified; E87.70 Fluid overload, unspecified; E83.52 Hypercalcemia; T80.89XA Other complications following infusion, transfusion and therapeutic injection, initial encounter; Z88.0 Allergy status to penicillin; Z74.01 Bed confinement status; E83.42 Hypomagnesemia; B96.89 Other specified bacterial agents as the cause of diseases classified elsewhere; I48.91 Unspecified atrial fibrillation; E87.6 Hypokalemia; E83.51 Hypocalcemia; Z79.84 Long term (current) use of oral hypoglycemic drugs; Z79.899 Other long term (current) drug therapy; Z20.822 Contact with and (suspected) exposure to COVID-19
CPT/HCPCS: 0240U; 10160; 36415; 71045; 71250; 71260; 74176; 74177; 76770; 80048; 80053; 80069; 80076; 81001; 81003; 82533; 82550; 82553; 82565; 82570; 82805; 82947; 83605; 83690; 83735; 83880; 83970; 84100; 84132; 84134; 84145; 84156; 84165; 84300; 84484; 84550; 85014; 85018; 85025; 85610; 86140; 86704; 86706; 86850; 86900; 86901; 87040; 87070; 87075; 87076; 87077; 87086; 87088; 87102; 87181; 87186; 87205; 87340; 87522; 88304; 88305; 88307; 93005; 93306; 94002; 94003; 94010; 94760; 97116; 97161; 97530; 99285; C9113; J0330; J1100; J1170; J1335; J1450; J1644; J1815; J1940; J2001; J2185; J2250; J2405; J2543; J2704; J3010; J3370; J3475; J3480; J7030; J7040; J7050; J7060; J7120; J7799; Q9967

== ENCOUNTER 2022-08-18 14:37 | Inpatient (IN) | payer BC ==
[2022-08-18] MEDS ORDERED: NA CHLORIDE 0.9% 1,000 ML ONE (15:03)
[2022-08-18 15:25] LABS: Absolute Lymphocytes (CBC) 0.8 K/uL (0.7-4.9); Hematocrit 26.6 % (36.0-45.0); Lymphocytes % 6.2 % (15.3-44.8); MCV 93.2 fL (80-100); RBC Red Blood Cell Count 2.85 M/uL (3.86-4.86)
[2022-08-18 15:38] LABS: Bilirubin Total 0.2 mg/dL (0.2-1.0); Potassium 3.7 mmol/L (3.5-5.1); Protein, Total 5.9 g/dL (6.4-8.2)
--- NOTE | 2022-08-18 15:44 | RAD REPORT ---
EXAM DESCRIPTION: RAD - Chest Single View - 08/18/2022 3:25 pm CLINICAL HISTORY: FEVER COMPARISON: Portable 08/11/2022 TECHNIQUE: AP portable chest image was obtained 08/18/2022 3:25 pm . FINDINGS: Lung volumes are low. Linear stranding in each lung base favored to be atelectasis rather than infiltrate. No dense consolidation or mass lesions seen. Failure and volume overload are not yuniel pected. Right jugular central line and left upper extremity PICC line have been removed since August 11. Heart and vasculature are normal. No measurable pleural effusion and no pneumothorax. No acute bony abnormality seen. No acute aortic findings suspected. IMPRESSION: Bibasilar atelectasis. No acute cardiopulmonary finding seen.
--- NOTE | 2022-08-18 16:03 | RAD REPORT ---
EXAM DESCRIPTION: CT - Abdomen Pelvis W Contrast - 08/18/2022 3:32 pm CLINICAL HISTORY: Fever, Abdominal abscesses COMPARISON: Chest Single View dated 08/18/2022; Puncture Aspiration Of Abcess dated 08/11/2022; CT ABD PELVIS W CONTRAST dated 04/28/2011; Chest Abd Pelvis Wo Con dated 08/02/2022; Chest Abdomen Pelvis W Co nt dated 08/10/2022 TECHNIQUE: Biphasic, helical CT imaging of the abdomen and pelvis was performed following 100 ml non -ionic IV contrast. Oral contrast: No. All CT scans are performed using dose optimization technique as appropriate and may include automated exposure control or mA/KV adjustment according to patient size. FINDINGS: Bibasilar atelectasis changes are present. No pericardial thickening or effusion. The liver, spleen, and pancreas show no suspicious findings. Gallbladder is contracted. No biliary tr ee dilatation. Symmetric renal function is seen with no hydronephrosis or suspicious renal mass. No pyelonephritis o r acute parenchymal process. Exophytic 2 centimeter cyst projects from the anterior upper pole left k idney. This is unchanged back to 2010. A 4 centimeter fully fatty left adrenal mass and a 3 centimete r more solid-appearing left adrenal mass are unchanged or only minimally changed when compared to 201 1 imaging. No suspicious right adrenal finding. No acute stomach or duodenal finding. Laparotomy skin reinier are present in the midline. There is a large hernia defect and pannus overlying the pelvis. There are 3 percutaneous drain tube is in place within the subcutaneous tissue. Air and very little fluid remain around the pigtail drainage catheter s. Herniated and non herniated small bowel loops are not dilated. Wall edema is present. No herniatio n of the transverse colon which is in proximity to the anterior wall postsurgical change. An acute co lizandro process is not suspected. A few punctate extraluminal free air collections are present in proximity to the drain tubes. An acut e bowel perforation is not suspected. There is congestion and edema in the peritoneal fat and subcuta neous fatty tissues. No new or enlarging abscess or fluid collection. Minimal amounts of fluid in the dependent portion of the pelvis. No pneumatosis. No mass or bulky lymphadenopathy. Prominent disc and bone degenerative change again noted. IMPRESSION: There are 3 pigtail drain tube is in place in the subcutaneous fatty tissues of the lowe r abdominal and pelvic pannus. Minimal fluid remains around the pigtail drain tubes. Minimal extralum inal air is present probably part of the drain placement procedure. Herniated bowel loops are evident in the lower pannus. Intact abdominal wall fascia cannot be confirm ed inferiorly. Significant congestion and edema in the subcutaneous fatty tissues of the abdomen is well is the mari toneal fat near the anterior abdominal wall. No new or enlarging abscess.
[2022-08-18] MEDS ORDERED: Meropenem 1000 MG/VIAL IV ONE (17:17)
[2022-08-18] MEDS ORDERED: ACETAMINOPHEN 500 MG TAB ONE (17:18)
[2022-08-18] MEDS ORDERED: NA CHLORIDE 0.9% 100 ML IV ONE (17:18)
[2022-08-18] MEDS ORDERED: METRONIDAZOLE 500mg IVPB 500 MG/100 ML BAG IV ONE (17:18)
--- NOTE | 2022-08-18 17:18 | EDPHYS ---
Physician Documentation [facility] Name: Marcie Da Silva Age: 57 yrs Sex: Female : 1965 Arrival Date: 08/18/2022 Time: 14:40 Bed 6 Private MD: ED Physician Patrick Ramirez HPI: 08/18 17:14 This 57 yrs old Female presents to ER via Wheelchair with complaints of Fever. jmm 17:14 This is a 57-year-old female with history of diabetes mellitus, hyperlipidemia, jmm hypertension the presents emerged department with complaints of fatigue, fever. Patient was recently discharged from inpatient due to multiple abdominal abscess and recent surgical intervention. When patient returned home she developed a fever and was advised to go back to the ED for reevaluation.. Historical: - Allergies: 14:50 PENICILLINS; iw - PMHx: 14:50 Borderline Diabetes; Hypercholesterolemia; Hypertensive disorder; iw - PSHx: 14:50 Hernia sx; iw - Immunization history:: Client reports having NOT received the Covid vaccine. Flu vaccine is not up to date. - Social history:: Smoking status: Patient denies any tobacco usage or history of. ROS: 17:14 Constitutional: Positive for fever. jmm 17:14 Abdomen/GI: Positive for abdominal pain. 17:14 All other systems are negative. Exam: 17:14 Constitutional: This is a well developed, well nourished patient who is awake, alert, jmm and in no acute distress. Head/Face: atraumatic. Eyes: EOMI, no conjunctival erythema appreciated ENT: Moist Mucus Membranes Neck: Trachea midline, Supple Chest/axilla: Normal chest wall appearance and motion. Respiratory: Normal respirations, no respiratory distress appreciated Abdomen/GI: Non distended Back: Normal ROM 17:14 Skin: General appearance color normal MS/ Extremity: Moves all extremities, no obvious deformities appreciated, no edema noted to the lower extremities Neuro: Awake and alert Psych: Behavior is normal, Mood is normal, Patient is cooperative and pleasant 17:14 Cardiovascular: Rate: tachycardic, Rhythm: regular. Vital Signs: 14:47 BP 139 / 84; Pulse 119; Resp 18; Temp 99.3(O); Pulse Ox 98% on R/A; Weight 104.33 kg; iw Height 5 ft. 2 in. (157.48 cm); 15:15 BP 120 / 66; Pulse 120; Pulse Ox 96% ; ll1 16:01 BP 128 / 73; Pulse 120; Resp 18; Pulse Ox 98% ; ll1 17:04 BP 113 / 61; Pulse 124; Resp 19; Temp 102.7; Pulse Ox 98% on R/A; ll1 18:59 Pulse 117; Temp 99.1; Pulse Ox 96% on R/A; ll1 20:00 BP 110 / 70; Pulse 111; Resp 18; Temp 98.6; Pulse Ox 98% on R/A; Pain 0/10; pf1 14:47 Body Mass Index 42.07 (104.33 kg, 157.48 cm) iw MDM: 15:01 Patient medically screened. [facility] 17:16 Data reviewed: vital signs, nurses notes. Management of patient was discussed with the jmm following: Hospitalist: Dr. Bae. Welt Stitcher: Dr. Velasquez. I considered the following discharge prescriptions or medication management in the emergency department Medications were administered in the Emergency Department. See MAR. Counseling: I had a detailed discussion with the patient and/or guardian regarding: the historical points, exam findings, and any diagnostic results supporting the discharge/admit diagnosis, lab results, radiology results, the need for further work-up and treatment in the hospital. 08/18 14:54 Order name: CBC with Diff; Complete Time: 15:35 ms3 08/18 14:54 Order name: CMP; Complete Time: 15:50 ms3 08/18 14:54 Order name: CT Abd/Pelvis - IV Contrast Only; Complete Time: 16:12 [facility] 08/18 18:07 Order name: Blood Culture Adult (2) 08/18 18:07 Order name: Lactate w/ 2H reflex if indic.; Complete Time: 19:32 08/18 18:08 Order name: COVID-19/FLU A+B; Complete Time: 19:32 08/18 15:02 Order name: Chest Single View XRAY; Complete Time: 15:50 [facility] 08/18 18:08 Order name: Misc. Order: Please culture the three BERNARDINO drains with wound culture swabs; Complete Time: 18:36 Administered Medications: 15:57 Drug: NS 0.9% 1000 ml Route: IV; Rate: 1000 ml; Site: right antecubital; ll1 19:00 Follow up: IV Status: Completed infusion; IV Intake: 1000ml pf1 17:21 Drug: Flagyl (metroNIDAZOLE) 500 mg Volume: 100 ml; Route: IVPB; Rate: 200 ml/hr; ll1 Infused Over: 30 mins; Site: right antecubital; 18:04 Follow up: Response: No adverse reaction; IV Status: Completed infusion; IV Intake: ll1 100ml 17:21 Drug: Tylenol 1000 mg Route: PO; ll1 18:23 Follow up: Response: No adverse reaction ll1 18:05 Drug: Meropenem 1 grams Route: IV; Rate: calculated rate; Site: right antecubital; ll1 19:00 Follow up: IV Status: Completed infusion pf1 Disposition: 17:16 Co-signature as Attending Physician, Patrick ONTIVEROS was immediately available on-site ms3 in the Emergency Department for consultation in the care of the patient. Disposition Summary: 08/18/22 17:17 Hospitalization Ordered Hospitalization Status: Inpatient Admission [facility] Provider: Kilo Bae Location: Telemetry/[facility] (Inpatient) [facility] Condition: Stable jm Problem: new jmm Symptoms: are unchanged jmm Bed/Room Type: Standard [facility] Room Assignment: 422(08/18/22 20:06) Diagnosis - Abdominal pain, unspecified jmm - Fever, unspecified jmm Forms: - Medication Reconciliation Form jmm - SBAR form jmm Signatures: Dispatcher [employer] EDMS Cory Neely PA PA jmm Traci Arriaga RN RN Mc Duggan, SPECIAL EDUCATION CLASSROOM AIDE-C SPECIAL EDUCATION CLASSROOM AIDE-Cla1 Valentina Lan RN RN Melany Mayers RN RN ll1 Patrick Ramirez DO DO ms3 Virgie guillen RN pf1 Corrections: (The following items were deleted from the chart) 18:21 17:14 Abdomen WWo Cont ordered. EDMS EDMS 20:06 17:17 jmm cg
--- NOTE | 2022-08-18 17:18 | ER ---
Nurse's Notes [facility] Name: Marcie Da Silva Age: 57 yrs Sex: Female : 1965 Arrival Date: 08/18/2022 Time: 14:40 Bed 6 Private MD: Diagnosis: Abdominal pain, unspecified;Fever, unspecified Presentation: 08/18 14:47 Chief complaint: Patient states: was d/c yesterday , had an emergency surgery on a iw hernia and was septic was seen by Eva, she developed a fever yesterday of 101-102 at home , last night Dr. Velasquez said to come back and be checked out and have another CT. Coronavirus screen: Client presents with at least one sign or symptom that may indicate coronavirus-19. Ebola Screen: Patient negative for fever greater than or equal to 101.5 degrees Fahrenheit, and additional compatible Ebola Virus Disease symptoms Patient denies exposure to infectious person. Patient denies travel to an Ebola-affected area in the 21 days before illness onset. No symptoms or risks identified at this time. Initial Sepsis Screen: Does the patient meet any 2 criteria? No. Patient's initial sepsis screen is negative. Does the patient have a suspected source of infection? No. Patient's initial sepsis screen is negative. Risk Assessment: Do you want to hurt yourself or someone else? Patient reports no desire to harm self or others. Onset of symptoms was August 18, 2022. 14:47 Method Of Arrival: Wheelchair iw 14:47 Acuity: ELISEO 3 iw Historical: - Allergies: 14:50 PENICILLINS; iw - PMHx: 14:50 Borderline Diabetes; Hypercholesterolemia; Hypertensive disorder; iw - PSHx: 14:50 Hernia sx; iw - Immunization history:: Client reports having NOT received the Covid vaccine. Flu vaccine is not up to date. - Social history:: Smoking status: Patient denies any tobacco usage or history of. Screenin:06 [facility] ED Fall Risk Assessment (Adult) Mobility Assist Device Used Yes (1 pt) ll1 Score/Fall Risk Level 0 - 2 = Low Risk Oriented to surroundings, Maintained a safe environment, Educated pt \T\ family on fall prevention, incl call for assistance when getting out of bed, Hourly rounding (assess needs \T\ fall precautionary measures) done. Abuse screen: Denies threats or abuse. Nutritional screening: No deficits noted. Tuberculosis screening: No symptoms or risk factors identified. Assessment: 15:15 General: Appears in no apparent distress. Behavior is calm, cooperative, appropriate ll1 for age. General: fever since yesterday. Pain: Denies pain. Neuro: No deficits noted. Cardiovascular: No deficits noted. 15:59 Reassessment: No changes from previously documented assessment. Patient and/or family ll1 updated on plan of care and expected duration. Pain level reassessed. 17:05 Reassessment: No changes from previously documented assessment. Patient and/or family ll1 updated on plan of care and expected duration. Pain level reassessed. Patient is alert, oriented x 3, equal unlabored respirations, skin warm/dry/pink. 18:15 Reassessment: No changes from previously documented assessment. Patient and/or family ll1 updated on plan of care and expected duration. Pain level reassessed. Patient is alert, oriented x 3, equal unlabored respirations, skin warm/dry/pink. 19:00 Reassessment: No changes from previously documented assessment. Patient and/or family ll1 updated on plan of care and expected duration. Pain level reassessed. Patient is alert, oriented x 3, equal unlabored respirations, skin warm/dry/pink. Vital Signs: 14:47 BP 139 / 84; Pulse 119; Resp 18; Temp 99.3(O); Pulse Ox 98% on R/A; Weight 104.33 kg; iw Height 5 ft. 2 in. (157.48 cm); 15:15 BP 120 / 66; Pulse 120; Pulse Ox 96% ; ll1 16:01 BP 128 / 73; Pulse 120; Resp 18; Pulse Ox 98% ; ll1 17:04 BP 113 / 61; Pulse 124; Resp 19; Temp 102.7; Pulse Ox 98% on R/A; ll1 18:59 Pulse 117; Temp 99.1; Pulse Ox 96% on R/A; ll1 20:00 BP 110 / 70; Pulse 111; Resp 18; Temp 98.6; Pulse Ox 98% on R/A; Pain 0/10; pf1 14:47 Body Mass Index 42.07 (104.33 kg, 157.48 cm) iw ED Course: 14:40 Patient arrived in ED. as 14:44 Mickail, Cory, PA is PHCP. jmm 14:45 Patrick Ramirez DO is Attending Physician. jmm 14:50 Triage completed. iw 14:50 Arm band placed on. iw 14:59 Melany Mayers, RN is Primary Nurse. ll1 15:07 Patient has correct armband on for positive identification. Bed in low position. Call ll1 light in reach. Client placed on continuous cardiac and pulse oximetry monitoring. NIBP monitoring applied. 15:15 Inserted saline lock: 22 gauge in right antecubital area, using aseptic technique. rs5 Blood collected. 15:15 CMP Sent. rs5 15:15 CBC with Diff Sent. rs5 15:27 Chest Single View XRAY In Process Unspecified. EDMS 15:34 CT Abd/Pelvis - IV Contrast Only In Process Unspecified. EDMS 17:17 Kilo Bae MD is Hospitalizing Provider. jmm 18:15 First set of blood cultures drawn by mt. ll1 18:23 Lactate w/ 2H reflex if indic. Sent. ll1 18:23 Blood Culture Adult (2) Sent. ll1 18:36 COVID-19/FLU A+B Sent. ll1 18:37 Lactate w/ 2H reflex if indic. Sent. rs5 18:38 Blood Culture Adult (2) Sent. rs5 18:38 Inserted saline lock: 20 gauge in right forearm, using aseptic technique. Blood rs5 collected. 18:41 IV discontinued, intact, bleeding controlled, No redness/swelling at site. Pressure rs5 dressing applied. 20:34 No provider procedures requiring assistance completed. Patient admitted, IV remains in pf1 place. Administered Medications: 15:57 Drug: NS 0.9% 1000 ml Route: IV; Rate: 1000 ml; Site: right antecubital; ll1 19:00 Follow up: IV Status: Completed infusion; IV Intake: 1000ml pf1 17:21 Drug: Flagyl (metroNIDAZOLE) 500 mg Volume: 100 ml; Route: IVPB; Rate: 200 ml/hr; ll1 Infused Over: 30 mins; Site: right antecubital; 18:04 Follow up: Response: No adverse reaction; IV Status: Completed infusion; IV Intake: ll1 100ml 17:21 Drug: Tylenol 1000 mg Route: PO; ll1 18:23 Follow up: Response: No adverse reaction ll1 18:05 Drug: Meropenem 1 grams Route: IV; Rate: calculated rate; Site: right antecubital; ll1 19:00 Follow up: IV Status: Completed infusion pf1 Medication: 15:07 VIS not applicable for this client. ll1 Intake: 18:04 IV: 100ml; Total: 100ml. ll1 19:00 IV: 1000ml; Total: 1100ml. pf1 Outcome: 17:17 Decision to Hospitalize by Provider. damaris 20:23 Admitted to Tele accompanied by tech, via wheelchair, room 422, with chart, Report pf1 called to ANIA Valencia 20:23 Condition: stable 20:23 Instructed on the need for admit, Demonstrated understanding of instructions. 20:37 Patient left the ED. pf1 Signatures: Dispatcher [employer] EDMS Cory Neely PA PA jmm Martinez, Amelia as Williams, Irene, Melany Medeiros RN, RN RN ll1 Virgie guillen RN RN pf1 iRc Tobar rs5 Corrections: (The following items were deleted from the chart) 16:02 16:01 BP 128 / 73; Pulse 124bpm; Resp 18bpm; Pulse Ox 98%; ll1 ll1
--- NOTE | 2022-08-18 18:50 | P.HP ---
Certification for Inpatient Patient admitted to: Inpatient With expected LOS: >2 Midnights Patient will require the following post-hospital care: None Practitioner: I am a practitioner with admitting privileges, knowledge of patient current condition, hospital course, and medical plan of care. Services: Services provided to patient in accordance with Admission requirements found in Title 42 Section 412.3 of the Code of Federal Regulations <Mc Duggan - Last Filed: 08/18/22 18:40> Patient History Date of Service: 08/18/22 Reason for admission: Fever History of Present Illness: 57-year-old female with history of recent complex ventral hernia with bowel obstruction and transverse colon perforation followed by multiple intra- abdominal abscesses with multiple drains in place, diabetes mellitus type 2, hypertension, hyperlipidemia who was discharged from the hospital on 08/17/2022 on Cipro/Flagyl with is routinely monitoring her temperature at home yesterday when she noted fever up to 102. She was advised to come to the hospital for further evaluation. Patient denies any new or worsening symptoms, change in drainage in BERNARDINO drains or worsening pain, shortness of breath. She is evaluated here in the emergency department today her labs are significant for mild leukocytosis white blood cell count 12.[address] abdomen and pelvis shows there are 3 pigtail drain tube is in place in the subcutaneous fatty tissues of the lower abdominal and pelvic pannus. Minimal fluid remains around the pigtail drain tube. Minimal extraluminal air is present probably part of the drain placement procedure. Herniated bowel loops are evident in the lower pannus. Intact abdominal wall fascia cannot be confirmed inferiorly. Significant congestion and edema in the subcutaneous fatty tissues the abdomen is well is the peritoneal fat near the anterior abdominal wall. No new or enlarging abscess. Case was discussed with general surgeryDr. Velasquez, infectious disease Dr. Pugh, patient was started on Merrem, Flagyl. ED provider wishes to admit for further evaluation and management. Blood cultures, wound cultures from 3 BERNARDINO drains obtained in the ED. - Past Medical/Surgical History Diabetic: Yes -: Hypertension -: Hyperlipidemia -: DM2 -: Morbid obesity -: incarcerated Hernia repair -: x1 Psychosocial/ Personal History: Pt lives at home with family - Family History Mother -: Heart disease, Cancer Father -: Heart disease, Hypertension Sister -: Cancer - Social History Alcohol use: No CD- Drugs: No Caffeine use: Yes Place of Residence: Home <Mc Duggan - Last Filed: 08/18/22 18:40> Date of Service: 08/18/22 <CatalinoKilo mota - Last Filed: 08/18/22 21:28> Allergies Penicillins Allergy (Verified 08/02/22 14:16) Itching/Hives/Rash Home Medications: Allopurinol 300 mg PO DAILY 08/03/22 Atorvastatin Calcium 10 mg PO DAILY 08/03/22 Metformin HCl 500 mg PO BID 08/03/22 lisinopriL [Lisinopril] 20 mg PO DAILY 08/03/22 Ciprofloxacin HCl [Cipro] 500 mg PO BID 10 Days #20 tab 08/17/22 Metoprolol Tartrate [Lopressor*] 25 mg PO BID 6AM 6PM #60 tab 08/17/22 metroNIDAZOLE [Flagyl*] 500 mg PO Q6HR 10 Days #40 tab 08/17/22 Review of Systems 10-point ROS is otherwise unremarkable General: Fever <Mc Duggan - Last Filed: 08/18/22 18:40> Physical Examination - Physical Exam General: Alert, In no apparent distress, Oriented x3, Obese HEENT: Atraumatic, PERRLA, Mucous membr. moist/pink, EOMI, Sclerae nonicteric Neck: Supple, 2+ carotid pulse no bruit, No LAD, Without JVD or thyroid abnormality Respiratory: Clear to auscultation bilaterally, Normal air movement Cardiovascular: Regular rate/rhythm, Normal S1 S2 Capillary refill: <2 Seconds Gastrointestinal: Normal bowel sounds, No tenderness, Other (Abdominal binder, multiple BERNARDINO drains in place to abdomen without surrounding erythema or cellulitis.) Musculoskeletal: No tenderness Integumentary: No rashes Neurological: Normal speech, Normal strength at 5/5 x4 extr, Normal tone, Normal affect - Studies Laboratory Data (last 24 hrs) 08/18/22 15:14: Sodium 140, Potassium 3.7, BUN 12, Creatinine 0.53 L, Glucose 165 H, Total Bilirubin 0.2, AST 10 L, ALT 14, Alkaline Phosphatase 53 08/18/22 15:14: WBC 12.20 H, Hgb 8.7 L, Hct 26.6 L, Plt Count 332 <Mc Duggan - Last Filed: 08/18/22 18:40> - Studies Laboratory Data (last 24 hrs) 08/18/22 15:14: Sodium 140, Potassium 3.7, BUN 12, Creatinine 0.53 L, Glucose 165 H, Total Bilirubin 0.2, AST 10 L, ALT 14, Alkaline Phosphatase 53 08/18/22 15:14: WBC 12.20 H, Hgb 8.7 L, Hct 26.6 L, Plt Count 332 <Kilo Bae - Last Filed: 08/18/22 21:28> Assessment and Plan - Plan Assessment: Fever-post op patient 08/02/22 Hx of Ex Lap, small bowel resection, partial omentectomy, intra-abdominal abscess drainage, primary small bowel anastomosis , extensive adhesiolysis, and primary abdominal closure 08/11/22 Hx of US guided placement of three BERNARDINO drains in to three separate abdominal wall fluid collections, aspiration of fourth collection DM II non insulin dependent HTN HLD Plan: Fever-post op patient 08/02/22 Hx of Ex Lap, small bowel resection, partial omentectomy, intra-abdominal abscess drainage, primary small bowel anastomosis , extensive adhesiolysis, and primary abdominal closure 08/11/22 Hx of US guided placement of three BERNARDINO drains in to three separate abdominal wall fluid collections, aspiration of fourth collection Blood cultures, wound cultures from three BERNARDINO drains obtained, attending hospitalist spoke with general surgery/infectious disease. Continue merrem/flagyl. SIRS criteria present including Tachycardia, fever, leukocytosis. No source of infection confirmed thus far. DM II non insulin dependent: ACHS accucheck, SSI HTN: Hold oral antihypertensive agents for now, restart when appropriate. HLD: Continue home meds. DVT PPX: Lovenox Code status: Full Discharge Plan: Home Plan to discharge in: 72 Hours - Advance Directives Does patient have a Living Will: No Does patient have a Durable POA for Healthcare: No - Code Status/Comfort Care Code Status Assessed: Yes (Full code) Critical Care: No Time Spent Managing Pts Care (In Minutes): 55 <Mc Duggan - Last Filed: 08/18/22 18:40> Physician Review: Patient Assessed, Agree with Above Assessment and Plan <Kilo Bae - Last Filed: 08/18/22 21:28>
[2022-08-18 19:31] LABS: SARS-COV-2 RT PCR NEGATIVE (NEGATIVE)
[2022-08-18] MEDS ORDERED: ONDANSETRON 4 MG/2 ML VIAL IV PRN (20:55)
[2022-08-18] MEDS: INSULIN -REGULAR HUMAN 50 UNIT/0.5 ML ML SQ SCH (21:00)
[2022-08-18] MEDS: Ringers Lactate 1,000 ML IV SCH (22:35)
[2022-08-18 22:49] VITALS: BMI 43.5
[2022-08-19] MEDS: METRONIDAZOLE 500mg IVPB 500 MG/100 ML BAG IV SCH ×3 (00:45→16:05)
[2022-08-19] MEDS: Meropenem 1,000 MG in NA CHLORIDE 0.9% 100 ML IV SCH ×3 (01:56→16:05)
[2022-08-19] MEDS: ACETAMINOPHEN 500 MG TAB PO PRN ×4 (02:07→22:56)
[2022-08-19 06:27] LABS: Calcium Oxalate Crystals- Ur Few /HPF (None Seen); Specific Gravity > 1.030 (1.005-1.030); Transitional Epithelial <5 /HPF (None Seen); Urine Bacteria None Seen /HPF (<20); Urine Bilirubin NEGATIVE (Negative); Urine Blood Negative (Negative); Urine Clarity Clear (Clear); Urine Color Yellow (Yellow); Urine Glucose TRACE (Negative); Urine Protein 1+ (Negative); Urine Urobilinogen Normal (Normal)
[2022-08-19 06:29] LABS: Absolute Lymphocytes (CBC) 0.5 K/uL (0.7-4.9); Hematocrit 23.6 % (36.0-45.0); Lymphocytes % 4.7 % (15.3-44.8); MCV 92.8 fL (80-100); MPV 7.3 fL (7.6-11.3); RBC Red Blood Cell Count 2.55 M/uL (3.86-4.86)
[2022-08-19 06:43] LABS: Potassium 3.6 mmol/L (3.5-5.1)
[2022-08-19] MEDS: Ringers Lactate 1,000 ML IV SCH (06:55)
[2022-08-19] MEDS: INSULIN -REGULAR HUMAN 50 UNIT/0.5 ML ML SQ SCH ×4 (07:30→21:00)
[2022-08-19] MEDS: ENOXAPARIN 40 MG/0.4 ML SQ SCH (08:50)
--- NOTE | 2022-08-19 18:10 | P.PN ---
Subjective Date of Service: 08/19/22 Chief Complaint: Fever Overnight, she continued to spike fevers. She states that, last night, she experienced chills and diaphoresis for the first time since discharge. Currently, she states that she feels well. She denies any abdominal pain, nausea, vomiting, or diarrhea. Review of Systems 10-point ROS is otherwise unremarkable General: Fever, Chills, Sweats, Malaise Physical Examination - Vital Signs Temperature: 101.2 F Blood Pressure: 126/71 Pulse: 109 Respirations: 16 Pulse Ox (%): 97 Assessment And Plan - Plan - Physical Exam General: Alert, In no apparent distress, Oriented x3 HEENT: Atraumatic, Mucous membr. moist/pink, Sclerae nonicteric Neck: JVD not distended Respiratory: Clear to auscultation bilaterally, Normal air movement Cardiovascular: Regular rate/rhythm, No murmurs, 1-2+ BLE edema Gastrointestinal: Normal bowel sounds, Soft and benign, Non-distended, No tenderness, No rebound, No guarding, Other (3 BERNARDINO drains noted, with minimal output) Musculoskeletal: No clubbing, LUE edema Integumentary: No rashes Neurological: Normal speech, Normal affect # Sepsis secondary to Multiple Post-Operative Intra-Abdominal Abscess s/p CT-guided IR Drain Placement # Recent Admission for Septic Shock likely secondary to Multiple Intra-Abdominal Abscesses and Possible Acute Pyelonephritis (Wound Culture positive for Enterobacter Aerogenes) # Recent Complex Ventral Hernia with Bowel Obstruction and Transverse Colon Perforation s/p Exploratory laparotomy, small bowel resection, partial omentectomy, intra-abdominal abscess drainage, primary small bowel anastomosis, extensive adhesiolysis, and primary abdominal closure (08/02/2022) She initially met sepsis criteria based on temperature > 100.9 F, HR > 90 bpm and WBC > 12,000 and the suspected source was an intra-abdominal abscess. - Sepsis order set was initiated - Lactate = 1.0 - Blood cultures drawn after antibiotics were given because she was on antibiotics prior to arrival - Broad spectrum antibiotics started: Meropenem + Metronidazole - In regards to fluids: - 30 mL/kg of IV fluids was not given based on lactate <4 - Consulted General Surgery and spoke with Dr. Velasquez - recommendations appreciated - Consulted Infectious Diseases and spoke with Dr. Pugh - recommendations appreciated - Blood cultures and abscess cultures repeated - Meropenem and Metronidazole started per ID # Bilateral Lower Extremity and Left Upper Extremity Edema - Ordered Doppler ultrasounds to evaluate for DVT # Left Upper Lobe Cavitary Lesion (3.5 cm) - Last admission, Pulmonary Medicine consulted and Dr. 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
--- NOTE | 2022-08-19 22:23 | RAD REPORT ---
EXAM DESCRIPTION: US - Extrem Venous W Compress Rafat - 08/19/2022 10:12 pm CLINICAL HISTORY: rule out DVT COMPARISON: None. TECHNIQUE: Real-time sonographic evaluation of the bilateral lower extremity common femoral, superfi cial femoral, popliteal and posterior tibial veins was performed. FINDINGS: Normal compressibility, flow augmentation, phasic flow and spontaneous flow are identified in the left and right lower extremity common femoral, superficial femoral, popliteal and posterior t ibial veins. No intraluminal filling defects seen. IMPRESSION: No DVT in either lower extremity.
--- NOTE | 2022-08-19 22:25 | RAD REPORT ---
EXAM DESCRIPTION: US - UPPER EXTREMITY VENOUS UNILATE - 08/19/2022 10:12 pm CLINICAL HISTORY: Left arm pain and swelling COMPARISON: None. TECHNIQUE: Real-time sonographic evaluation of the left upper extremity deep venous systems was perf ormed. FINDINGS: Normal compressibility, flow augmentation, phasic flow and spontaneous flow are identified in the left upper extremity deep venous system. No intraluminal filling defects seen. Internal jugul ar and subclavian veins are normal as well. Echogenic material is present in the superficial left basilic vein. There was no compression of this vessel. Doppler evaluation shows no identifiable flow. IMPRESSION: Superficial venous thrombosis in the left basilic vein. No deep venous thrombosis of the left upper extremity.
[2022-08-20] MEDS: METRONIDAZOLE 500mg IVPB 500 MG/100 ML BAG IV SCH ×3 (01:19→16:28)
[2022-08-20] MEDS: Meropenem 1,000 MG in NA CHLORIDE 0.9% 100 ML IV SCH ×3 (01:19→16:31)
[2022-08-20 05:36] LABS: Absolute Lymphocytes (CBC) 0.8 K/uL (0.7-4.9); Hematocrit 23.2 % (36.0-45.0); MCV 92.5 fL (80-100); MPV 7.3 fL (7.6-11.3)
[2022-08-20 05:44] LABS: Potassium 3.7 mmol/L (3.5-5.1)
[2022-08-20] MEDS: INSULIN -REGULAR HUMAN 50 UNIT/0.5 ML ML SQ SCH ×4 (07:30→21:00)
[2022-08-20] MEDS: ACETAMINOPHEN 500 MG TAB PO PRN ×3 (08:37→22:35)
[2022-08-20] MEDS: ENOXAPARIN 40 MG/0.4 ML SQ SCH (08:38)
--- NOTE | 2022-08-20 18:17 | P.PN ---
Subjective Date of Service: 08/20/22 Chief Complaint: Fever Overnight, she continued to spike fevers; however, her fever curve seems to be down-trending. She denies any further episodes of chills or diaphoresis. She states that she feels well and endorses no concerns at this time. She denies any abdominal pain, nausea, vomiting, or diarrhea. Review of Systems 10-point ROS is otherwise unremarkable General: Fever, Chills, Sweats Physical Examination - Vital Signs Temperature: 100.1 F Blood Pressure: 123/65 Pulse: 109 Respirations: 20 Pulse Ox (%): 96 Assessment And Plan - Plan - Physical Exam General: Alert, In no apparent distress, Oriented x3 HEENT: Atraumatic, Mucous membr. moist/pink, Sclerae nonicteric Neck: JVD not distended Respiratory: Clear to auscultation bilaterally, Normal air movement Cardiovascular: Regular rate/rhythm, No murmurs, 1-2+ BLE edema Gastrointestinal: Normal bowel sounds, Soft and benign, Non-distended, No tenderness, No rebound, No guarding, Other (3 BERNARDINO drains noted, with minimal output) Musculoskeletal: No clubbing, LUE edema Integumentary: No rashes Neurological: Normal speech, Normal affect # Sepsis secondary to Multiple Post-Operative Intra-Abdominal Abscess s/p CT- guided IR Drain Placement # Recent Admission for Septic Shock likely secondary to Multiple Intra-Abdominal Abscesses and Possible Acute Pyelonephritis (Wound Culture positive for Enterobacter Aerogenes) # Recent Complex Ventral Hernia with Bowel Obstruction and Transverse Colon Perforation s/p Exploratory laparotomy, small bowel resection, partial omen tectomy, intra-abdominal abscess drainage, primary small bowel anastomosis, extensive adhesiolysis, and primary abdominal closure (08/02/2022) She initially met sepsis criteria based on temperature > 100.9 F, HR > 90 bpm and WBC > 12,000 and the suspected source was an intra-abdominal abscess. - Sepsis order set was initiated - Lactate = 1.0 - Blood cultures drawn after antibiotics were given because she was on antibiotics prior to arrival - Broad spectrum antibiotics started: Meropenem + Metronidazole - In regards to fluids: - 30 mL/kg of IV fluids was not given based on lactate <4 - Consulted General Surgery and spoke with Dr. Velasquez - recommendations appreciated - Consulted Infectious Diseases and spoke with Dr. Pugh - recommendations appreciated - Blood cultures and abscess cultures repeated - Meropenem and Metronidazole started per ID # Superficial Left Basilic Vein Thrombosis - Bilateral Lower extremity Doppler = "no DVT in either lower extremity" - Left upper extremity Doppler = "superficial venous thrombosis in the left basilic vein. No deep venous thrombosis of the left upper extremity" - Discussed with Dr. Ta - given her risk factors, he recommends starting apixaban - Discussed with Dr. Velasquez - no contraindication for apixaban from his surgical standpoint - Started apixaban # Left Upper Lobe Cavitary Lesion (3.5 cm) - Last admission, Pulmonary Medicine consulted and Dr. 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
[2022-08-20] MEDS: APIXABAN 5 MG TABLET PO SCH (21:59)
[2022-08-21] MEDS: METRONIDAZOLE 500mg IVPB 500 MG/100 ML BAG IV SCH ×3 (01:33→16:16)
[2022-08-21] MEDS: Meropenem 1,000 MG in NA CHLORIDE 0.9% 100 ML IV SCH ×3 (01:33→16:19)
[2022-08-21] MEDS: INSULIN -REGULAR HUMAN 50 UNIT/0.5 ML ML SQ SCH ×4 (07:30→20:45)
[2022-08-21] MEDS: APIXABAN 5 MG TABLET PO SCH ×2 (08:13→20:45)
--- NOTE | 2022-08-21 09:28 | P.CNS ---
Chief Complaint: Fever History of Present Illness: 57-year-old female with history of recent complex ventral hernia with bowel obstruction and transverse colon perforation followed by multiple intra- abdominal abscesses with multiple drains in place, diabetes mellitus type 2, hypertension, hyperlipidemia who was discharged from the hospital on 08/17/2022 on Cipro/Flagyl with is routinely monitoring her temperature at home yesterday when she noted fever up to 102. She was advised to come to the hospital for further evaluation. Patient denies any new or worsening symptoms, change in drainage in BERNARDINO drains or worsening pain, shortness of breath. She is evaluated here in the emergency department today her labs are significant for mild leukocytosis white blood cell count 12.[address] abdomen and pelvis shows there are 3 pigtail drain tube is in place in the subcutaneous fatty tissues of the lower abdominal and pelvic pannus. Minimal fluid remains around the pigtail drain tube. Minimal extraluminal air is present probably part of the drain placement procedure. Herniated bowel loops are evident in the lower pannus. Inta ct abdominal wall fascia cannot be confirmed inferiorly. Significant congestion and edema in the subcutaneous fatty tissues the abdomen is well is the peritoneal fat near the anterior abdominal wall. No new or enlarging abscess. ID has been consulted for fever and Leukocytosis Allergies Penicillins Allergy (Verified 08/02/22 14:16) Itching/Hives/Rash Home Medications: Allopurinol 300 mg PO DAILY 08/03/22 Atorvastatin Calcium 10 mg PO DAILY 08/03/22 Metformin HCl 500 mg PO BID 08/03/22 lisinopriL [Lisinopril] 20 mg PO DAILY 08/03/22 Ciprofloxacin HCl [Cipro] 500 mg PO BID 10 Days #20 tab 08/17/22 Metoprolol Tartrate [Lopressor*] 25 mg PO BID 6AM 6PM #60 tab 08/17/22 metroNIDAZOLE [Flagyl*] 500 mg PO Q6HR 10 Days #40 tab 08/17/22 - Past Medical/Surgical History Diabetic: Yes -: Hypertension -: Hyperlipidemia -: DM2 -: Morbid obesity -: incarcerated Hernia repair -: x1 Psychosocial/ Personal History: Pt lives at home with family - Family History Mother Medical History: Heart disease, Cancer Father Medical History: Heart disease, Hypertension Sister Medical History: Cancer - Social History Alcohol use: No CD- Drugs: No Caffeine use: Yes Place of Residence: Home Physical Examination Temp Pulse Resp BP Pulse Ox 99.5 F 105 H 16 123/72 98 08/21/22 08:00 08/21/22 08:00 08/21/22 08:00 08/21/22 08:00 08/21/22 08:00 General: Alert, In no apparent distress, Oriented x3 Respiratory: Clear to auscultation bilaterally Cardiovascular: Irregular heart rate/rhythm (patient aware and will do outpatient f/u) Gastrointestinal: Hypoactive, Other ([address]) Musculoskeletal: Swelling (2+ bilateral legs) Integumentary: Other (3 BERNARDINO drains) Neurological: Normal speech, Normal tone, Normal affect Acetaminophen (Acetaminophen 500 Mg Tab) 500 mg PO Q4HP PRN PRN Reason: TEMP > 100' F Last Admin: 08/20/22 22:35 Dose: 500 mg Apixaban (Apixaban 5 Mg Tablet) 5 mg PO BID [facility] Last Admin: 08/21/22 08:13 Dose: 5 mg Metronidazole/Sodium Chloride (Flagyl 500mg/100 Ml Iv Premix) 500 mg in 100 mls @ 200 mls/hr IV Q8HR [facility]; Protocol Last Admin: 08/21/22 08:23 Dose: 100 mls Meropenem 1,000 mg/ Sodium (Chloride) 100 mls @ 200 mls/hr IV Q8HR [facility] Last Admin: 08/21/22 08:14 Dose: 100 mls Insulin Human Regular (Insulin -Regular Human 50 Unit/0.5 Ml Ml) 0 unit SQ ACHS [facility]; Protocol Last Admin: 08/21/22 07:30 Dose: Not Given Ondansetron HCl (Ondansetron 4 Mg/2 Ml Vial) 4 mg IV Q6HP PRN PRN Reason: NAUSEA / VOMITING Sodium Chloride (Flush Normal Saline 10 Ml) 10 ml IV BID [facility] Last Admin: 08/21/22 08:14 Dose: 10 ml Microbiology 08/18/22 18:15 Blood - Blood Aerobic Blood Culture - Preliminary No growth in 24 hours. 08/18/22 18:15 Blood - Blood Anaerobic Blood Culture - Preliminary No growth in 24 hours. Imagings Data: CT - Abdomen Pelvis W Contrast - 08/18/2022 IMPRESSION: There are 3 pigtail drain tube is in place in the subcutaneous fatty tissues of the lower abdominal and pelvic pannus. Minimal fluid remains around the pigtail drain tubes. Minimal extraluminal air is present probably part of the drain placement procedure. Herniated bowel loops are evident in the lower pannus. Intact abdominal wall fascia cannot be confirmed inferiorly. Significant congestion and edema in the subcutaneous fatty tissues of the abdomen is well is the peritoneal fat near the anterior abdominal wall. No new or enlarging abscess. RAD - Chest Single View - 08/18/2022 IMPRESSION: Bibasilar atelectasis. No acute cardiopulmonary finding seen. US - Extrem Venous W Compress Rafat - 08/19/2022 IMPRESSION: No DVT in either lower extremity. US - UPPER EXTREMITY VENOUS UNILATE - 08/19/2022 IMPRESSION: Superficial venous thrombosis in the left basilic vein. - Problems (1) Intra-abdominal abscess Current Visit: No Status: Acute Plan: Cultures: 08/18 ABD wound: Negative 08/18 BC: Negative Antibiotics: IV Meropenem and Flagly (08/19 to) Recommendation: Continue current IV antibiotics for total of 2 weeks duration (2) Leukocytosis Current Visit: No Status: Acute Plan: Elevated on admission and resolved now ID will keep monitor the WBC trends Conclusions/Impression: Sepsis secondary to Multiple Post-Operative Intra-Abdominal Abscess s/p CT- guided IR Drain Placement Recent Admission for Septic Shock likely secondary to Multiple Intra-Abdominal Abscesses and Possible Acute Pyelonephritis (Wound Culture positive for Enterobacter Aerogenes) Recent Complex Ventral Hernia with Bowel Obstruction and Transverse Colon Perforation s/p Exploratory laparotomy, small bowel resection, partial omentectomy, intra-abdominal abscess drainage, primary small bowel anastomosis, extensive adhesiolysis, and primary abdominal closure (08/02/2022) Superficial Left Basilic Vein Thrombosis Left Upper Lobe Cavitary Lesion Hyperglycemia in Type II Diabetes Mellitus Hypertension Dyslipidemia Left Adrenal Mass Fatty Left Adrenal Mass Uterine Fibroid Left Renal Cyst Morbid Obesity Case has been discussed with Litzy Ernst Thank you Dr. Storey for consult
[2022-08-21] MEDS: ACETAMINOPHEN 500 MG TAB PO PRN (12:51)
[2022-08-22] MEDS: METRONIDAZOLE 500mg IVPB 500 MG/100 ML BAG IV SCH ×3 (00:52→16:13)
[2022-08-22] MEDS: Meropenem 1,000 MG in NA CHLORIDE 0.9% 100 ML IV SCH ×3 (00:53→16:12)
[2022-08-22 04:04] LABS: Potassium 3.8 mmol/L (3.5-5.1)
[2022-08-22] MEDS: INSULIN -REGULAR HUMAN 50 UNIT/0.5 ML ML SQ SCH ×4 (07:30→19:50)
[2022-08-22] MEDS: APIXABAN 5 MG TABLET PO SCH ×2 (08:48→20:10)
[2022-08-22] MEDS ORDERED: POTASSIUM CL SA 10 MEQ TAB PO ONE (08:56)
[2022-08-22] MEDS ORDERED: POTASSIUM 25 MEQ EFFERV TAB PO ONE (09:00)
[2022-08-22 09:34] VITALS: O2SAT 97
--- NOTE | 2022-08-22 10:48 | P.PN ---
Subjective Date of Service: 08/22/22 Chief Complaint: Fever Patient sitting in the chair with family members at the bedside. No major event upon examination Physical Examination - Vital Signs Temperature: 98.3 F Blood Pressure: 133/65 Pulse: 101 Respirations: 14 Pulse Ox (%): 97 - Physical Exam General: Alert, In no apparent distress, Oriented x3 Cardiovascular: Edema (2+ legs), Irregular heart rate/rhythm Gastrointestinal: Hypoactive, Other (1 BERNARDINO drain on the LLQ with mid line surgical incions) Musculoskeletal: Swelling (2+ legs) Integumentary: Other (mild line abdomen surgical incision with 1 BERNARDINO drain LLQ) Neurological: Normal speech, Normal tone, Normal affect - Studies Acetaminophen (Acetaminophen 500 Mg Tab) 500 mg PO Q4HP PRN PRN Reason: TEMP > 100' F Last Admin: 08/21/22 12:51 Dose: 500 mg Apixaban (Apixaban 5 Mg Tablet) 5 mg PO BID [facility] Last Admin: 08/22/22 08:48 Dose: 5 mg Metronidazole/Sodium Chloride (Flagyl 500mg/100 Ml Iv Premix) 500 mg in 100 mls @ 200 mls/hr IV Q8HR [facility]; Protocol Last Admin: 08/22/22 08:48 Dose: 100 mls Meropenem 1,000 mg/ Sodium (Chloride) 100 mls @ 200 mls/hr IV Q8HR [facility] Last Admin: 08/22/22 08:48 Dose: 100 mls Insulin Human Regular (Insulin -Regular Human 50 Unit/0.5 Ml Ml) 0 unit SQ ACHS [facility]; Protocol Last Admin: 08/22/22 07:30 Dose: Not Given Ondansetron HCl (Ondansetron 4 Mg/2 Ml Vial) 4 mg IV Q6HP PRN PRN Reason: NAUSEA / VOMITING Sodium Chloride (Flush Normal Saline 10 Ml) 10 ml IV BID [facility] Last Admin: 08/22/22 08:50 Dose: 10 ml Microbiology Data (last 24 hrs): Microbiology 08/18/22 18:15 Blood - Blood Aerobic Blood Culture - Preliminary No growth in 24 hours. 08/18/22 18:15 Blood - Blood Anaerobic Blood Culture - Preliminary No growth in 24 hours. Assessment And Plan - Current Problems (Diagnosis) (1) Intra-abdominal abscess Current Visit: No Status: Acute Plan: Cultures: 08/18 ABD wound: Negative 08/18 BC: Negative Antibiotics: IV Meropenem and Flagly (08/19 to) Recommendation: Continue current IV antibiotics for total of 2 weeks duration (2) Leukocytosis Current Visit: No Status: Acute Plan: Elevated on admission and resolved now ID will keep monitor the WBC trends - Plan Sepsis secondary to Multiple Post-Operative Intra-Abdominal Abscess s/p CT- guided IR Drain Placement Recent Admission for Septic Shock likely secondary to Multiple Intra-Abdominal Abscesses and Possible Acute Pyelonephritis (Wound Culture positive for Enterobacter Aerogenes) Recent Complex Ventral Hernia with Bowel Obstruction and Transverse Colon Perforation s/p Exploratory laparotomy, small bowel resection, partial omentectomy, intra-abdominal abscess drainage, primary small bowel anastomosis, extensive adhesiolysis, and primary abdominal closure (08/02/2022) Superficial Left Basilic Vein Thrombosis Left Upper Lobe Cavitary Lesion Hyperglycemia in Type II Diabetes Mellitus Hypertension Dyslipidemia Left Adrenal Mass Fatty Left Adrenal Mass Uterine Fibroid Left Renal Cyst Morbid Obesity Case has been discussed with Litzy Ernst Physician Review: Patient Assessed, Agree with Above Assessment and Plan
[2022-08-22] MEDS: ACETAMINOPHEN 500 MG TAB PO PRN (22:06)
[2022-08-22 22:09] VITALS: BP 115/56
--- NOTE | 2022-08-22 22:35 | RAD REPORT ---
EXAM DESCRIPTION: RAD - Chest Single View - 08/22/2022 10:20 pm CLINICAL HISTORY: Device placement PICC line placement IMPRESSION: PICC line with its tip in the mid to distal superior vena cava
[2022-08-22 23:10] VITALS: TEMP 98.9
== END 2022-08-22 23:25 | disposition home health service (06) | DRG 862 ==
LOC: ER 14:37 → ERHOLD 18:28 → 4TH 20:18
PROVIDERS: ADMIT Internal Medicine; ATTEND Hospitalist
PROC: 02HV33Z Insertion of Infusion Device into Superior Vena Cava, Percutaneous Approach (ICD-10-PCS; principal; 2022-08-22)
DX: T81.43XA Infection following a procedure, organ and space surgical site, initial encounter (principal); A41.9 Sepsis, unspecified organism; K65.1 Peritoneal abscess; Z68.41 Body mass index [BMI] 40.0-44.9, adult; I82.612 Acute embolism and thrombosis of superficial veins of left upper extremity; E66.01 Morbid (severe) obesity due to excess calories; E78.5 Hyperlipidemia, unspecified; I10 Essential (primary) hypertension; E11.65 Type 2 diabetes mellitus with hyperglycemia; J98.4 Other disorders of lung; N28.1 Cyst of kidney, acquired; E27.9 Disorder of adrenal gland, unspecified; D25.9 Leiomyoma of uterus, unspecified; R60.0 Localized edema; Z88.0 Allergy status to penicillin; Z79.84 Long term (current) use of oral hypoglycemic drugs; Z28.310 Unvaccinated for COVID-19; Z79.899 Other long term (current) drug therapy; Z20.822 Contact with and (suspected) exposure to COVID-19; Y83.8 Other surgical procedures as the cause of abnormal reaction of the patient, or of later complication, without mention of misadventure at the time of the procedure
CPT/HCPCS: 0240U; 36415; 36569; 71045; 74177; 80048; 80053; 81001; 82947; 83605; 85025; 87040; 87070; 87205; 93970; 93971; 96361; 96365; 96367; 99285; J1650; J2185; J7030; J7120; Q9967

== ENCOUNTER 2022-09-01 09:49 | Inpatient (IN) | payer BC ==
[2022-09-01 10:33] LABS: Absolute Lymphocytes (CBC) 1.5 K/uL (0.7-4.9); Hematocrit 26.6 % (36.0-45.0); Lymphocytes % 10.5 % (15.3-44.8); MCV 92.3 fL (80-100); MPV 6.5 fL (7.6-11.3); RBC Red Blood Cell Count 2.88 M/uL (3.86-4.86)
[2022-09-01 10:37] LABS: Protime INR 1.3
[2022-09-01 10:47] LABS: SARS-CoV-2 Antigen Rapid Res Negative (Negative)
[2022-09-01 10:52] LABS: ALT/SGPT 15 U/L (13-56); AST/SGOT 12 U/L (15-37); Albumin 2.2 g/dL (3.4-5.0); Alkaline Phosphatase 44 U/L (45-117); BUN Blood Urea Nitrogen 10 mg/dL (7-18); Bicarbonate 27 mmol/L (21-32); Bilirubin Total 0.2 mg/dL (0.2-1.0); Glomerular Filtration Rate 110 ml/min (=/>90); Glucose Level 154 mg/dL (74-106); NT PRO-BNP 519 pg/mL (<125); Protein, Total 6.2 g/dL (6.4-8.2); Sodium Level 142 mmol/L (136-145); Troponin High Sensitivity 11.2 pg/mL (<58.9)
[2022-09-01 11:01] LABS: Bilirubin Direct < 0.1 mg/dL (0-0.2)
[2022-09-01] MEDS ORDERED: FUROSEMIDE 40 MG/4 ML VIAL ONE (11:15)
--- NOTE | 2022-09-01 11:55 | RAD REPORT ---
EXAM DESCRIPTION: CT - Chest For Pe Angio - 09/01/2022 11:44 am CLINICAL HISTORY: Chest pain. recent DVT of arm, sob COMPARISON: Chest Abd Pelvis Wo Con dated 08/02/2022 TECHNIQUE: CT angiogram of the pulmonary arteries was performed with MIP. All CT scans are performed using dose optimization technique as appropriate and may include automated exposure control or mA/KV adjustment according to patient size. FINDINGS: No evidence of pulmonary thromboembolism. No acute aortic finding demonstrated. Mild linear atelectasis is present in both posterior lung bases. Small left pleural effusion. No concerning bony finding. 4 cm left adrenal mass noted, presumably myelolipoma. IMPRESSION: No evidence of pulmonary thromboembolism. Small left pleural effusion with atelectasis in both lung bases.
--- NOTE | 2022-09-01 12:02 | RAD REPORT ---
EXAM DESCRIPTION: RAD - Chest Single View - 09/01/2022 10:30 am CLINICAL HISTORY: DYSPNEA Chest pain. COMPARISON: Chest Single View dated 08/22/2022; Chest Single View dated 08/18/2022; Chest Single View dated 08/11/2022; Chest Single View dated 08/09/2022 FINDINGS: Portable technique limits examination quality. Linear atelectasis is present in the left lung base. The lungs are otherwise clear. The heart is mild ly enlarged in size. Right-sided PICC line has tip in the SVC.
--- NOTE | 2022-09-01 12:07 | EDPHYS ---
Physician Documentation [facility] Name: Marcie Da Silva Age: 57 yrs Sex: Female : 1965 Arrival Date: 09/01/2022 Time: 09:53 Bed 3 Private MD: Bandar Stanton ED Physician Kedar Albarran HPI: 09/01 11:48 This 57 yrs old Female presents to ER via Wheelchair with complaints of Leg Swelling, rn sob. 11:48 The patient presents with swelling. The complaints affect the right leg and left leg. rn Onset: The symptoms/episode began/occurred 3 week(s) ago. Modifying factors: The symptoms are alleviated by nothing. the symptoms are aggravated by nothing. Associated signs and symptoms: Pertinent positives: swelling. Severity of symptoms: At their worst the symptoms were moderate, in the emergency department the symptoms are unchanged. The patient has not experienced similar symptoms in the past. The patient has been recently been admitted at [facility]. Pt sent by Dr. Stanton for CHF, no hx of CHF but 3-4 weeks of progressively worsening lower leg swelling and sob. Pt reports resting HR for her is 100-110. Does not take lasix at home. Multiple recent admissions and on eliquis for LUE DVT.. Historical: - Allergies: 10:00 PENICILLINS; ko1 - PMHx: 10:00 Borderline Diabetes; Hypertensive disorder; Hypercholesterolemia; ko1 - PSHx: 10:00 Hernia sx; ko1 - Immunization history:: Adult Immunizations unknown. - Social history:: Smoking status: Patient denies any tobacco usage or history of. - Family history:: not pertinent. - Hospitalizations: : The patient was recently seen at [facility]. ROS: 11:48 Constitutional: Negative for fever, chills, and weight loss, Eyes: Negative for injury, rn pain, redness, and discharge, Neck: Negative for injury, pain, and swelling, Cardiovascular: + lower ext edema, negative for chest pain Respiratory: + sob Abdomen/GI: Negative for abdominal pain, nausea, vomiting, diarrhea, and constipation, MS/Extremity: + swelling bilateral lower ext Skin: Negative for injury, rash, and discoloration, Neuro: Negative for headache, weakness, numbness, tingling, and seizure. Exam: 11:48 Constitutional: This is a well developed, well nourished patient who is awake, alert, rn and in no acute distress. Head/Face: Normocephalic, atraumatic. ENT: No stridor Cardiovascular: Tachycardic, regular. No pulse deficits. Respiratory: + mild tachypnea, no retractions Abdomen/GI: soft, non-tender Skin: Warm, dry MS/ Extremity: Pulses equal, no cyanosis. 3+ pitting edema bilateral lower ext, equal circumference. Neuro: Awake and alert, GCS 15 12:06 ECG was reviewed by the Attending Physician. rn Vital Signs: 09:58 BP 131 / 88; Pulse 110; Resp 20; Temp 98.3; Pulse Ox 98% ; Weight 107.95 kg; Height 5 ko1 ft. 2 in. (157.48 cm); Pain 0/10; 12:45 BP 133 / 92; Pulse 105; Resp 15; Pulse Ox 97% on R/A; hb 14:04 BP 120 / 86; Pulse 99; Resp 17; Pulse Ox 99% on R/A; hb 15:53 BP 126 / 86; Pulse 87; Resp 16; Pulse Ox 99% on R/A; hb 09:58 Body Mass Index 43.53 (107.95 kg, 157.48 cm) ko1 MDM: 09:54 Patient medically screened. rn 12:04 Differential diagnosis: DVT, PE, CHF, edema, kidney failure. Data reviewed: vital rn signs, nurses notes, lab test result(s), radiologic studies, CT scan, plain films, and as a result, I will admit patient. Consideration of Admission/Observation Patient was admitted/placed on observation. Independent interpretation of the following test(s) in the Emergency Department EKG: See my EKG interpretation above X-Ray: My interpretation is CXR neg for pneumothorax or pneumonia. Counseling: I had a detailed discussion with the patient and/or guardian regarding: the historical points, exam findings, and any diagnostic results supporting the discharge/admit diagnosis, lab results, radiology results, the need for further work-up and treatment in the hospital. Response to treatment: the patient's symptoms have mildly improved after treatment, and as a result, I will admit patient. 12:04 Management of patient was discussed with the following: Hospitalist: Discussed case and rn further management with hospitalist service. . 09/01 09:56 Order name: Basic Metabolic Panel; Complete Time: 11:02 rn 09/01 09:56 Order name: CBC with Diff; Complete Time: 11:02 rn 09/01 09:56 Order name: LFT's; Complete Time: 11:02 rn 09/01 09:56 Order name: NT PRO-BNP; Complete Time: 11:02 rn 09/01 09:56 Order name: PT-INR; Complete Time: 11:02 rn 09/01 09:56 Order name: Troponin HS; Complete Time: 11:02 rn 09/01 09:56 Order name: SARS RAPID; Complete Time: 11:02 rn 09/01 14:18 Order name: Liver (Hepatic) Function EDMS 09/01 14:18 Order name: Urinalysis EDMS 09/01 14:18 Order name: Basic Metabolic Panel EDMS 09/01 14:18 Order name: Basic Metabolic Panel EDMS 09/01 14:18 Order name: Basic Metabolic Panel EDMS 09/01 14:18 Order name: Basic Metabolic Panel EDMS 09/01 14:18 Order name: CBC with Automated Diff EDMS 09/01 09:56 Order name: XRAY Chest (1 view); Complete Time: 12:03 rn 09/01 09:56 Order name: EKG; Complete Time: 09:56 rn 09/01 09:56 Order name: Cardiac monitoring; Complete Time: 10:28 rn 09/01 09:56 Order name: EKG - Nurse/Tech; Complete Time: 12:20 rn 09/01 09:56 Order name: IV Saline Lock; Complete Time: 10:28 rn 09/01 11:08 Order name: CT Chest For PE Angio; Complete Time: 12:03 rn 09/01 14:18 Order name: 60g Consistent Carbohydrate (ADA 1800/2000) EDMS 09/01 14:18 Order name: CBC with Automated Diff EDMS 09/01 14:18 Order name: CBC with Automated Diff EDMS 09/01 14:18 Order name: CBC with Automated Diff EDMS 09/01 14:18 Order name: Lipid Profile EDMS 09/01 14:18 Order name: Lipid Profile EDMS 09/01 14:18 Order name: Troponin High Sensitivity EDMS 09/01 14:18 Order name: Troponin High Sensitivity EDMS 09/01 14:18 Order name: Troponin High Sensitivity EDMS 09/01 09:56 Order name: Labs collected and sent; Complete Time: : rn 09/01 09:56 Order name: O2 Per Protocol; Complete Time: rn 09/01 09:56 Order name: O2 Sat Monitoring; Complete Time: : rn EC:19 Rate is 106 beats/min. Rhythm is regular. QRS [place] is Normal. HI interval is normal. rn QRS interval is normal. QT interval is normal. No Q waves. T waves are Normal. No ST changes noted. Clinical impression: Sinus tachycardia. Interpreted by me. Reviewed by me. Administered Medications: 11:20 Drug: Lasix (furosemide) 40 mg Route: IVP; Site: PICC; Disposition Summary: 09/01/22 12:06 Hospitalization Ordered Hospitalization Status: Observation rn Provider: Kilo Bae rn Location: Telemetry/MedSurg (observation) rn Condition: Stable rn Problem: an ongoing problem rn Symptoms: have improved rn Bed/Room Type: Standard rn Room Assignment: 413(09/01/22 14:54) Diagnosis - Unspecified combined systolic (congestive) and diastolic (congestive) heart failure rn - Edema, unspecified rn - Tachycardia, unspecified rn Forms: - Medication Reconciliation Form rn - SBAR form rn Signatures: Dispatcher [employer] EDLA Kedar Albarran MD MD rn Baxter, Heather RN Fifi Price, RN RN ko1 Corrections: (The following items were deleted from the chart) 12:20 12:06 ECG was reviewed by the Attending Physician. rn rn 14:54 12:06 rn
--- NOTE | 2022-09-01 12:07 | ER ---
Nurse's Notes [facility] Name: Marcie Da Silva Age: 57 yrs Sex: Female : 1965 Arrival Date: 09/01/2022 Time: 09:53 Bed 3 Private MD: Bandar Stanton Diagnosis: Unspecified combined systolic (congestive) and diastolic (congestive) heart failure;Edema, unspecified;Tachycardia, unspecified Presentation: 09/01 09:58 Chief complaint: Patient states: cardiology sent me over for IV treatment to get the ko1 fluid off of my legs. Coronavirus screen: At this time, the client does not indicate any symptoms associated with coronavirus-19. Ebola Screen: No symptoms or risks identified at this time. Initial Sepsis Screen: Does the patient meet any 2 criteria? No. Patient's initial sepsis screen is negative. Does the patient have a suspected source of infection? No. Patient's initial sepsis screen is negative. Risk Assessment: Do you want to hurt yourself or someone else? Patient reports no desire to harm self or others. Onset of symptoms was September 01, 2022. 09:58 Method Of Arrival: Wheelchair ko1 09:58 Acuity: ELISEO 3 ko1 Triage Assessment: 10:00 General: Appears in no apparent distress. comfortable, Behavior is calm, cooperative, ko1 appropriate for age. Pain: Denies pain. Historical: - Allergies: 10:00 PENICILLINS; ko1 - PMHx: 10:00 Borderline Diabetes; Hypertensive disorder; Hypercholesterolemia; ko1 - PSHx: 10:00 Hernia sx; ko1 - Immunization history:: Adult Immunizations unknown. - Social history:: Smoking status: Patient denies any tobacco usage or history of. - Family history:: not pertinent. - Hospitalizations: : The patient was recently seen at [facility]. Screenin:28 [facility] ED Fall Risk Assessment (Adult) Score/Fall Risk Level 3 or more points = High hb Risk Oriented to surroundings, Maintained a safe environment, Educated pt \T\ family on fall prevention, incl call for assistance when getting out of bed. Abuse screen: Denies threats or abuse. Denies injuries from another. Nutritional screening: No deficits noted. Tuberculosis screening: No symptoms or risk factors identified. Assessment: 10:28 General: Appears in no apparent distress. Behavior is calm, cooperative. hb 10:46 Pain: Denies pain. Neuro: Level of Consciousness is awake, alert, obeys commands, hb Oriented to person, place, time, situation. Cardiovascular: Patient's skin is warm and dry. 3+ pitting edema noted to BLEs. Respiratory: Respiratory effort is even, unlabored, Respiratory pattern is regular, symmetrical. GI: No signs and/or symptoms were reported involving the gastrointestinal system. : No signs and/or symptoms were reported regarding the genitourinary system. EENT: No signs and/or symptoms were reported regarding the EENT system. Derm: Skin is pink, warm \T\ dry. Musculoskeletal: No signs and/or symptoms reported regarding the musculoskeletal system. 11:30 Reassessment: Patient appears in no apparent distress at this time. Patient and/or hb family updated on plan of care and expected duration. Pain level reassessed. Patient is alert, oriented x 3, equal unlabored respirations, skin warm/dry/pink. 12:30 Reassessment: Patient appears in no apparent distress at this time. Patient and/or hb family updated on plan of care and expected duration. Pain level reassessed. Patient is alert, oriented x 3, equal unlabored respirations, skin warm/dry/pink. 14:04 Reassessment: Patient appears in no apparent distress at this time. Patient and/or hb family updated on plan of care and expected duration. Pain level reassessed. Patient is alert, oriented x 3, equal unlabored respirations, skin warm/dry/pink. 15:53 Reassessment: Patient appears in no apparent distress at this time. Patient and/or hb family updated on plan of care and expected duration. Pain level reassessed. Patient is alert/active/playful, equal unlabored respirations, skin warm/dry/pink. Vital Signs: 09:58 BP 131 / 88; Pulse 110; Resp 20; Temp 98.3; Pulse Ox 98% ; Weight 107.95 kg; Height 5 ko1 ft. 2 in. (157.48 cm); Pain 0/10; 12:45 BP 133 / 92; Pulse 105; Resp 15; Pulse Ox 97% on R/A; hb 14:04 BP 120 / 86; Pulse 99; Resp 17; Pulse Ox 99% on R/A; hb 15:53 BP 126 / 86; Pulse 87; Resp 16; Pulse Ox 99% on R/A; hb 09:58 Body Mass Index 43.53 (107.95 kg, 157.48 cm) ko1 ED Course: 09:53 Patient arrived in ED. as 09:54 Bandar Stanton MD is Private Physician. as 09:54 Kedar Albarran MD is Attending Physician. rn 10:00 Triage completed. ko1 10:00 Arm band placed on right wrist. Patient placed in waiting room, Patient notified of ko1 wait time. 10:26 Patient has correct armband on for positive identification. Placed in gown. Bed in low mm9 position. Call light in reach. Side rails up X2. Adult w/ patient. Warm blanket given. Client placed on continuous cardiac and pulse oximetry monitoring. NIBP monitoring applied. wax coating machine tender on. Pulse ox on. NIBP on. 10:28 SARS RAPID Sent. hb 10:31 XRAY Chest (1 view) In Process Unspecified. EDMS 10:46 Bee Vargas, ANIA is Primary Nurse. hb 10:47 SARS RAPID Sent. hb 11:45 CT Chest For PE Angio In Process Unspecified. EDMS 12:05 Kilo Bae MD is Hospitalizing Provider. rn Administered Medications: 11:20 Drug: Lasix (furosemide) 40 mg Route: IVP; Site: PICC; hb Medication: 10:46 VIS not applicable for this client. hb Outcome: 12:06 Decision to Hospitalize by Provider. rn 17:20 Patient left the ED. hb Signatures: Dispatcher [employer] EDMS Apryl Campa as Kedar Albarran MD MD rn Baxter, Heather, RN RN Fifi Duarte RN RN ko1 Elvi Campa mm9 Corrections: (The following items were deleted from the chart) 10:03 10:00 Arm band placed on right wrist. Patient placed in an exam room, Patient notified ko1 of wait time ko1 10:46 10:28 General: Appears in no apparent distress. Behavior is hb hb
[2022-09-01] MEDS ORDERED: ONDANSETRON 4 MG/2 ML VIAL IV PRN (14:10)
[2022-09-01] MEDS ORDERED: ACETAMINOPHEN 500 MG TAB PO PRN (14:10)
--- NOTE | 2022-09-01 14:19 | P.HP ---
Certification for Inpatient Patient admitted to: Observation With expected LOS: <2 Midnights Patient will require the following post-hospital care: None Practitioner: I am a practitioner with admitting privileges, knowledge of patient current condition, hospital course, and medical plan of care. Services: Services provided to patient in accordance with Admission requirements found in Title 42 Section 412.3 of the Code of Federal Regulations <Jesús Onofre - Last Filed: 09/01/22 18:36> Patient History Date of Service: 09/01/22 Primary Care Provider: Jamarcus Reason for admission: Dyspnea, BLE edema History of Present Illness: 57-year-old female with history of recent complex ventral hernia with bowel obstruction and transverse colon perforation followed by multiple intra- abdominal abscesses, diabetes mellitus type 2, hypertension, hyperlipidemia who was recently discharged from the hospital on IV antibiotics. Her surgery was performed by Dr. Velasquez. Patient presents to the ER with complaints of BLE swelling. She reports having swelling to her lower extremities for more than 3 weeks. 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 She reports associated symptoms of mild shortness of breath and cough. She was recently discharged from the hospital due to LUE DVT. She currently has a double lumen PICC to her RUE. No s/s of infection noted. She is currently receiving Merrem and Flagyl. She is evaluated here in the emergency department today her labs are significant for mild leukocytosis white blood cell count 13.9 glucose 154. Will be admitted under care of Dr. Bae. Cardiology and infectious disease will be consulted for further evaluation and recommendations. - Past Medical/Surgical History Diabetic: Yes -: Hypertension -: Hyperlipidemia -: DM2 -: Morbid obesity -: incarcerated Hernia repair -: x1 Psychosocial/ Personal History: Pt lives at home with family - Family History Mother -: Heart disease, Cancer Father -: Heart disease, Hypertension Sister -: Cancer - Social History Alcohol use: No CD- Drugs: No Caffeine use: Yes <Jesús Onofre - Last Filed: 09/01/22 18:36> Date of Service: 09/02/22 <Kilo Bae - Last Filed: 09/02/22 16:31> Allergies Penicillins Allergy (Verified 08/02/22 14:16) Itching/Hives/Rash Home Medications: RX: Allopurinol 300 mg PO DAILY 08/03/22 RX: Atorvastatin Calcium 10 mg PO DAILY 08/03/22 RX: Metformin HCl 500 mg PO BID 08/03/22 RX: lisinopriL [Lisinopril] 20 mg PO DAILY 08/03/22 RX: Metoprolol Tartrate [Lopressor*] 25 mg PO BID 6AM 6PM #60 tab 08/17/22 RX: metroNIDAZOLE [Flagyl*] 500 mg PO Q6HR 10 Days #40 tab 08/17/22 Apixaban [Eliquis] 2.5 mg PO BID #60 tablet 08/24/22 Review of Systems 10-point ROS is otherwise unremarkable Respiratory: Cough, Shortness of Breath Cardiovascular: Edema Musculoskeletal: Pedal edema <Jesús Onofre - Last Filed: 09/01/22 18:36> Physical Examination - Vital Signs Temperature: 98.3 F Blood Pressure: 131/88 Pulse: 88 Respirations: 20 Pulse Ox (%): 98 - Physical Exam General: Alert, In no apparent distress, Oriented x3 HEENT: Atraumatic, Normocephalic Neck: Supple Respiratory: Diminished Cardiovascular: Edema Capillary refill: <2 Seconds Gastrointestinal: Normal bowel sounds Musculoskeletal: Swelling, Other (BLE +2) Integumentary: No rashes Neurological: Normal speech, Normal strength at 5/5 x4 extr Lymphatics: No axilla or inguinal lymphadenopathy - Studies Laboratory Data (last 24 hrs) 09/01/22 10:26: PT 14.3 H, INR 1.30 09/01/22 10:26: WBC 13.90 H, Hgb 8.7 L, Hct 26.6 L, Plt Count 513 H 09/01/22 10:26: Sodium 142, Potassium 4.0, BUN 10, Creatinine 0.49 L, Glucose 154 H, Total Bilirubin 0.2, AST 12 L, ALT 15, Alkaline Phosphatase 44 L <Jesús Onofre - Last Filed: 09/01/22 18:36> - Studies Laboratory Data (last 24 hrs) 09/02/22 04:25: Sodium 144, Potassium 3.3 L D, BUN 9, Creatinine 0.39 L, Glucose 128 H, Phosphorus 3.9, Magnesium 1.7, Triglycerides 123, Cholesterol 93, HDL Cholesterol 49, Cholesterol/HDL Ratio 1.90 09/02/22 04:25: WBC 6.90, Hgb 7.7 L D, Hct 23.6 L, Plt Count 447 H 09/01/22 17:58: Total Bilirubin 0.2, AST 14 L, ALT 14, Alkaline Phosphatase 42 L <Kilo Bae - Last Filed: 09/02/22 16:31> Assessment and Plan - Plan Assessment Acute on chronic diastolic congestive heart failure Diabetes type 2 [id number] with hyperglycemia Hypertension Hyperlipidemia Colon perforation with intra-abdominal abscess Plan Diuresis with Lasix Cardiology consulted, recommendations appreciated Infectious disease consulted, recommendations appreciated Resume home antibiotics when appropriate Resume home medications when appropriate Strict BRANDEN's Daily weights Accu-Chek before meals and at bedtime with sliding scale insulin Continue statin DVT PPX: Eliquis Code status: Full Discharge Plan: Home Plan to discharge in: 48 Hours - Advance Directives Does patient have a Living Will: No Does patient have a Durable POA for Healthcare: No - Code Status/Comfort Care Code Status Assessed: Yes (Full code) Critical Care: No Time Spent Managing Pts Care (In Minutes): 50 <Jesús Onofre - Last Filed: 09/01/22 18:36> Physician Review: Patient Assessed, Agree with Above Assessment and Plan <Kilo Bae - Last Filed: 09/02/22 16:31>
[2022-09-01] MEDS ORDERED: INSULIN -REGULAR HUMAN 50 UNIT/0.5 ML ML ONE (15:24)
[2022-09-01] MEDS: INSULIN -REGULAR HUMAN 50 UNIT/0.5 ML ML SQ SCH ×2 (16:30→20:50)
[2022-09-01] MEDS ORDERED: FUROSEMIDE 40 MG/4 ML VIAL IV SCH (17:00)
[2022-09-01] MEDS: metroNIDAZOLE 500 MG TABLET PO SCH (17:40)
[2022-09-01 18:25] LABS: Albumin 2.2 g/dL (3.4-5.0); Bilirubin Direct 0.1 mg/dL (0-0.2); Bilirubin Total 0.2 mg/dL (0.2-1.0); Protein, Total 6.3 g/dL (6.4-8.2)
[2022-09-01] MEDS ORDERED: INFLUENZA VACCINE (for 6+ mo) 0.5 ML DOSE IMVAC ONE (20:00)
[2022-09-01] MEDS: ATORVASTATIN 10 MG TAB PO SCH (20:51)
[2022-09-01] MEDS: APIXABAN 2.5 MG TABLET PO SCH (20:51)
[2022-09-02] MEDS: metroNIDAZOLE 500 MG TABLET PO SCH ×4 (00:27→17:10)
[2022-09-02 05:13] LABS: Absolute Lymphocytes (CBC) 1.5 K/uL (0.7-4.9); Hematocrit 23.6 % (36.0-45.0); Lymphocytes % 22.3 % (15.3-44.8); MCV 92.6 fL (80-100); RBC Red Blood Cell Count 2.55 M/uL (3.86-4.86)
[2022-09-02 05:22] LABS: Magnesium 1.7 mg/dL (1.6-2.4); Phosphorus 3.9 mg/dL (2.5-4.9); Potassium 3.3 mmol/L (3.5-5.1)
[2022-09-02] MEDS: KCL 20 MEQ/100 mL IVPB 20 MEQ/100 ML BAG IV SCH ×2 (06:13→09:24)
[2022-09-02] MEDS: INSULIN -REGULAR HUMAN 50 UNIT/0.5 ML ML SQ SCH ×4 (07:30→21:00)
[2022-09-02] MEDS ORDERED: metroNIDAZOLE 500 MG TABLET PO SCH (09:00)
[2022-09-02] MEDS ORDERED: MAGNESIUM SULFATE 1 gm IVPB 1 GM/100 ML BAG IV ONE (09:00)
[2022-09-02] MEDS: APIXABAN 2.5 MG TABLET PO SCH ×2 (09:20→22:10)
[2022-09-02] MEDS: FUROSEMIDE 40 MG/4 ML VIAL IV SCH ×2 (09:20→16:47)
--- NOTE | 2022-09-02 16:33 | P.PN ---
Subjective Date of Service: 09/02/22 Primary Care Provider: Jamarcus Chief Complaint: Dyspnea, BLE edema No acute events overnight. She denies any shortness of breath at rest, but has significant orthopnea. She reports significant lower extremity edema, that has been progressively worsening for several weeks. She denies any chest pain or palpitations. Review of Systems 10-point ROS is otherwise unremarkable Cardiovascular: Orthopnea, Edema Physical Examination - Vital Signs Temperature: 98.3 F Blood Pressure: 127/71 Pulse: 99 Respirations: 16 Pulse Ox (%): 98 - Physical Exam General: Alert, In no apparent distress, Oriented x3 HEENT: Atraumatic, Mucous membr. moist/pink, EOMI, Sclerae nonicteric Neck: JVD not distended (difficult to assess given habitus) Respiratory: Diminished, Crackles/rales (bibasilar) Cardiovascular: Regular rate/rhythm, Normal S1 S2, No gallops, No rubs, No murmurs, Edema (4+ BLE pitting edema) Gastrointestinal: Normal bowel sounds, Soft and benign, Non-distended, No tenderness, No rebound, No guarding Musculoskeletal: No clubbing Integumentary: No rashes Neurological: Normal speech, Cranial nerves 3-12 intact, Normal affect - Studies Laboratory Data (last 24 hrs) 09/02/22 04:25: Sodium 144, Potassium 3.3 L D, BUN 9, Creatinine 0.39 L, Glucose 128 H, Phosphorus 3.9, Magnesium 1.7, Triglycerides 123, Cholesterol 93, HDL Cholesterol 49, Cholesterol/HDL Ratio 1.90 09/02/22 04:25: WBC 6.90, Hgb 7.7 L D, Hct 23.6 L, Plt Count 447 H 09/01/22 17:58: Total Bilirubin 0.2, AST 14 L, ALT 14, Alkaline Phosphatase 42 L Assessment And Plan - Plan # Acute on Chronic Decompensated Diastolic Congestive Heart Failure with Preserved Ejection Fraction # Hypertension - Consult Cardiology and spoke with Dr. Stanton - recommendations appreciated - Chest x-ray = "linear atelectasis is present in the left lung base. The lungs are otherwise clear. The heart is mildly enlarged in size. Right-sided PICC line has tip in the SVC." - CT chest angiogram = "No evidence of pulmonary thromboembolism. Small left pleural effusion with atelectasis in both lung bases." - Transthoracic echocardiogram (08/08/2022) = "1. normal left ventricular ejection fraction 55-60% 2. mild mitral regurgitation 3. thickened aortic valve, no aortic stenosis 4. mild aortic insufficiency 5. diastolic dysfunction" - Diuresis with IV furosemide - Continue home lisinopril, metoprolol - Daily weights - Strict I/O - Cardiac diet, 1.5 L fluid restriction, 2 g Na restriction # Recent Admission for Septic Shock likely secondary to Multiple Intra-Abdominal Abscesses and Possible Acute Pyelonephritis (Wound Culture positive for Enterobacter Aerogenes) # Recent Complex Ventral Hernia with Bowel Obstruction and Transverse Colon Perforation s/p Exploratory laparotomy, small bowel resection, partial omentectomy, intra-abdominal abscess drainage, primary small bowel anastomosis, extensive adhesiolysis, and primary abdominal closure (08/02/2022) - Consulted General Surgery and spoke with Dr. Velasquez - recommendations appreci ated - Appreciate assistance with wound care - Meropenem and Metronidazole started per ID - end date is today (09/03/2022) # Recent Diagnosis of Superficial Left Basilic Vein Thrombosis - Continue home apixaban # Left Upper Lobe Cavitary Lesion (3.5 cm) - On prior admission, Pulmonary Medicine consulted and Dr. 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
[2022-09-02] MEDS ORDERED: INFLUENZA VACCINE (for 6+ mo) 0.5 ML DOSE IMVAC ONE (17:00)
[2022-09-02] MEDS: METOPROLOL TAR 25 MG TAB PO SCH (17:10)
[2022-09-02] MEDS: ATORVASTATIN 10 MG TAB PO SCH (22:11)
[2022-09-03] MEDS: FUROSEMIDE 40 MG/4 ML VIAL IV SCH ×3 (00:04→17:11)
[2022-09-03] MEDS: metroNIDAZOLE 500 MG TABLET PO SCH ×4 (00:08→17:10)
[2022-09-03 05:01] LABS: Absolute Lymphocytes (CBC) 1.5 K/uL (0.7-4.9); Hematocrit 25.8 % (36.0-45.0); Lymphocytes % 17.7 % (15.3-44.8); MCV 92.7 fL (80-100); MPV 7.8 fL (7.6-11.3); RBC Red Blood Cell Count 2.79 M/uL (3.86-4.86)
[2022-09-03 05:28] LABS: Magnesium 1.7 mg/dL (1.6-2.4); Phosphorus 3.4 mg/dL (2.5-4.9); Potassium 3.2 mmol/L (3.5-5.1)
[2022-09-03] MEDS: METOPROLOL TAR 25 MG TAB PO SCH ×2 (06:23→17:10)
[2022-09-03] MEDS: INSULIN -REGULAR HUMAN 50 UNIT/0.5 ML ML SQ SCH ×4 (07:30→21:00)
[2022-09-03] MEDS: lisinopriL 20 MG TAB PO SCH (08:46)
[2022-09-03] MEDS: APIXABAN 2.5 MG TABLET PO SCH ×2 (08:46→21:21)
[2022-09-03] MEDS: allopurinoL 300 MG TAB PO SCH (08:46)
[2022-09-03] MEDS ORDERED: MAGNESIUM SULFATE 1 gm IVPB 1 GM/100 ML BAG IV ONE (09:00)
[2022-09-03] MEDS ORDERED: POTASSIUM CL SA 10 MEQ TAB PO ONE (09:00)
--- NOTE | 2022-09-03 16:48 | P.PN ---
Subjective Date of Service: 09/03/22 Primary Care Provider: Jamarcus Chief Complaint: Dyspnea, BLE edema No acute events overnight. Her orthopnea is unchanged compared to yesterday. Her lower extremity edema seems to have improved compared to yesterday. She denies any chest pain or palpitations. Per Dr. Stanton, plan to diurese an additional 1- 2 days prior to discharge. Review of Systems 10-point ROS is otherwise unremarkable Cardiovascular: Orthopnea, Edema Physical Examination - Vital Signs Temperature: 97.6 F Blood Pressure: 113/56 Pulse: 96 Respirations: 16 Pulse Ox (%): 98 Assessment And Plan - Plan - Physical Exam General: Alert, In no apparent distress, Oriented x3 HEENT: Atraumatic, Mucous membr. moist/pink, EOMI, Sclerae nonicteric Neck: JVD not distended (difficult to assess given habitus) Respiratory: Diminished, Crackles/rales (faint bibasilar) Cardiovascular: Regular rate/rhythm, Normal S1 S2, No gallops, No rubs, No murmurs, Edema (3+ BLE pitting edema) Gastrointestinal: Normal bowel sounds, Soft and benign, Non-distended, No tenderness, No rebound, No guarding Musculoskeletal: No clubbing Integumentary: No rashes Neurological: Normal speech, Cranial nerves 3-12 intact, Normal affect # Acute on Chronic Decompensated Diastolic Congestive Heart Failure with Preserved Ejection Fraction # Hypertension - Consult Cardiology and spoke with Dr. Stanton - recommendations appreciated - Chest x-ray = "linear atelectasis is present in the left lung base. The lungs are otherwise clear. The heart is mildly enlarged in size. Right-sided PI CC line has tip in the SVC." - CT chest angiogram = "No evidence of pulmonary thromboembolism. Small left pleural effusion with atelectasis in both lung bases." - Transthoracic echocardiogram (08/08/2022) = "1. normal left ventricular ejection fraction 55-60% 2. mild mitral regurgitation 3. thickened aortic valve, no aortic stenosis 4. mild aortic insufficiency 5. diastolic dysfunction" - Diuresis with IV furosemide - Continue home lisinopril, metoprolol - Daily weights - Strict I/O - Cardiac diet, 1.5 L fluid restriction, 2 g Na restriction - Requested bilateral lower extremity compression stockings # Recent Admission for Septic Shock likely secondary to Multiple Intra-Abdominal Abscesses and Possible Acute Pyelonephritis (Wound Culture positive for Entero bacter Aerogenes) # Recent Complex Ventral Hernia with Bowel Obstruction and Transverse Colon Perforation s/p Exploratory laparotomy, small bowel resection, partial omentectomy, intra-abdominal abscess drainage, primary small bowel anastomosis, extensive adhesiolysis, and primary abdominal closure (08/02/2022) - Consulted General Surgery and spoke with Dr. Velasquez - recommendations appreciated - Appreciate assistance with wound care - Meropenem and Metronidazole started per ID - end date is today (09/03/2022) # Recent Diagnosis of Superficial Left Basilic Vein Thrombosis - Continue home apixaban # Left Upper Lobe Cavitary Lesion (3.5 cm) - On prior admission, Pulmonary Medicine consulted and Dr. 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
[2022-09-03] MEDS: Meropenem 1,000 MG in NA CHLORIDE 0.9% 100 ML IV SCH (17:00)
[2022-09-03] MEDS: ATORVASTATIN 10 MG TAB PO SCH (21:21)
[2022-09-04] MEDS: metroNIDAZOLE 500 MG TABLET PO SCH ×3 (00:49→12:47)
[2022-09-04] MEDS: FUROSEMIDE 40 MG/4 ML VIAL IV SCH ×3 (00:49→17:27)
[2022-09-04] MEDS: Meropenem 1,000 MG in NA CHLORIDE 0.9% 100 ML IV SCH ×3 (00:50→17:28)
[2022-09-04] MEDS: METOPROLOL TAR 25 MG TAB PO SCH ×2 (05:55→17:35)
[2022-09-04 06:41] LABS: Absolute Lymphocytes (CBC) 1.6 K/uL (0.7-4.9); Hematocrit 25.9 % (36.0-45.0); Lymphocytes % 26.2 % (15.3-44.8); MCV 91.4 fL (80-100); MPV 6.9 fL (7.6-11.3); RBC Red Blood Cell Count 2.83 M/uL (3.86-4.86)
[2022-09-04 06:57] LABS: Magnesium 1.9 mg/dL (1.6-2.4); Phosphorus 3.6 mg/dL (2.5-4.9); Potassium 3.4 mmol/L (3.5-5.1)
[2022-09-04] MEDS: INSULIN -REGULAR HUMAN 50 UNIT/0.5 ML ML SQ SCH ×4 (07:30→20:25)
[2022-09-04] MEDS ORDERED: POTASSIUM CL SA 10 MEQ TAB PO ONE ×2 (09:01→09:03)
[2022-09-04] MEDS: allopurinoL 300 MG TAB PO SCH (10:04)
[2022-09-04] MEDS: APIXABAN 2.5 MG TABLET PO SCH ×2 (10:04→21:54)
[2022-09-04] MEDS: lisinopriL 20 MG TAB PO SCH (10:04)
--- NOTE | 2022-09-04 11:29 | CON ---
History Of Present Illness: This is a known patient to me from previous admission. The patient comi ng in this time with leg swelling. Denies any chest pain, abdominal pain, constipation, or diarrhea. The patient had colon perforation with multiple abscesses and currently being on antibiotic. The p atient is getting meropenem and doing well. She is finishing her antibiotic regimen soon. Denies an y other problem. Her leg swelling has gone down since she has been on Lasix. Past Medical History: Abdominal abscess with colon perforation status post surgical repair, hyperten chloé, hyperlipidemia, diabetes mellitus, morbid obesity, incarcerated hernia repair, . Social History: Nonsmoker, nondrinker. Family History: Noncontributory. Medications: Meropenem. See MAR for other medications. Allergies: PENICILLIN. Review of Systems: A 10-point review was performed. Physical Examination: General: This is a 57-year-old female, lying in bed, sitting in easy chair, not in any acute cardiop ulmonary distress. Vital Signs: Temperature 97, pulse 90, respiration 18, blood pressure 119/69. HEENT: Unremarkable. Neck: Supple. Lungs: Clear to auscultation. Heart: S1, S2. Regular. Abdomen: Soft. Bowel sounds present. Extremities: 2+ edema. Laboratory Data: Shows WBC 6.2 down from 13.9, hemoglobin 8.5, platelets are 429. Chemistry shows B UN of 12, creatinine 0.3. Assessment And Plan: A 57-year-old female with incarcerated hernia and colonic perforation and abdom inal abscess, coming in with leg edema, currently being treated with meropenem. We will recommend on discharge the patient can be switched to Levaquin for 10 more days, consider also adding probiotic. Diabetes mellitus, moderate protein-calorie malnourishment, and anemia of chronic disease, leukocyto sis improving. Continue supportive care and monitor for the patient for signs of infection with feve r and WBC trend. Thank you, Dr. Bae and Dr. Storey for consult. NF/MODL Voice ID: [id number] Report ID: [id number]
[2022-09-04] MEDS: ATORVASTATIN 10 MG TAB PO SCH (21:54)
[2022-09-04 23:49] VITALS: O2SAT 96
[2022-09-05] MEDS: FUROSEMIDE 40 MG/4 ML VIAL IV SCH ×3 (00:13→17:45)
--- NOTE | 2022-09-05 02:56 | P.PN ---
Subjective Date of Service: 09/04/22 Subjective: No new changes, No C/O voiced, Improving Review of Systems 10-point ROS is otherwise unremarkable Physical Examination - Vital Signs Temperature: 97.9 F Blood Pressure: 128/64 Pulse: 96 Respirations: 18 Pulse Ox (%): 96 - Physical Exam General: Alert, In no apparent distress HEENT: Atraumatic, PERRLA, EOMI Neck: Supple, JVD not distended Respiratory: Clear to auscultation bilaterally, Normal air movement Cardiovascular: Regular rate/rhythm, Normal S1 S2 Gastrointestinal: Normal bowel sounds, No tenderness Musculoskeletal: No tenderness Integumentary: No rashes Neurological: Normal speech, Normal tone, Normal affect Lymphatics: No axilla or inguinal lymphadenopathy - Studies Medications List Reviewed: Yes Assessment & Plan - Problems (Diagnosis) (1) Diastolic CHF Current Visit: Yes Status: Acute - Plan 1. Echocardiogram if it has not been performed in the last 6 months 2. last dose of antibiotics in a.m. 3. Continue w/ diureisng 4. Appreciate Cardiology consultation 5. Aggressive diuresis 6. Strict I's and O's 7. Repeat CXR 8. Daily weights 9. Education regarding diet and treatment of congestive heart failure Discharge Plan: Home Plan to discharge in: Greater than 2 days - Advance Directives Does patient have a Living Will: No Does patient have a Durable POA for Healthcare: No Physician Review: Patient Assessed, Agree with Above Assessment and Plan Critical Care: No Time Spent Managing PTS Care (In Minutes): 35
[2022-09-05 04:48] VITALS: BMI 39.1
[2022-09-05] MEDS: METOPROLOL TAR 25 MG TAB PO SCH ×2 (05:14→17:44)
[2022-09-05] MEDS: INSULIN -REGULAR HUMAN 50 UNIT/0.5 ML ML SQ SCH ×3 (07:30→15:57)
--- NOTE | 2022-09-05 08:00 | P.PN ---
Subjective Date of Service: 09/05/22 Primary Care Provider: Jamarcus Chief Complaint: Dyspnea, BLE edema Patient sitting in the chair with daughter at the bedside. No major events over night. Physical Examination - Vital Signs Temperature: 97.1 F Blood Pressure: 115/63 Pulse: 98 Respirations: 18 Pulse Ox (%): 96 - Physical Exam General: Alert, In no apparent distress, Oriented x3 Neck: Supple Respiratory: Clear to auscultation bilaterally Cardiovascular: Normal pulses, Normal S1 S2, Edema (2+ b/l legs) Gastrointestinal: Normal bowel sounds Musculoskeletal: Swelling (2+ b/l legs) Integumentary: Other (healing surgical wound in mid abdomen) Neurological: Normal speech, Normal tone, Sensation intact, Normal affect - Studies Acetaminophen (Acetaminophen 500 Mg Tab) 500 mg PO Q4HP PRN PRN Reason: Pain scale 2-4 (Mild) Allopurinol (Allopurinol 300 Mg Tab) 300 mg PO DAILY [facility] Last Admin: 09/04/22 10:04 Dose: 300 mg Apixaban (Apixaban 2.5 Mg Tablet) 2.5 mg PO BID [facility] Last Admin: 09/04/22 21:54 Dose: 2.5 mg Atorvastatin Calcium (Atorvastatin 10 Mg Tab) 10 mg PO BEDTIME [facility] Last Admin: 09/04/22 21:54 Dose: 10 mg Furosemide (Furosemide 40 Mg/4 Ml Vial) 40 mg IV Q8HR [facility] Last Admin: 09/05/22 00:13 Dose: 40 mg Insulin Human Regular (Insulin -Regular Human 50 Unit/0.5 Ml Ml) 0 unit SQ ACHS [facility]; Protocol Last Admin: 09/04/22 20:25 Dose: Not Given Lisinopril (Lisinopril 20 Mg Tab) 20 mg PO DAILY [facility] Last Admin: 09/04/22 10:04 Dose: 20 mg Metoprolol Tartrate (Metoprolol Tar 25 Mg Tab) 25 mg PO BID 6AM 6PM [facility] Last Admin: 09/05/22 05:14 Dose: 25 mg Ondansetron HCl (Ondansetron 4 Mg/2 Ml Vial) 4 mg IV Q6HP PRN PRN Reason: NAUSEA / VOMITING Sodium Chloride (Flush Normal Saline 10 Ml) 10 ml IV BID [facility] Last Admin: 09/04/22 21:54 Dose: 10 ml Medications List Reviewed: Yes Assessment And Plan - Current Problems (Diagnosis) (1) Colon perforation with abdominal abscess Current Visit: Yes Status: Acute Plan: Cultures: None Antibiotics: Was on Meropenem 09/03 to 09/04 Recommendation: PO Levaquin for 10 days with probiotics when discharge - Plan - Colon perforation with intra-abdominal abscess - Acute on chronic diastolic congestive heart failure - Diabetes type 2 [id number] with hyperglycemia - Hypertension - Hyperlipidemia - Hypertension - Hyperlipidemia - DM2 - Morbid obesity - incarcerated Hernia repair - x1 ID will monitor the patient closely for signs of infection with fever and WBC trends Case has been discussed with Dr. Pguh, N Physician Review: Patient Assessed, Agree with Above Assessment and Plan
[2022-09-05] MEDS: APIXABAN 2.5 MG TABLET PO SCH (08:51)
[2022-09-05] MEDS: lisinopriL 20 MG TAB PO SCH (08:51)
[2022-09-05] MEDS: allopurinoL 300 MG TAB PO SCH (08:51)
[2022-09-05 16:30] VITALS: BP 118/63; TEMP 97.2
--- NOTE | 2022-09-05 19:20 | CON ---
Date of Consultation: 09/04/2022 Reason For Consultation: Congestive heart failure exacerbation. History Of Present Illness: This is a 57-year-old female who had a recent hospital stay with perfora bhumi bowel that was prolonged. She had significant fluid management done. She came into the office a nd appears to be very short of breath with lower extremity edema and acute heart failure and she was tachycardic. She was sent to the emergency room for evaluation where she was found to be in acute he art failure and started on IV Lasix. Past Medical History: Hypertension, dyslipidemia, diabetes, and diastolic heart failure. Medications: Refer to reconciliation sheet for detailed list. Allergies: PENICILLIN. Family History: No premature coronary artery disease or cancer. Social History: She does not smoke or drink. Does not use any drugs. Review of Systems: All systems reviewed and they were negative except for mentioned in HPI. Physical Examination: Vital Signs: Reviewed. Head And Neck: Pupils are equal and reactive to light. Intact eye movements. No JVD. No cervical lymphadenopathy. Neck is supple. Thyroid is not enlarged. Lungs: Clear to auscultation bilaterally. No rhonchi, wheezing, or crackles. No accessory muscle u se. Heart: Regular rate and rhythm. Tachycardic with S3. Abdomen: Soft, nontender. Bowel sounds positive. No organomegaly. No masses or hernia. No rigidi ty or rebound. Extremities: Massive edema bilaterally. No clubbing or cyanosis. Intact pulses. Skin: No rashes. Neurologic: Alert, awake, and oriented x3. No acute focal deficits appreciated. Investigations: BUN 12, creatinine 0.38, and glucose was 127. Assessment And Plan: 1.[id number] diastolic heart failure exacerbation, severely fluid overloaded. Start her on La six 40 mg IV q.8 hours and monitor BUN, creatinine, electrolytes, and input and output. 2.Hypertension. Blood pressure is controlled. Continue current management. 3.Dyslipidemia. Recommend high potency statin. SR/MODL Voice ID: [id number] Report ID: [id number]
--- NOTE | 2022-09-05 19:29 | PN ---
Date of Progress Note: 09/05/2022 Subjective: Seen by bedside, doing clinically well. Her swelling has improved. Shortness of breath has improved. Review of Systems: No chest pain. No shortness of breath on exertion. No nausea, vomiting, or diarrhea. No abdominal pain. No dysuria, polyuria, or urinary urgency. No skin rash or headache. All other systems review ed and they were negative. Physical Examination: Vital Signs: Reviewed. Head And Neck: Pupils are equal and reactive to light. Intact eye movements. No JVD. No cervical lymphadenopathy. Neck is supple. Thyroid is not enlarged. Lungs: Clear to auscultation bilaterally. No rhonchi, wheezing, or crackles. No accessory muscle u se. Heart: Regular rate and rhythm. No extra sounds. Abdomen: Soft, nontender. Bowel sounds positive. No organomegaly. No masses or hernia. No rigidi ty or rebound. Extremities: 2+ pitting edema. No clubbing or cyanosis. Intact pulses. Skin: No rash. Neurologic: Alert, awake, and oriented x3. No acute focal deficits appreciated. Investigations: Labs were reviewed. Assessment/recommendation: 1.[id number] diastolic heart failure exacerbation. Continue IV diuretics. Monitor BUN, creat inine, and electrolytes. 2.Hypertension. Blood pressure is controlled. Continue current management. SR/MODL Voice ID: [id number] Report ID: [id number]
== END 2022-09-05 18:36 | disposition home health service (06) | DRG 291 ==
LOC: ER 09:49 → ERHOLD 14:09 → 4TH 16:54 → OBSVTOIN 09-02 16:01
PROVIDERS: ADMIT Internal Medicine; ATTEND Hospitalist
DX: I11.0 Hypertensive heart disease with heart failure (principal); I50.33 Acute on chronic diastolic (congestive) heart failure; K63.1 Perforation of intestine (nontraumatic); K65.1 Peritoneal abscess; Z68.41 Body mass index [BMI] 40.0-44.9, adult; K46.0 Unspecified abdominal hernia with obstruction, without gangrene; E44.0 Moderate protein-calorie malnutrition; E66.01 Morbid (severe) obesity due to excess calories; E78.5 Hyperlipidemia, unspecified; D25.9 Leiomyoma of uterus, unspecified; D63.8 Anemia in other chronic diseases classified elsewhere; N28.1 Cyst of kidney, acquired; E27.9 Disorder of adrenal gland, unspecified; M10.9 Gout, unspecified; E11.65 Type 2 diabetes mellitus with hyperglycemia; Z88.0 Allergy status to penicillin; Z79.01 Long term (current) use of anticoagulants; Z79.84 Long term (current) use of oral hypoglycemic drugs; Z86.718 Personal history of other venous thrombosis and embolism; Z79.899 Other long term (current) drug therapy; Z20.822 Contact with and (suspected) exposure to COVID-19
CPT/HCPCS: 36415; 71045; 71275; 80048; 80061; 80076; 82947; 83735; 83880; 84100; 84132; 84484; 85025; 85610; 87811; 93005; 96374; 99284; G0378; J1815; J1940; J2185; J3475; J3480; Q9967

== ENCOUNTER 2022-12-04 10:13 | Day surgery (SDC) | payer BC ==
[2022-12-04] MEDS ORDERED: NA CHLORIDE 0.9% 1,000 ML ONE (10:28)
[2022-12-04] MEDS ORDERED: propofoL 200 MG/20 ML VIAL IV ONE ×2 (10:52)
[2022-12-04] MEDS ORDERED: LIDOCAINE 1% MPF 30 ML VIAL ONE (10:53)
[2022-12-04] MEDS ORDERED: Phenylephrine HCl 10 MG/ML 1 ML VIAL ONE (11:35)
[2022-12-04 13:49] VITALS: O2SAT 100
[2022-12-04 13:56] VITALS: TEMP 98.1
[2022-12-04 14:00] VITALS: BP 97/47
== END 2022-12-04 12:50 | disposition home or self-care (01) ==
LOC: OR 10:13
PROVIDERS: ATTEND Surgery
PROC: 0DBN8ZX Excision of Sigmoid Colon, Via Natural or Artificial Opening Endoscopic, Diagnostic (ICD-10-PCS; principal; 2022-12-04 12:00)
DX: K92.1 Melena (principal); K64.8 Other hemorrhoids; D12.5 Benign neoplasm of sigmoid colon
CPT/HCPCS: 82947; 88305; 45385; J2704 ×2; J2370; J2001; J7030